=== PATIENT | male | born 1950 | race Caucasian/White ===

== ENCOUNTER 2022-10-02 17:38 | Inpatient (IN) | payer MEDICARE, BC, SELFPAY ==
[2022-10-02] VITALS (7 sets, daily range): BP systolic 108–149; BP diastolic 79–86; PULSE 87–93; RESP 16–34; TEMP 36.6–37.7; O2SAT 88–94
--- NOTE | ~2022-10-02 | XR_ITS ---
EXAMINATION: XR abdomen/kub 1V DATE: 10/13/2022 16:36 INDICATION: Orogastric tube placement. TECHNIQUE: A supine view of the abdomen was obtained. COMPARISON: Chest single view 10/13/2022 FINDINGS: The lower abdomen is excluded. The orogastric tube tip is in the distal stomach. There are airspace opacities in all right lung zones and in left mid and lower lung zones. There are small pleu ral effusions. No pneumothorax. The heart size is obscured. The endotracheal tube tip is 5.6 cm above the sergio. Median sternotomy wires are noted. A right upper extremity peripherally inserted central venous catheter (PICC) is seen with tip at the superior cavoatrial junction. IMPRESSION: 1. Orogastric tube tip in the distal stomach. 2. Worsened diffuse lung disease, consistent with pulmonary edema versus pneumonia. 3. Worsened small pleural effusions. Reviewed, dictated and finalized at location A. IMPRESSION: 1. Orogastric tube tip in the distal stomach. 2. Worsened diffuse lung disease, consistent with pulmonary edema versus pneumo pema. 3. Worsened small pleural effusions.
--- NOTE | ~2022-10-02 | XR_ITS ---
Portable chest x-ray Comparison: 10/09/2022 at 5:35 AM Clinical History: PICC line repositioning Findings: Right-sided PICC line is now in satisfactory position. ET tube and NG tube are in satisfac tory positions. Moderate bibasilar pulmonary edema pattern and probable minimal pleural effusions are present. Cardiomediastinal silhouette is stable. Bones and soft tissues are unremarkable. Impression: Support tubes are in satisfactory position, as above. Moderate pulmonary edema pattern and small pleural effusions. Reviewed, dictated and finalized at location M. Impression: Support tubes are in satisfactory position, as above. Moderate pulmonary edema pattern and small pleural effusions.
--- NOTE | ~2022-10-02 | XR_ITS ---
EXAMINATION: XR chest 1V portable INDICATION: Respiratory failure TECHNIQUE: Portable AP chest at 0547 hours COMPARISON: 10/02/2022 FINDINGS: The endotracheal tube ends approximately 4.5 cm above the sergio. The nasogastric tube is f ollowed as far as the stomach. Its tip is beyond the inferior margin of the radiograph. A right upper extremity PICC its with this tip in the midsuperior vena cava. Interstitial opacities of the mid and lower lung zones persist with slight improvement. No pleural effusion or pneumothorax. The cardiomed iastinal silhouette is stable. Median sternotomy wires and mediastinal surgical clips are seen, likel y from prior coronary artery bypass grafting. IMPRESSION: 1. Improved interstitial opacities of the mid and lower lung zones, likely improving pulmonary edema. Reviewed, dictated and finalized at location A. IMPRESSION: 1. Improved interstitial opacities of the mid and lower lung zones, likely impr oving pulmonary edema.
--- NOTE | ~2022-10-02 | XR_ITS ---
XR chest 2V 10/02/2022 18:44 Indication: Shortness of breath and cough Procedure: 2 view chest Comparison: No prior studies for comparison. Findings: Status post median sternotomy for CABG. Heart size normal. No edema. Bibasilar airspace con solidation, consistent with pneumonia. No pneumothorax. No acute osseous abnormality. Impression: 1: Bibasilar airspace disease, compatible with pneumonia. Reviewed, dictated and finalized at location A. Impression: 1: Bibasilar airspace disease, compatible with pneumonia.
--- NOTE | ~2022-10-02 | XR_ITS ---
EXAMINATION: XR chest 1V portable DATE: 10/08/2022 06:17 INDICATION: Respiratory failure. Pneumonia. TECHNIQUE: A single frontal view of the chest was obtained. COMPARISON: Chest single view 10/07/2022 FINDINGS: There are airspace opacities in the mid and lower lung zones. There is a small left pleural effusion. No pneumothorax. The heart size is normal. There are changes of heart valve replacement. T he endotracheal tube tip is 3.4 cm above the sergio. The nasogastric tube tip is beyond the inferior margin of the radiograph, but at least to the stomach. A right upper extremity peripherally inserted central venous catheter (PICC) is seen with tip in the superior vena cava. IMPRESSION: 1. Worsened airspace opacities in the mid and lower lung zones, consistent with pneumonia. 2. Small left pleural effusion. Reviewed, dictated and finalized at location A.
--- NOTE | ~2022-10-02 | XR_ITS ---
EXAMINATION: XR chest 1V portable INDICATION: Shortness of breath TECHNIQUE: Portable AP chest at 0741 hours COMPARISON: 10/04/2022 FINDINGS: Airspace opacities of the mid and lower lung zones persist but have improved. No pleural ef fusion or pneumothorax. The cardiomediastinal silhouette is normal. Median sternotomy wires are consi stent with prior cardiac surgery. IMPRESSION: 1. Improved airspace opacities of the mid and lower lung zones, consistent with atelectasis versus pn eumonia versus pulmonary edema. Reviewed, dictated and finalized at location A. IMPRESSION: 1. Improved airspace opacities of the mid and lower lung zones, consistent with atelectasis versus pneumonia versus pulmonary edema.
--- NOTE | ~2022-10-02 | US_ITS ---
EXAMINATION: US abdomen limited DATE: 10/05/2022 13:37 INDICATION: Elevated liver function tests TECHNIQUE: Multiple grayscale and Doppler ultrasound images of the abdomen were obtained. COMPARISON: None available FINDINGS: Bowel gas obscures visualization of the pancreas. The visualized portions of the pancreas a re unremarkable. The liver is normal with normal echogenicity and echotexture. No surface nodularity. Normal hepatopetal flow in the main portal vein. The gallbladder is normal with no abnormal wall thi ckening, pericholecystic fluid or stones. The normal common bile duct measures 6 mm. There was no son ographic Huang sign. IMPRESSION: 1. No sonographic correlate for the patient's symptoms. Reviewed, dictated and finalized at location A.
--- NOTE | ~2022-10-02 | XR_ITS ---
EXAMINATION: XR chest 1V portable DATE: 10/06/2022 05:37 INDICATION: Respiratory failure. Pneumonia. TECHNIQUE: A single frontal view of the chest was obtained. COMPARISON: Chest single view 10/05/2022 FINDINGS: There are airspace opacities in the mid and lower lung zones. No pleural effusion or pneumo thorax. The heart size is normal. There are changes of aortic valve replacement. The endotracheal tub e tip is 4.3 cm above the sergio. The nasogastric tube tip is beyond the inferior margin of the radio graph, but at least to the stomach. A right upper extremity peripherally inserted central venous cath eter (PICC) is seen with tip in the superior vena cava. IMPRESSION: 1. Stable airspace opacities in the mid and lower lung zones, consistent with pneumonia. Reviewed, dictated and finalized at location A. IMPRESSION: 1. Stable airspace opacities in the mid and lower lung zones, consistent with p neumonia.
--- NOTE | ~2022-10-02 | XR_ITS ---
EXAMINATION: XR chest 1V portable DATE: 10/07/2022 06:30 INDICATION: Respiratory failure. Pneumonia. TECHNIQUE: A single frontal view of the chest was obtained. COMPARISON: Chest one view 10/06/2022 FINDINGS: There are airspace opacities in the mid and lower lung zones. No pleural effusion or pneumo thorax. The heart size is normal. The endotracheal tube tip is 5.2 cm above the sergio. Median sterno belinda wires and mediastinal surgical clips are seen, likely from prior coronary artery bypass grafting . The nasogastric tube tip is beyond the inferior margin of the radiograph, but at least to the stoma ch. A right upper extremity peripherally inserted central venous catheter (PICC) is seen with tip in the superior vena cava. IMPRESSION: 1. Stable airspace opacities in the mid and lower lung zones, consistent with pneumonia. Reviewed, dictated and finalized at location A. IMPRESSION: 1. Stable airspace opacities in the mid and lower lung zones, consistent with p neumonia.
--- NOTE | ~2022-10-02 | XR_ITS ---
EXAMINATION: XR chest PICC line INDICATION: PICC insertion TECHNIQUE: Portable AP chest at 1106 hours COMPARISON: 0832 hours FINDINGS: A right upper extremity PICC has been inserted which ends with its tip in the distal superi or vena cava. The endotracheal tube ends approximately 2.6 cm above the sergio. The nasogastric tube is followed as far as the stomach. Its tip is beyond the inferior margin of the radiograph. There are stable airspace opacities of the mid and lower lung zones. No pleural effusion or pneumothorax ident ified. IMPRESSION: 1. Right upper extremity PICC ending with its tip in the distal superior vena cava, otherwise no sign ificant interval change. Reviewed, dictated and finalized at location A. IMPRESSION: 1. Right upper extremity PICC ending with its tip in the distal superior vena c denice, otherwise no significant interval change.
--- NOTE | ~2022-10-02 | XR_ITS ---
EXAMINATION: XR chest ET placement INDICATION: Respiratory failure TECHNIQUE: Portable AP chest at 0832 hours COMPARISON: 0741 hours FINDINGS: An endotracheal tube is been inserted which ends 2.4 cm above the sergio. The nasogastric t ube is followed as far as the stomach. Its tip is beyond the inferior margin of the radiograph. Airsp judith opacities of the mid and lower lung zones persist without significant change. No definite pleural effusion or pneumothorax identified. The cardiomediastinal silhouette is stable. IMPRESSION: 1. Support tubes in adequate position. 2. Airspace opacities of the mid and lower lung zones, consistent with atelectasis versus pneumonia v ersus pulmonary edema. Reviewed, dictated and finalized at location A. IMPRESSION: 1. Support tubes in adequate position. 2. Airspace opacities of the mid and lower lung zones, consistent with atelecta sis versus pneumonia versus pulmonary edema.
--- NOTE | ~2022-10-02 | XR_ITS ---
EXAMINATION: XR chest 1V portable DATE: 10/12/2022 07:32 INDICATION: Respiratory failure TECHNIQUE: frontal view of the chest was obtained. COMPARISON: Chest radiograph dated 10/11/22 FINDINGS: Endotracheal tube tip 5.6 cm above the sergio. Nasogastric tube extends to the stomach with distal ti p near the level of the gastric outlet. Right upper extremity peripherally inserted central venous ca theter (PICC) tip at the superior cavoatrial junction. Opacities in bilateral mid and lower lung zones. Indistinct left hemidiaphragm suggesting small left pleural effusion. No pneumothorax. Cardiac silhouette is obscured. Median sternotomy wires, ostial ma rkers and mediastinal surgical clips consistent with prior coronary artery bypass grafting. Aortic va lve repair. Retained epicardial pacemaker leads. IMPRESSION: 1. Opacities in bilateral mid and lower lung zones which could represent pulmonary edema, pneumonia, atelectasis or some combination thereof. 2. Likely small left pleural effusion. Reviewed, dictated and finalized at location A. IMPRESSION: 1. Opacities in bilateral mid and lower lung zones which could represent pulmon anne marie edema, pneumonia, atelectasis or some combination thereof. 2. Likely small left pleural effusion.
--- NOTE | ~2022-10-02 | XR_ITS ---
EXAMINATION: XR chest 1V portable INDICATION: Shortness of breath TECHNIQUE: Portable AP chest at 1114 hours COMPARISON: 10/02/2022 FINDINGS: There are airspace opacities of the mid and lower lung zones with worsening on the left. No pleural effusion or pneumothorax. Cardiomegaly is noted. Median sternotomy wires and mediastinal malka gical clips are seen, likely from prior coronary artery bypass grafting. IMPRESSION: 1. Airspace opacities of the mid and lower lung zones with worsening on the left, consistent with ate lectasis versus pneumonia. Reviewed, dictated and finalized at location A. IMPRESSION: 1. Airspace opacities of the mid and lower lung zones with worsening on the lef t, consistent with atelectasis versus pneumonia.
--- NOTE | ~2022-10-02 | XR_ITS ---
Portable chest x-ray Comparison: 10/13/2022 Clinical History: PICC line position Findings: Right-sided PICC line is present, tip is in the right subclavian region. Endotracheal tube and NG tube are in satisfactory positions. Bilateral groundglass and interstitial pulmonary disease is present. No definite pleural effusion or pneumothorax. Cardiomediastinal silhouette is stable. Link mariza and soft tissues are unremarkable. Impression: Right-sided PICC line tip is in the right subclavian region. Consider further advancement of the SVC. Stable pulmonary disease, as above. Correlate for pulmonary edema, infection, and/or chronic intersti tial disease. Additional support tubes, as above. Reviewed, dictated and finalized at location . Impression: Right-sided PICC line tip is in the right subclavian region. Consider further a dvancement of the SVC. Stable pulmonary disease, as above. Correlate for pulmonary edema, infection, a nd/or chronic interstitial disease. Additional support tubes, as above.
--- NOTE | ~2022-10-02 | XR_ITS ---
Portable chest x-ray Comparison: 10/09/2022 Clinical History: Respiratory failure Findings: Endotracheal tube, NG tube, and right-sided PICC line are in place. Moderate pulmonary wesley ma pattern is present. Cardiomediastinal silhouette is stable. Bones and soft tissues are unremarkab le. Impression: Moderate groundglass pulmonary edema pattern. Support tubes, as above. Reviewed, dictated and finalized at location . Impression: Moderate groundglass pulmonary edema pattern. Support tubes, as above.
--- NOTE | ~2022-10-02 | XR_ITS ---
Portable chest x-ray Comparison: 10/08/2022 Clinical History: Respiratory failure Findings: Endotracheal tube, NG tube are in satisfactory positions. Right-sided PICC line is in plac e, however the tip is now reversed back upon itself in the right subclavian region. There is mild to moderate bibasilar pulmonary edema pattern and probable small pleural effusions. Cardiomediastinal s ilhouette is stable. Bones and soft tissues are unremarkable. Impression: Right-sided PICC line tip has become malpositioned since prior exam, with the line reversed upon itse lf in the right subclavian region. Repositioning of the PICC line is advised to ensure tip placement in the SVC. Moderate bibasilar pulmonary edema with small bilateral pleural effusions. Additional support tubes, as above. Reviewed, dictated and finalized at location M. Impression: Right-sided PICC line tip has become malpositioned since prior exam, with the l ine reversed upon itself in the right subclavian region. Repositioning of the P ICC line is advised to ensure tip placement in the SVC. Moderate bibasilar pulmonary edema with small bilateral pleural effusions. Additional support tubes, as above.
--- NOTE | ~2022-10-02 | XR_ITS ---
Portable chest x-ray Comparison: 10/12/2022 Clinical History: Respiratory failure Findings: Endotracheal tube, NG tube, and right-sided PICC line are in place. There is mild bibasila r pulmonary edema pattern, improved from prior exam. Cardiomediastinal silhouette is stable. Bones a nd soft tissues are unremarkable. Impression: Mild pulmonary edema pattern, improved from prior exam. Support tubes, as above. Reviewed, dictated and finalized at location . Impression: Mild pulmonary edema pattern, improved from prior exam. Support tubes, as above.
--- NOTE | ~2022-10-02 | XR_ITS ---
EXAMINATION: XR abdomen NG/feed tube insert INDICATION: OG tube insertion TECHNIQUE: Portable AP KUB-[id number] at 0833 hours COMPARISON: None available FINDINGS: The OG tube is in the stomach. The bowel gas pattern is nonspecific. Airspace opacities are noted in the lung bases. IMPRESSION: 1. OG tube in the stomach. Reviewed, dictated and finalized at location A. IMPRESSION: 1. OG tube in the stomach.
--- NOTE | 2022-10-02 17:56 | ECG_ITS ---
Measurements Intervals [place] Rate: 92 P: 36 NH: 182 QRS: -66 QRSD: 142 T: 24 QT: 413 QTc: 513 Interpretive Statements SINUS RHYTHM RIGHT BUNDLE BRANCH BLOCK [120+ ms QRS DURATION, UPRIGHT V1, 40+ ms S IN I/aVL/V4/V5/V6] LEFT ANTERIOR FASCICULAR BLOCK [QRS AXIS <= -45, QR IN I, RS IN II] MINIMAL VOLTAGE CRITERIA FOR LVH, CONSIDER NORMAL VARIANT [MEETS CRITERIA IN ONE OF: R(aVL), S(V1), R(V5), R(V5/V6)+S(V1)] NO PREVIOUS ECG AVAILABLE FOR COMPARISON Electronically Signed On 10-02-2022 18:41:01 CDT by Tasha Ruiz M.D.
--- NOTE | 2022-10-02 18:22 | PC.NURSE ---
Pt placed on 4 liters NC, improved to 92%. No bed available at this time, returned to waiting room. Charge nurse aware. EKG and labs sent. Niece waiting with patient, instructed to alert RN with any change in status.
[2022-10-02 18:26] LABS: Basophils Percent Auto 0.1 % (0.2-1.2); Hematocrit 42.3 % (42.0-52.0); Hemoglobin 14.8 g/dL (14.0-18.0); Immature Granulocyte Absolute 0.05 K/mm3 (0.00-0.031); Immature Granulocyte Percent A 0.5 % (0-0.5); Lymphocytes Absolute Auto 0.79 K/mm3 (0.9-3.2); Lymphocytes Percent Auto 8.6 % (18.3-44.2); Mean Corpuscular Hemoglobin 32.4 pg (26-34); Mean Corpuscular Volume 92.6 fl (80-100); Mean Platelet Volume 9.7 fl (7.4-10.4); Monocytes Absolute Auto 0.7 K/mm3 (0.1-0.6); Monocytes Percent Auto 7.4 % (2.6-8.5); Neutrophils Absolute Auto 7.6 K/mm3 (1.3-6.7); Neutrophils Percent Auto 83.4 % (45.5-73.1); Platelet Count Result 199 k/mm3 (150-375); Red Blood Count 4.57 M/mm3 (4.6-6.20); Red Cell Distribution Width 12.8 % (11.5-14.5); White Blood Count 9.1 K/mm3 (4.5-10.0)
[2022-10-02 18:32] LABS: Alanine Aminotransferase 65 U/L (6-50); Albumin Level 4.5 g/dL (3.5-5.1); Alkaline Phosphatase 83 U/L (38-126); Anion Gap 12 mmol/L (8-16); Aspartate Amino Transferase 106 U/L (17-59); Bilirubin,Total 1.1 mg/dL (0.2-1.3); Blood Urea Nitrogen 29 mg/dL (9-20); Calcium 8.6 mg/dL (8.4-10.2); Carbon Dioxide 26 mmol/L (22-30); Chloride 97 mmol/L (98-107); Estimated CRCL calculation 36 ml/min; Estimated Glomerular Filt Rate 43; Glucose 213 mg/dL (65-110); Potassium 3.4 mmol/L (3.4-5.0); Sodium 135 mmol/L (137-145)
--- NOTE | 2022-10-02 20:34 | ED.SOB ---
HPI - SOB/Dyspnea General Chief Complaint: Shortness of Breath/Dyspnea Stated Complaint: Covid eval Time Seen by Provider: 10/02/22 19:59 History of Present Illness HPI Narrative: Patient is a 71-year-old male with a history of diabetes, hypertension, hyperlipidemia presenting with cough and shortness of breath. Patient states that for the last several days he has had a productive cough as well as shortness of breath. States that he has had a decreased appetite. States that he might have COVID. He denies chest pain. No headache, numbness or weakness, abdominal pain, vomiting, diarrhea, dysuria, leg swelling. Related Data Home Medications Medication Instructions Recorded Confirmed aspirin 81 mg tablet,delayed 81 mg PO DAILY 05/31/19 10/02/22 release (Adult Low Dose Aspirin) multivitamin,mi-byoh-ndxqriix 1 tablet PO DAILY 05/31/19 10/02/22 (Complete Multivitamin tablet) Allergies Allergy/AdvReac Type Severity Reaction Status Date / Time No Known Allergies Allergy Unknown Verified 10/02/22 22:04 Review of Systems Review of Systems: All systems reviewed & are unremarkable except as noted in HPI and below PMFSH Past Medical History Medical History (Updated 10/03/22 @ 23:36 by Rabia Bui MD) Aortic stenosis Status post aortic valve replacement x2 CHF (congestive heart failure), NYHA class II Managed by Dr. Romero: Echocardiogram 07/10/2021: Suboptimal image quality contrast used. Hyperdynamic left ventricle with EF of greater than 70%, impaired diastolic relaxation grade 1, aortic valve velocity 2.5 m/sec mean gradient 14 valve area 2.02 centimeters squared with normal appearing bioprosthetic inspiris 23 mm valve with normal valve gradients RVSP is normal at 31 Chronic renal insufficiency, stage III (moderate) Diabetes Gout Hypercholesterolemia Hypertension Incarcerated ventral hernia Situational depression Surgical History Surgical History (Updated 10/03/22 @ 04:14 by Willa Nguyễn DO) H/O aortic valve replacement with porcine valve H/O ventral hernia repair History of aortic valve replacement with bioprosthetic valve Patient initially had a porcine aortic valve replacement then had a bioprosthetic aortic valve replacement. 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 HEAD: Normocephalic, atraumatic. EYES: PERRLA and EOMI. ENT: Nares clear, no rhinorrhea or epistaxis. Mucous membranes moist. NECK: Supple. CHEST: Coarse breath sounds, + cough, saturating low to mid 90s on 4 L nasal cannula HEART: Regular rate and rhythm. Normal peripheral pulses. AB
[2022-10-02 20:49] LABS: Influenza A QL RT-PCR Negative (Negative); Influenza B QL RT-PCR Negative (Negative); RSV RNA, RT-PCR Negative (Negative); SARS-CoV-2 RNA PCR Positive (Negative)
[2022-10-02] MEDS: SODIUM CHLORIDE 0.9% IV 1,000 ML 999 ML IV CONT (20:57)
[2022-10-02 21:09] LABS: Lactic Acid Reflex 1.4 mmol/L (0.7-2.0)
[2022-10-02 21:20] LABS: Appearance Urine Cloudy (Clear); Bacteria Urine None Seen /hpf; Bilirubin Urine 1+ (Negative); Blood Urine 3+ (Negative); Color Urine Dark Yellow (Yellow); Glucose Urine UA Negative (Negative); Ketones Urine Trace mg/dL (Negative); Leukocyte Esterase Ur Negative LEU/UL (Negative); Mucus Urine Present /lpf; Need Manual Microscopic Reviewed; Nitrate Urine Negative (Negative); Protein Urine 4+ mg/dL (Negative); RBC Urine 0-2 /hpf (0-2); Specific Grav Ur 1.031 (1.001-1.035); Squamous Epithelial Cell Urine Few /hpf (Few); WBC Urine 0-5 /hpf; pH Urine 5.5 (5.0-9.0)
[2022-10-02 21:21] LABS: Add Urine Microscopic? YES
--- NOTE | 2022-10-02 22:00 | ADMGEN ---
This patient, Gume Ellis, was admitted to Medical Room 248-. Patient/family oriented to hospital policies and general routines including ID bracelet, bed and alarms, visiting hours, pain management, procedures, bathroom and other care routines, personal items, smoking policy, room service/diet, and visiting hours. Information on how to activate the Rapid Response Team has been discussed. Patient/Family are encouraged to report perceived risks to care and to ask questions if they do not understand what they are told or what they should do.
[2022-10-03] VITALS (16 sets, daily range): BP systolic 107–116; BP diastolic 64–70; PULSE 63–93; RESP 16–20; TEMP 36.6–36.8; O2SAT 88–94
[2022-10-03] MEDS: ZOLPIDEM TARTRATE (*CRX) 5 MG TABLET 10 MG PO ×2 (00:29→20:55)
--- NOTE | 2022-10-03 03:55 | PM.IMHP ---
H&P: HPI History of Present Illness Date/Time: 10/03/22 03:55 Chief Complaint: Sick for 10 days Narrative: 71-year-old male with a past medical history of essential hypertension, hyperlipidemia, type 2 diabetes mellitus, bioprosthetic aortic valve and gout who presented to the ER with 10 days of upper respiratory symptoms. The patient arrived to the ER via private vehicle and brought in by his niece. The patient has been more forgetful, short of breath and had a nonproductive cough. He has been taking Tylenol for his symptoms at home and was having some chills and subjective fevers. On arrival to the ER his temperature was 100?. He has had decreased appetite and has not had any solid food for a few days. He has been drinking some clear soda. His last void was at 09:00 and had no urge to urinate in the ER. He had not been tested for COVID and has never had a COVID vaccine. The patient reports that his symptoms had sudden onset and have not improved. He has not the best historian. The patient reports that he lives alone since his girlfriend 4 months ago. However found of from another source of the patient's girlfriend 2 years ago. The patient then corrects himself states that he lost his son 4 months ago. Patient is not a reliable historian. Review of Systems Review of Systems: 12 systems were reviewed with pertinent positives and negatives per HPI. Except as documented in the HPI, all other systems were reviewed and are negative. However the patient is not the best historian and review of systems a subsequently compromise. The patient tells nursing staff that he was recently diagnosed with a DVT but then when I ask him about a DVT the patient denies any history of DVT. Review of external records only shows an ultrasound from 2018 which was negative for DVT. ON LICENSE OF [facility] Past Medical History Medical History (Updated 10/03/22 @ 04:28 by Willa Nguyễn DO) Aortic stenosis Status post aortic valve replacement x2 CHF (congestive heart failure), NYHA class II Managed by Dr. Romero: Echocardiogram 07/10/2021: Suboptimal image quality contrast used. Hyperdynamic left ventricle with EF of greater than 70%, impaired diastolic relaxation grade 1, aortic valve velocity 2.5 m/sec mean gradient 14 valve area 2.02 centimeters squared with normal appearing bioprosthetic inspiris 23 mm valve with normal valve gradients RVSP is normal at 31 Chronic renal insufficiency, stage III (moderate) Diabetes Gout Hypercholesterolemia Hypertension Incarcerated ventral hernia Situational depression Surgical History Surgical History (Updated 10/03/22 @ 04:14 by Willa Nguyễn DO) H/O aortic valve replacement with porcine valve H/O ventral hernia repair History of aortic valve replacement with bioprosthetic valve Patient initially had a porcine aortic valve replacement then had a bioprosthetic aortic valve replacement. 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 Code status: Full code Surrogate decision maker: Ana Cristina Schofield (niece) Smoking status: Never smoker Second hand tobacco smoke exposure: No Alcohol intake: never Substance use: never Substance use type: does not use Lack of Transportation: No Lack of Food: Never True Current Housing: I Have Housing Concerned About Future Housing: No Difficulty Paying Gas/Electric Bills: No Difficulty Paying for Meds: No Currently Unemployed: No Education: Grade School Difficulty w/ Childcare or Family Care: No Living arrangements: alone Occupa
[2022-10-03] MEDS: SODIUM CHLORIDE 0.9% IV 1,000 ML 125 ML IV CONT (05:58)
[2022-10-03 06:39] LABS: Hematocrit 36.7 % (42.0-52.0); Hemoglobin 12.6 g/dL (14.0-18.0); Mean Corpuscular HGB Conc 34.3 g/dl (32-36); Mean Corpuscular Hemoglobin 31.5 pg (26-34); Mean Corpuscular Volume 91.8 fl (80-100); Mean Platelet Volume 9.4 fl (7.4-10.4); Platelet Count Result 188 k/mm3 (150-375); Red Cell Distribution Width 12.7 % (11.5-14.5); White Blood Count 6.4 K/mm3 (4.5-10.0)
[2022-10-03 06:53] LABS: Alanine Aminotransferase 63 U/L (6-50); Albumin Level 3.8 g/dL (3.5-5.1); Alkaline Phosphatase 61 U/L (38-126); Aspartate Amino Transferase 115 U/L (17-59); Bilirubin,Total 0.8 mg/dL (0.2-1.3)
[2022-10-03 06:54] LABS: Anion Gap 7 mmol/L (8-16); Blood Urea Nitrogen 31 mg/dL (9-20); Calcium 7.9 mg/dL (8.4-10.2); Carbon Dioxide 27 mmol/L (22-30); Chloride 103 mmol/L (98-107); Estimated CRCL calculation 44 ml/min; Estimated Glomerular Filt Rate 54; Glucose 208 mg/dL (65-110); Lactate Dehydrogenase 414 U/L (120-246); Potassium 3.5 mmol/L (3.4-5.0); Sodium 137 mmol/L (137-145)
[2022-10-03 08:03] LABS: Hepatitis B Surface Antigen Negative (Negative)
[2022-10-03 08:09] LABS: HAV RESULT Negative (Negative); Hepatitis B Core IgM Result Negative (Negative)
[2022-10-03 08:21] LABS: Hepatitis C Virus Antibody Negative (Negative)
[2022-10-03 08:27] LABS: Glucose Point of Care 217 mg/dl (65-105)
[2022-10-03] MEDS: LEVALBUTEROL HFA (*SP) 15 GM INHALER 2 PUFF INHALATION ×3 (09:00→20:00)
[2022-10-03] MEDS: amLODIPine BESYLATE 5 MG TABLET 10 MG PO (09:04)
[2022-10-03] MEDS: ATORVASTATIN 40 MG TABLET 80 MG PO (09:04)
[2022-10-03] MEDS: METOPROLOL TARTRATE 12.5 MG TABLET PO ×2 (09:04→20:55)
[2022-10-03] MEDS: ENOXAPARIN 40 MG/0.4 ML SYRINGE SUB-Q (09:04)
[2022-10-03] MEDS: POTASSIUM CHLORIDE 10 MEQ TABLET.ER PO (09:04)
[2022-10-03] MEDS: allopurinoL 100 MG TABLET PO (09:05)
[2022-10-03] MEDS: THERAPEUTIC MULTIVITAMINS/MINERALS TAB (*BKC) 1 TABLET PO (09:05)
[2022-10-03] MEDS: ASPIRIN 81 MG ENTERIC TABLET PO (09:05)
[2022-10-03] MEDS: EZETIMIBE 10 MG TABLET PO (09:05)
[2022-10-03] MEDS: INSULIN ASPART (*BKC) 100 UNITS/ML SUB-Q ×3 (09:17→17:25)
--- NOTE | 2022-10-03 11:45 | PM.IMPN ---
Progress Note: A&P Assessment and Plan (1) Pneumonia due to COVID-19 virus: Code(s): U07.1 - COVID-19; J12.82 - Pneumonia due to coronavirus disease 2018 Status: Acute Assessment and Plan: Sepsis due to COVID pneumonia with associated hypoxic respiratory failure.? Sepsis criteria met with tachypnea, fever and pneumonia.? Continue supplemental oxygen, wean to maintain saturation >90% add p.r.n. and scheduled Xopenex inhalers.? Continue Decadron for COVID pneumonia.? Rocephin and azithromycin given in the ED Unvaccinated against COVID Continue azithromycin Blood cultures have been ordered and are pending.? Received 1 L of fluid bolus in the ER Stopped maintenance IV fluids as they were given for urine production? Check inflammatory markers including ferritin 1090 and LDH 414.? Hold off on Remdesivir given the patient's transaminitis.? (2) Sepsis with acute hypoxic respiratory failure: Qualifiers: Sepsis type: sepsis due to unspecified organism Severe sepsis shock status: without septic shock Qualified Code(s): A41.9 - Sepsis, unspecified organism; R65.20 - Severe sepsis without septic shock; J96.01 - Acute respiratory failure with hypoxia Code(s): A41.9 - Sepsis, unspecified organism; R65.20 - Severe sepsis without septic shock; J96.01 - Acute respiratory failure with hypoxia Status: Acute Assessment and Plan: See above (3) Type 2 diabetes mellitus with hyperglycemia, without long-term current use of insulin: Code(s): E11.65 - Type 2 diabetes mellitus with hyperglycemia Status: Acute Assessment and Plan: Current glucose is 208 Continue to trend labs Hold metformin for ow ISS Adjust therapy as indicated (4) Transaminitis: Code(s): R74.01 - Elevation of levels of liver transaminase levels Status: Acute Assessment and Plan: Transaminitis likely secondary to COVID. AST/ALT 115/63 Acute hepatitis panel negative trend labs Most likely related to COVID infection (5) Acute kidney injury superimposed on CKD: Code(s): N17.9 - Acute kidney failure, unspecified; N18.9 - Chronic kidney disease, unspecified Status: Acute Assessment and Plan: Acute kidney injury on chronic kidney disease. Current BUN/Cr 31/1.30 BUN/Cr on admission 29/1.60 Fluids given in the ED avoid nephrotoxic medications Continue to trend labs Adjust therapy as indicated (6) Insomnia: Qualifiers: Insomnia type: primary Qualified Code(s): F51.01 - Primary insomnia Code(s): G47.00 - Insomnia, unspecified Status: Acute Assessment and Plan: Continue home medications Trend sleep wake pattern Time Spent With Patient Time: 52 minutes Time with patient: Greater than 35 minutes Subjective Date/time seen: 10/03/22 1145 Interval history: 10/03/22 1145 Went to patient's room because the nurse was stating that the patient was desatting per the monitor. Upon arrival into the room the patient did not have any respiratory distress or any issues. He stated that he felt fine and he was not in any distress or even felt short of breath. He also stated that he feels like he is back to his baseline. He denies any current chest pain, shortness a breath, nausea, vomiting, diarrhea constipation. Patient was in the bathroom having a bowel movement and felt just great. 10/03/22? 03:55 71-year-old male with a past medical history of essential hypertension, hyperlipidemia, type 2 diabetes mellitus, bioprosthetic aortic valve and gout who presented to the ER with 10 days of upper respiratory symptoms.? The patient arrived to the ER via private vehicle and brought in by his niece.? The patient has been more forgetful, short of breath and had a nonproductive cough.? He has been taking Tylen
--- NOTE | 2022-10-03 11:45 | P.PNIM_ITS ---
Progress Note: A&P Assessment and Plan (1) Pneumonia due to COVID-19 virus: Code(s): U07.1 - COVID-19; J12.82 - Pneumonia due to coronavirus disease 2018 Status: Acute Assessment and Plan: * Sepsis due to COVID pneumonia with associated hypoxic respiratory failure.? * Sepsis criteria met with tachypnea, fever and pneumonia.? * Continue supplemental oxygen, wean to maintain saturation >90% * add p.r.n. and scheduled Xopenex inhalers.? * Continue Decadron for COVID pneumonia.? * Rocephin and azithromycin given in the ED * Unvaccinated against COVID * Continue azithromycin * Blood cultures have been ordered and are pending.? * Received 1 L of fluid bolus in the ER * Stopped maintenance IV fluids as they were given for urine production? * Check inflammatory markers including ferritin 1090 and LDH 414.? * Hold off on Remdesivir given the patient's transaminitis.? (2) Sepsis with acute hypoxic respiratory failure: Qualifiers: Sepsis type: sepsis due to unspecified organism Severe sepsis shock status: without septic shock Qualified Code(s): A41.9 - Sepsis, unspecified organism; R65.20 - Severe sepsis without septic shock; J96.01 - Acute respiratory failure with hypoxia Code(s): A41.9 - Sepsis, unspecified organism; R65.20 - Severe sepsis without septic shock; J96.01 - Acute respiratory failure with hypoxia Status: Acute Assessment and Plan: * See above (3) Type 2 diabetes mellitus with hyperglycemia, without long-term current use of insulin: Code(s): E11.65 - Type 2 diabetes mellitus with hyperglycemia Status: Acute Assessment and Plan: * Current glucose is 208 * Continue to trend labs * Hold metformin for ow * ISS * Adjust therapy as indicated (4) Transaminitis: Code(s): R74.01 - Elevation of levels of liver transaminase levels Status: Acute Assessment and Plan: * Transaminitis likely secondary to COVID. * AST/ALT 115/63 * Acute hepatitis panel negative * trend labs * Most likely related to COVID infection (5) Acute kidney injury superimposed on CKD: Code(s): N17.9 - Acute kidney failure, unspecified; N18.9 - Chronic kidney disease, unspecified Status: Acute Assessment and Plan: * Acute kidney injury on chronic kidney disease. * Current BUN/Cr 15/07.30 * BUN/Cr on admission 13/07.60 * Fluids given in the ED * avoid nephrotoxic medications * Continue to trend labs * Adjust therapy as indicated (6) Insomnia: Qualifiers: Insomnia type: primary Qualified Code(s): F51.01 - Primary insomnia Code(s): G47.00 - Insomnia, unspecified Status: Acute Assessment and Plan: * Continue home medications * Trend sleep wake pattern Time Spent With Patient Time: 52 minutes Time with patient: Greater than 35 minutes Subjective Date/time seen: 10/03/221144 Interval history: 10/03/22 1145 Went to patient's room because the nurse was stating that the patient was desatting per the monitor. Upon arrival into the room the patient did not have any respiratory distress or any issues. He stated that he felt fine and he was not in any distress or even felt short of breath. He also stated that he feels like he is back to his basel
[2022-10-03 12:08] LABS: Glucose Point of Care 233 mg/dl (65-105)
[2022-10-03 16:59] LABS: Glucose Point of Care 273 mg/dl (65-105)
[2022-10-03 20:24] LABS: Glucose Point of Care 302 mg/dl (65-105)
[2022-10-04] VITALS (30 sets, daily range): BP systolic 100–124; BP diastolic 54–87; PULSE 74–108; RESP 18–26; TEMP 36.7–39.3; O2SAT 90–94
[2022-10-04] MEDS: LEVALBUTEROL HFA (*SP) 15 GM INHALER 2 PUFF INHALATION ×2 (02:00→20:15)
[2022-10-04] MEDS: IBUPROFEN 400 MG TABLET PO ×3 (04:54→21:38)
[2022-10-04 06:09] LABS: Basophils Percent Auto 0.1 % (0.2-1.2); Hematocrit 35.2 % (42.0-52.0); Hemoglobin 12.2 g/dL (14.0-18.0); Immature Granulocyte Absolute 0.14 K/mm3 (0.00-0.031); Immature Granulocyte Percent A 0.8 % (0-0.5); Lymphocytes Absolute Auto 0.79 K/mm3 (0.9-3.2); Lymphocytes Percent Auto 4.6 % (18.3-44.2); Mean Corpuscular HGB Conc 34.7 g/dl (32-36); Mean Corpuscular Hemoglobin 31.5 pg (26-34); Mean Platelet Volume 9.5 fl (7.4-10.4); Monocytes Absolute Auto 0.8 K/mm3 (0.1-0.6); Monocytes Percent Auto 4.6 % (2.6-8.5); Neutrophils Absolute Auto 15.4 K/mm3 (1.3-6.7); Neutrophils Percent Auto 89.9 % (45.5-73.1); Platelet Count Result 230 k/mm3 (150-375); Red Blood Count 3.87 M/mm3 (4.6-6.20); Red Cell Distribution Width 12.7 % (11.5-14.5); White Blood Count 17.1 K/mm3 (4.5-10.0)
[2022-10-04 06:24] LABS: Alanine Aminotransferase 83 U/L (6-50); Albumin Level 3.6 g/dL (3.5-5.1); Alkaline Phosphatase 63 U/L (38-126); Anion Gap 8 mmol/L (8-16); Aspartate Amino Transferase 138 U/L (17-59); Bilirubin,Total 0.8 mg/dL (0.2-1.3); Blood Urea Nitrogen 27 mg/dL (9-20); Calcium 8.3 mg/dL (8.4-10.2); Carbon Dioxide 25 mmol/L (22-30); Chloride 104 mmol/L (98-107); Estimated CRCL calculation 56 ml/min; Estimated Glomerular Filt Rate > 60; Glucose 151 mg/dL (65-110); Magnesium 2.3 mg/dL (1.6-2.3); Potassium 3.4 mmol/L (3.4-5.0); Sodium 137 mmol/L (137-145)
[2022-10-04 08:00] LABS: Glucose Point of Care 142 mg/dl (65-105)
[2022-10-04] MEDS: allopurinoL 100 MG TABLET PO (08:54)
[2022-10-04] MEDS: ATORVASTATIN 40 MG TABLET 80 MG PO (08:54)
[2022-10-04] MEDS: ASPIRIN 81 MG ENTERIC TABLET PO (08:54)
[2022-10-04] MEDS: EZETIMIBE 10 MG TABLET PO (08:54)
[2022-10-04] MEDS: POTASSIUM CHLORIDE 10 MEQ TABLET.ER PO (08:54)
[2022-10-04] MEDS: THERAPEUTIC MULTIVITAMINS/MINERALS TAB (*BKC) 1 TABLET PO (08:55)
[2022-10-04] MEDS: ENOXAPARIN 40 MG/0.4 ML SYRINGE SUB-Q (08:55)
[2022-10-04] MEDS: METOPROLOL TARTRATE 12.5 MG TABLET PO ×2 (09:08→20:30)
--- NOTE | 2022-10-04 09:30 | P.PNIM_ITS ---
Progress Note: A&P Assessment and Plan (1) Pneumonia due to COVID-19 virus: Code(s): U07.1 - COVID-19; J12.82 - Pneumonia due to coronavirus disease 2018 Status: Acute Assessment and Plan: * Sepsis due to COVID pneumonia with associated hypoxic respiratory failure.? * Sepsis criteria met with tachypnea, fever and pneumonia.? * Continue supplemental oxygen, wean to maintain saturation >90% * add p.r.n. and scheduled Xopenex inhalers.? * Discontinue Decadron for COVID pneumonia.? * Rocephin and azithromycin given in the ED * Unvaccinated against COVID * Continue azithromycin for now * Blood cultures NGTD * Received 1 L of fluid bolus in the ER * Stopped maintenance IV fluids as they were given for urine production? * inflammatory markers including ferritin 1090 and LDH 414.? (10/03/22) * Hold off on Remdesivir given the patient's transaminitis.? * repeat chest x-ray in the a.m. (2) Sepsis with acute hypoxic respiratory failure: Code(s): A41.9 - Sepsis, unspecified organism; R65.20 - Severe sepsis without septic shock; J96.01 - Acute respiratory failure with hypoxia Status: Acute Assessment and Plan: * See above (3) Type 2 diabetes mellitus with hyperglycemia, without long-term current use of insulin: Code(s): E11.65 - Type 2 diabetes mellitus with hyperglycemia Status: Acute Assessment and Plan: * Current glucose is 151 * Continue to trend labs * Hold metformin for now * ISS * Adjust therapy as indicated (4) Transaminitis: Code(s): R74.01 - Elevation of levels of liver transaminase levels Status: Acute Assessment and Plan: * Transaminitis likely secondary to COVID. * AST/ALT 138/83 * Acute hepatitis panel negative * trend labs * Most likely related to COVID infection (5) Acute kidney injury superimposed on CKD: Code(s): N17.9 - Acute kidney failure, unspecified; N18.9 - Chronic kidney disease, unspecified Status: Acute Assessment and Plan: * Acute kidney injury on chronic kidney disease. * Current BUN/Cr 27/1.00 * BUN/Cr on admission 29/1.60 * Fluids given in the ED * avoid nephrotoxic medications * Continue to trend labs * Adjust therapy as indicated (6) Insomnia: Qualifiers: Insomnia type: primary Qualified Code(s): F51.01 - Primary insomnia Code(s): G47.00 - Insomnia, unspecified Status: Acute Assessment and Plan: * Continue home medications * Trend sleep wake pattern Plan Notable fever and leukocytosis blood cultures NGTD WBC elevation most likely from steroids Continue to trend Tylenol on board Time Spent With Patient Time: 51 minutes 25 of those minutes was titrating oxygen and assessing patient Time with patient: Greater than 35 minutes Subjective Date/time seen: 10/04/22929 Interval history: 10/04/22929 Patient currently denies any chest pain, shortness a breath, nausea, vomiting, diarrhea constipation. Patient did state that he is feeling a little better but today is feeling pretty tired and weak. Oxygen has been titrated to room air. Saturation were running anywhere from 93-97%. Changed his pulse ox probe to an ear probe for further accuracy. Current
--- NOTE | 2022-10-04 09:30 | PM.IMPN ---
Progress Note: A&P Assessment and Plan (1) Pneumonia due to COVID-19 virus: Code(s): U07.1 - COVID-19; J12.82 - Pneumonia due to coronavirus disease 2018 Status: Acute Assessment and Plan: Sepsis due to COVID pneumonia with associated hypoxic respiratory failure.? Sepsis criteria met with tachypnea, fever and pneumonia.? Continue supplemental oxygen, wean to maintain saturation >90% add p.r.n. and scheduled Xopenex inhalers.? Discontinue Decadron for COVID pneumonia.? Rocephin and azithromycin given in the ED Unvaccinated against COVID Continue azithromycin for now Blood cultures NGTD Received 1 L of fluid bolus in the ER Stopped maintenance IV fluids as they were given for urine production? inflammatory markers including ferritin 1090 and LDH 414.? (10/03/22) Hold off on Remdesivir given the patient's transaminitis.? repeat chest x-ray in the a.m. (2) Sepsis with acute hypoxic respiratory failure: Code(s): A41.9 - Sepsis, unspecified organism; R65.20 - Severe sepsis without septic shock; J96.01 - Acute respiratory failure with hypoxia Status: Acute Assessment and Plan: See above (3) Type 2 diabetes mellitus with hyperglycemia, without long-term current use of insulin: Code(s): E11.65 - Type 2 diabetes mellitus with hyperglycemia Status: Acute Assessment and Plan: Current glucose is 151 Continue to trend labs Hold metformin for now ISS Adjust therapy as indicated (4) Transaminitis: Code(s): R74.01 - Elevation of levels of liver transaminase levels Status: Acute Assessment and Plan: Transaminitis likely secondary to COVID. AST/ALT 138/83 Acute hepatitis panel negative trend labs Most likely related to COVID infection (5) Acute kidney injury superimposed on CKD: Code(s): N17.9 - Acute kidney failure, unspecified; N18.9 - Chronic kidney disease, unspecified Status: Acute Assessment and Plan: Acute kidney injury on chronic kidney disease. Current BUN/Cr 27/1.00 BUN/Cr on admission 29/1.60 Fluids given in the ED avoid nephrotoxic medications Continue to trend labs Adjust therapy as indicated (6) Insomnia: Qualifiers: Insomnia type: primary Qualified Code(s): F51.01 - Primary insomnia Code(s): G47.00 - Insomnia, unspecified Status: Acute Assessment and Plan: Continue home medications Trend sleep wake pattern Plan Notable fever and leukocytosis blood cultures NGTD WBC elevation most likely from steroids Continue to trend Tylenol on board Time Spent With Patient Time: 51 minutes 25 of those minutes was titrating oxygen and assessing patient Time with patient: Greater than 35 minutes Subjective Date/time seen: 10/04/22929 Interval history: 10/04/22929 Patient currently denies any chest pain, shortness a breath, nausea, vomiting, diarrhea constipation. Patient did state that he is feeling a little better but today is feeling pretty tired and weak. Oxygen has been titrated to room air. Saturation were running anywhere from 93-97%. Changed his pulse ox probe to an ear probe for further accuracy. Currently he is sitting in a chair. White count is up to 17.1 today most likely related to steroids. Renal function is stable and back to his baseline with creatinine of 1.0. 10/03/22 1145 Went to patient's room because the nurse was stating that the patient was desatting per the monitor. Upon arrival into the room the patient did not have any respiratory distress or any issues. He stated that he felt fine and he was not in any distress or even felt short of breath. He also stated that he feels like he is back to his baseline. He denies any current chest pain, shortness a breath, nausea, vomiting, diarrhea constipation. Charles
--- NOTE | 2022-10-04 09:30 | PC.NURSE ---
Spoke with Del Cool about concerns for patient's oxygen. O2 dips down to 85-89% often, I have to encourage patient to deep breathe to bring O2 back up. Del is getting an ear probe for continuous O2 instead of finger probe, is not concerned at this time. Patient not short of breath, vitals otherwise normal.
[2022-10-04 11:59] LABS: Glucose Point of Care 189 mg/dl (65-105)
[2022-10-04 16:50] LABS: Glucose Point of Care 228 mg/dl (65-105)
[2022-10-04] MEDS: INSULIN ASPART (*BKC) 100 UNITS/ML SUB-Q (16:53)
[2022-10-04 19:20] LABS: Glucose Point of Care 241 mg/dl (65-105)
[2022-10-04] MEDS: ZOLPIDEM TARTRATE (*CRX) 5 MG TABLET 10 MG PO (20:29)
[2022-10-04 23:19] LABS: Base Excess ABG -1.6 mEq/l (+/-2.0); Fractional Inspired Oxygen 45 %; HCO3 ABG 19.7 mEq/l (22.0-26.0); Oxygen Saturation ABG 88.8 % (95.0-100.0); PO2 FiO2 Ratio Arterial Blood 1.08 %; Total Hemoglobin 13.3 g/dL (12.0-18.0)
[2022-10-04 23:20] LABS: Oxyhemoglobin 85.7 % THb (90.0-100.0); PO2 ABG 48.4 mmHg (80.0-100.0); Site Drawn RIGHT BRACHIAL; pH ABG 7.515 (7.350-7.450)
[2022-10-04 23:21] LABS: Device NASAL CANNULA
--- NOTE | 2022-10-04 23:27 | PC.NURSE ---
RESPITORY SPOKE TO DR CADENA ABOUT CRITICAL ABGS
[2022-10-04] MEDS: IPRATROPIUM BR 0.02% INH SOLN 0.5 MG/2.5 ML VIAL INHALATION (23:30)
--- NOTE | 2022-10-04 23:53 | P.PNCROSS_ITS ---
Event Note Event Note Event Note: Nursing staff called me as the patient had become acutely more altered this santino thompson. Subsequently the patient's Ambien has been discontinued. Although I think the patient's being acutely altered is due to his high fever. The patient has had persistent fevers for 3 days. He has been on antibiotics for with azithromycin and is known to have COVID. But given that the patient is still having persistent fevers and now has a significant jump in his white count I am going to broaden the patient's antibiotic coverage in had Rocephin. Will also check a MRSA screen. I will also give the patient a dose of vancomycin. Will check a MRSA screen. If the patient's MRSA screen is negative then no we can probably discontinue vancomycin. The patient is still persistently febrile. I did not want to give the patient Tylenol due to the patient's modestly elevated liver enzymes. However the patient per continues to be febrile despite ibuprofen. At this time will give a lower dose of Tylenol 500 mg q.6 hours. Assessment: Metabolic encephalopathy--possible underlying dementia. Treat acute infection. Would benefit from neuro cognitive evaluation after discharge Sepsis--with persistent fever and worsening symptoms. Chest x-ray performed and personally reviewed demonstrated worsening infiltrates. Will broaden antibiotic coverage with Rocephin and vancomycin. Continue azithromycin. Acute hypoxic respiratory failure--worsening hypoxia. Will changes Xopenex inhalers to Xopenex nebs. I think the patient is having difficulty cooperating and participating in using inhalers due to his encephalopathy. Patient will likely need to be titrated up to high-flow oxygen. Will continue Decadron. COVID pneumonia---as discussed above 35 minute spent in critical care activities. Due to a high probability of clinically significant, life threatening deterioration, the patient required my highest level of preparedness to intervene emergently and I personally spent this critical care time directly and personally managing the patient. This critical care time included obtaining a history; examining the patient; pulse oximetry; ordering and review of studies; arranging urgent treatment with development of a management plan; evaluation of patient's response to treatment; frequent reassessment; and discussions with other providers. It was exclusive of separately billable procedures and treating other patients and teaching time. Please see Assessment and Plan section and the rest of the note for further information on patient assessment and treatment.
[2022-10-05] VITALS (61 sets, daily range): BP systolic 79–165; BP diastolic 65–99; PULSE 64–128; RESP 20–59; TEMP 35.5–40.6; O2SAT 86–98
[2022-10-05] MEDS: ACETAMINOPHEN 500 MG TABLET PO ×2 (00:30→12:44)
[2022-10-05] MEDS: LEVALBUTEROL NEB 1.25 MG/3 ML INHALATION ×4 (02:30→20:43)
[2022-10-05 05:32] LABS: Basophils Percent Auto 0.2 % (0.2-1.2); Hematocrit 41.4 % (42.0-52.0); Immature Granulocyte Absolute 0.41 K/mm3 (0.00-0.031); Immature Granulocyte Percent A 2.6 % (0-0.5); Lymphocytes Absolute Auto 0.83 K/mm3 (0.9-3.2); Lymphocytes Percent Auto 5.3 % (18.3-44.2); Mean Corpuscular HGB Conc 33.8 g/dl (32-36); Mean Corpuscular Hemoglobin 31.9 pg (26-34); Mean Corpuscular Volume 94.3 fl (80-100); Mean Platelet Volume 9.5 fl (7.4-10.4); Monocytes Absolute Auto 0.8 K/mm3 (0.1-0.6); Monocytes Percent Auto 4.8 % (2.6-8.5); Neutrophils Absolute Auto 13.7 K/mm3 (1.3-6.7); Neutrophils Percent Auto 87.1 % (45.5-73.1); Platelet Count Result 287 k/mm3 (150-375); Red Blood Count 4.39 M/mm3 (4.6-6.20); White Blood Count 15.7 K/mm3 (4.5-10.0)
[2022-10-05 05:41] LABS: Alanine Aminotransferase 129 U/L (6-50); Albumin Level 3.9 g/dL (3.5-5.1); Alkaline Phosphatase 75 U/L (38-126); Anion Gap 10 mmol/L (8-16); Aspartate Amino Transferase 199 U/L (17-59); Bilirubin,Total 0.9 mg/dL (0.2-1.3); Blood Urea Nitrogen 25 mg/dL (9-20); Calcium 8.4 mg/dL (8.4-10.2); Carbon Dioxide 25 mmol/L (22-30); Chloride 100 mmol/L (98-107); Estimated CRCL calculation 56 ml/min; Estimated Glomerular Filt Rate > 60; Glucose 196 mg/dL (65-110); Magnesium 2.5 mg/dL (1.6-2.3); Potassium 3.5 mmol/L (3.4-5.0); Sodium 135 mmol/L (137-145)
--- NOTE | 2022-10-05 05:53 | PC.NURSE ---
PT MOVED TO ROOM 202 PER BED
--- NOTE | 2022-10-05 06:01 | PC.NURSE ---
0515 DR CADENA NOTIFIED O2 SATS 84-88 ON 15L HI FLOW, PT CONFUSED. NONREBREATHER PLACED ON PT, RESPIRATORY IN ROOM
--- NOTE | 2022-10-05 06:11 | PC.NURSE ---
FAMILY NOTIFIED OF TRANSFER TO ROOM 202
[2022-10-05 06:52] LABS: CRP 3.2 mg/dL (<1.0); Lactate Dehydrogenase 692 U/L (120-246)
--- NOTE | 2022-10-05 07:07 | PC.NURSE ---
Received this patient into IMU 202 at 0550 from [facility]. Report from Rae TAMEZ. When I entered the room, the patient was extremely anxious, trying to get out of bed, extremely short of breath. Applied the tele monitor and pulse ox with the patient on 100% non-rebreather and 15L high flow. B/P 165/91, HR 120 RR 36, O2 sat 82%, I immediately called RT for an AIRVO as per plan. Rd Shelton immediately came to the room and placed the patient on AIRVO 40L with 77%. I notified Willa Chaudhry RN, ICU charge, and Dr Nguyễn of status. Switched the patient from AIRVO to BIPAP and transferred him to ICU 9 at 0630. Report given to Madai Rosales RN, Dr. Nguyễn at the bedside. Family was notified by Rae TAMEZ.
[2022-10-05 07:26] LABS: INR 1.1; Prothrombin Time 13.8 Seconds (11.1-14.7)
[2022-10-05 07:42] LABS: Erythrocyte Sedimentation Rate 38 mm/hr (0-20)
--- NOTE | 2022-10-05 07:43 | PC.NURSE ---
At 0720, patient noted to be saturating 63% on the monitor. Patient noted to be removing bipap device in the room. PPE applied per RN and Bipap placed back on patient. Oxygen saturations now 90% on 75% FiO2. Patient confused and restless. MD updated and made aware.
--- NOTE | 2022-10-05 07:52 | PC.NURSE ---
Patients core temperature noted to be 104.1 degrees Fahrenheit at 0730. Ice packs applied to groin and axillae area.
--- NOTE | 2022-10-05 07:54 | PC.NURSE ---
Cooling blanket applied at 0755. Patients core temperature 104.6 degrees Fahrenheit.
--- NOTE | 2022-10-05 08:00 | PC.NURSE ---
Patient restless and continuing to attempt to remove Bipap, IV access and monitoring devices. RN at bedside. Patient re-educated on safety and importance of all medical equipment.
--- NOTE | 2022-10-05 08:24 | PCPTNOTE ---
Pt not medically appropriate for skilled therapy at this time. Please re-order therapy when pt is appropriate.
[2022-10-05 08:31] LABS: NT Pro B Type Natriuretic Pept 836 pg/mL (19.9-100)
[2022-10-05] MEDS: ETOMIDATE 20 MG/10 ML AMPUL 24 MG IV PUSH (08:40)
[2022-10-05] MEDS: MIDAZOLAM 100MG/NS 100ML(*CRX) 100 MG/100 ML BAG IV CONT (08:41)
[2022-10-05] MEDS: ROCURONIUM BROMIDE 50 MG/5 ML VIAL IV PUSH ×2 (08:41→09:34)
[2022-10-05] MEDS: FENTANYL 2,500MCG/NS250ML(*CRX 2,500 MCG/250 ML BAG IV CONT (08:42)
[2022-10-05] MEDS: FUROSEMIDE INJ 40 MG/4 ML VIAL IV PUSH (08:44)
[2022-10-05] MEDS: MINERAL OIL/WHITE PETROLATUM OINTMENT 1 APPLIC EACH EYE ×2 (09:00→20:05)
[2022-10-05 09:05] LABS: Appearance Urine Clear (Clear); Bilirubin Urine Negative (Negative); Blood Urine 2+ (Negative); Color Urine Light Yellow (Yellow); Glucose Urine UA Negative (Negative); Ketones Urine Negative (Negative); Leukocyte Esterase Ur Negative LEU/UL (Negative); Nitrate Urine Negative (Negative); Protein Urine 3+ mg/dL (Negative); Specific Grav Ur 1.015 (1.001-1.035); Urobilinogen Urine 0.2 mg/dL (<2.0); pH Urine 5.5 (5.0-9.0)
[2022-10-05 09:08] LABS: Bacteria Urine None Seen /hpf; RBC Urine 0-2 /hpf (0-2); Squamous Epithelial Cell Urine None seen /hpf (Few); WBC Urine 0-5 /hpf
[2022-10-05 09:14] LABS: Add Urine Microscopic? YES
[2022-10-05] MEDS: CEFEPIME 2 GM/NS 50 ML 2 GM/50 ML BAG IVPB ×2 (09:15→16:58)
[2022-10-05] MEDS: MIDAZOLAM HCL (*CRX) 2 MG/2 ML VIAL IV PUSH (09:34)
[2022-10-05] MEDS: REMDESIVIR 200 MG/NS 250 ML 200 MG/250 ML BAG 250 MG IVPB (09:39)
[2022-10-05] MEDS: ENOXAPARIN 40 MG/0.4 ML SYRINGE SUB-Q (09:45)
--- NOTE | 2022-10-05 09:45 | WPDPROCEDUR ---
Procedures Intubation Intubation Date: 10/05/22 Intubation Time: 08:30 A pre-procedural Time-Out was completed immediately before starting the procedure and confirmed: Patient Identification, Site, Procedure, Patient Position and the Availability of Requisite Equipment: Yes Sedative: etomidate Paralytic: rocuronium Laryngoscope: fiber optic video scope Assist device used: fiber optic device ET tube size: 8 Tube secured depth (cm): 25 Tube secured location: lips Tube placement confirmation: visualized tube passing through cords, equal breath sounds bilaterally, no breath sounds over epigastrium and confirmation by capnometry Patient tolerated procedure: well Intubation complications: none
[2022-10-05 09:46] LABS: Alveolar/Arterial O2 Gradient 589.3 mmHg; Base Excess ABG 1.2 mEq/l (+/-2.0); Fractional Inspired Oxygen 100 %; HCO3 ABG 25.1 mEq/l (22.0-26.0); Oxygen Content ABG 20.7 %vol (16.0-22.0); Oxygen Saturation ABG 96.9 % (95.0-100.0); Oxyhemoglobin 95.4 % THb (90.0-100.0); PCO2 ABG 37.4 mmHg (35.0-45.0); PO2 ABG 86.3 mmHg (80.0-100.0); PO2 FiO2 Ratio Arterial Blood 0.86 %; Total Hemoglobin 15.4 g/dL (12.0-18.0); pH ABG 7.444 (7.350-7.450)
--- NOTE | 2022-10-05 09:46 | WPDCNINT ---
Assessment and Plan Assessment and plan (1) Acute respiratory failure: Code(s): J96.00 - Acute respiratory failure, unspecified whether with hypoxia or hypercapnia Status: Acute Assessment and Plan: Patient presented on 10/02/2022 with shortness of breath, productive cough, fevers, chills, chest x-ray showed bilateral pneumonia -during the course of his hospital stay a he developed worsening shortness of breath, increasing oxygen requirements, was placed on BiPAP on 10/04/2022. -10/05/2022 a.m. patient was transfer the ICU for hypoxic respiratory failure, tachypnea, increased work of breathing. For which she required intubation. Post intubation patient was hypoxic and dyssynchronous with the ventilator, peep was increased to 12, patient 90% FiO2, sedated with fentanyl and Versed infusion, neuromuscular blockade with Nimbex -patient is positive for SARS-CoV-2 PCR -post intubation ABGs much improved -continue bronchodilators -had pulmicort -maintain RASS of 0 to -1 (2) Pneumonia: Code(s): J18.9 - Pneumonia, unspecified organism Status: Acute Assessment and Plan: Bilateral middle and lower lung opacities -antibiotics were switched to vancomycin, cefepime and azithromycin (10/05) -will obtain sputum cultures (3) COVID-19: Code(s): U07.1 - COVID-19 Status: Acute Assessment and Plan: Patient was tested positive for SARS-CoV-2 PCR on 10/02/2022. According the records he has not received any COVID vaccine -patient has been started a dexamethasone and remdesivir -added baricitinib -continue antibiotics as above -continue airborne and contact isolation and precautions -. LDH and CRP are elevated, will continue to trend (4) Severe sepsis: Code(s): A41.9 - Sepsis, unspecified organism; R65.20 - Severe sepsis without septic shock Status: Acute Assessment and Plan: Patient with fevers, leukocytosis, pneumonia, hypoxia -check lactic acid -continue antibiotics as above -10/02/2022 blood cultures, preliminary results are negative x2 -10/05/2022: Urine cultures are pending -10/05/2022 blood cultures have been obtained -10/05/2022 MRSA screen is pending -10/05/2022 sputum cultures are pending -check lactic acid -Blood pressures have been have been stable, will maintain MAP > 65 mmHg is at all times for adequate end organ perfusion -10/05: PICC line is in place (5) Acute kidney injury superimposed on CKD: Code(s): N17.9 - Acute kidney failure, unspecified; N18.9 - Chronic kidney disease, unspecified Status: Acute Assessment and Plan: Patient presented with acute kidney injury, has a history of chronic kidney disease stage 3 -creatinine on admission was 1.6 -patient was given adequate amount of fluids, creatinine is down to 09 on 10/05 -patient is off all IV fluids -continue monitor urine output, renal function electrolytes (6) Transaminitis: Code(s): R74.01 - Elevation of levels of liver transaminase levels Status: Acute Assessment and Plan: Patient with elevated LFTs could be related to hypoxia -continue to monitor -10/03: hepatitis panel is negative -will obtain RUQ ultrasound (7) Type 2 diabetes mellitus with hyperglycemia: Qualifiers: 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 Code Status: Do not resuscitate Critical Care Time Spent: 59 minutes Discussed with patient's niece was the power of corporate associate attorney, BISHOP and her in the conference room. Updated them with patient's condition and plan of care. I explained to them the sequence
[2022-10-05 09:48] LABS: Device VENTILATOR; Modified Allen's Test Pass; Site Drawn RIGHT RADIAL
[2022-10-05 09:49] LABS: Arterial Blood Gas PEEP 12 cmH2O; Arterial Blood Gas Vent Mode CMV; Arterial Blood Gas Ventilator rate 26 /MIN
[2022-10-05 09:50] LABS: Arterial Blood Gas Tidal Volume 450 ml
[2022-10-05] MEDS: CISATRACURIUM BESYLATE 200 MG in DEXTROSE 5% 80 ML 7.72 ML IV CONT (10:04)
[2022-10-05 10:48] LABS: Basophils Percent Auto 0.1 % (0.2-1.2); Hematocrit 42.7 % (42.0-52.0); Hemoglobin 14.3 g/dL (14.0-18.0); Immature Granulocyte Absolute 0.29 K/mm3 (0.00-0.031); Immature Granulocyte Percent A 1.9 % (0-0.5); Lymphocytes Absolute Auto 0.34 K/mm3 (0.9-3.2); Lymphocytes Percent Auto 2.3 % (18.3-44.2); Mean Corpuscular HGB Conc 33.5 g/dl (32-36); Mean Corpuscular Volume 95.5 fl (80-100); Mean Platelet Volume 9.7 fl (7.4-10.4); Monocytes Absolute Auto 0.6 K/mm3 (0.1-0.6); Monocytes Percent Auto 3.7 % (2.6-8.5); Neutrophils Absolute Auto 13.8 K/mm3 (1.3-6.7); Platelet Count Result 266 k/mm3 (150-375); Red Blood Count 4.47 M/mm3 (4.6-6.20); Red Cell Distribution Width 13.2 % (11.5-14.5)
[2022-10-05 11:01] LABS: Alanine Aminotransferase 136 U/L (6-50); Aspartate Amino Transferase 204 U/L (17-59); Estimated CRCL calculation 62 ml/min; Estimated Glomerular Filt Rate > 60
[2022-10-05] MEDS: PANTOPRAZOLE SODIUM IV 40 MG VIAL IV PUSH (11:20)
[2022-10-05] MEDS: BARICITINIB 2 MG TABLET 4 MG PO (11:20)
[2022-10-05] MEDS: EZETIMIBE 10 MG TABLET PO (11:21)
[2022-10-05] MEDS: ATORVASTATIN 40 MG TABLET 80 MG PO (11:21)
[2022-10-05] MEDS: ASPIRIN 81 MG ENTERIC TABLET PO (11:22)
--- NOTE | 2022-10-05 11:43 | PM.IMPN ---
Progress Note: A&P Assessment and Plan (1) Acute respiratory failure: Code(s): J96.00 - Acute respiratory failure, unspecified whether with hypoxia or hypercapnia Status: Acute Assessment and Plan: Patient is now intubated. Likely related from COVID. Possible bacterial pneumonia. (2) Pneumonia: Code(s): J18.9 - Pneumonia, unspecified organism Status: Acute Assessment and Plan: Continue antibiotics. Continue treatment for COVID (3) Acute kidney injury superimposed on CKD: Code(s): N17.9 - Acute kidney failure, unspecified; N18.9 - Chronic kidney disease, unspecified Status: Acute Assessment and Plan: Creatinine 0.9 (4) Sepsis: Code(s): A41.9 - Sepsis, unspecified organism Status: Acute Assessment and Plan: Continue supportive care in the ICU. 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 Pupils are equal and reactive, sclera is clear, ETT in place Neck:? Supple Respiratory:? Coarse breath sounds bilaterally, decreased at bases, no wheezing, Cardiac:? sinus tachycardia, Abdomen:? soft, non tender, non distended, hypoactive bowel sounds Extremities:? no edema, palpable pedal pulses Neuro:? intubated, sedated, on Nimbex. does not open eyes or follow commands. prior to intubation he was awake, followed commands and nodded to questions on BIAP Skin:? no lesions noted Psych:? unable to assess at this time Objective Data Vital Signs Vital Signs: Vital Signs - 24 hr 10/04/22 12:00 10/04/22 12:30 10/04/22 12:45 Temperature Pulse Rate 86 Respiratory Rate Blood Pressure Pulse Oximetry 93 93 Oxygen Delivery Room Air Oxygen Flow Rate Fraction of Inspired Oxygen 10/04/22 13:13 10/04/22 14:09 10/04/22 14:15 Temperature 99.1 F Pulse Rate 87 Respiratory Rate 20 Blood Pressure 114/70 Pulse Oximetry 91 92 93 Oxygen Delivery Nasal Cannula Nasal Cannula Oxygen Flow Rate 2 4 Fraction of Inspired Oxygen 10/04/22 14:24 10/04/22 14:28 10/04/22 16:00 Temperature Pulse Rate 83 83 81 Respiratory Rate 18 18 Blood Pressure Pulse Oximetry 94 Oxygen Delivery Nasal Cannula Oxygen Flow Rate 4 Fraction of Inspired Oxygen 36 10/04/22 17:01 10/04/22 18:30 10/04/22 20:30 Temperature Pulse Rate 98 Respiratory Rate Blood Pressure Pulse Oximetry 93 93 Oxygen Delivery Oxygen Flow Rate Fraction of Inspired Oxygen 10/04/22 20:15 10/04/22 20:00 10/04/22 21:14 Temperature 98.4 F Pulse Rate 108 H Respiratory Rate 25 H Blood Pressure 124/87 Pulse Oximetry 93 93 92 Oxygen Delivery Nasal Cannula Nasal Cannula Oxygen Flow Rate 4 4 Fraction of Inspired Oxygen 10/04/22 21:38 10/04/22 22:56 10/04/22 22:30 Temperature 102.7 F H 100.5 F H 100.9 F H Pulse Rate Respiratory Rate Blood Pressure Pulse Oximetry Oxygen Delivery Oxygen Flow Rate Fraction of Inspired Oxygen 10/04/22 23:30 10/05/22 00:11 10/04/22 20:00 Temperature 100.8 F H 100.6 F H Pulse Rate 101 H Respiratory Rate Blood Pressure Pulse Oximetry Oxygen Delivery Oxygen Flow Rate Fraction of Inspired Oxygen 10/05/22 00:00 10/05/22 00:30 09/14
[2022-10-05] MEDS: INSULIN ASPART (*BKC) 100 UNITS/ML SUB-Q ×2 (11:49→17:18)
[2022-10-05 12:21] LABS: Glucose Point of Care 254 mg/dl (65-105)
[2022-10-05 13:02] LABS: Lactic Acid Reflex 1.3 mmol/L (0.7-2.0)
[2022-10-05] MEDS: CENTRAL LINE FLUSH 10 ML IV PUSH ×2 (13:02→20:07)
[2022-10-05] MEDS: BUDESONIDE RESPULE NEB 0.5 MG/2 ML AMP INHALATION ×2 (13:35→20:42)
[2022-10-05] MEDS: NOREPINEPHRINE 8 MG/D5W 250 ML 8 MG/250 ML BAG 9.38 MG IV CONT (14:01)
[2022-10-05 17:28] LABS: Glucose Point of Care 345 mg/dl (65-105)
--- NOTE | 2022-10-05 18:52 | PC.NURSE ---
Cooling blanket removed at 1615. Patient normothermic with a core temperature of 98.9 degrees Fahrenheit.
[2022-10-05] MEDS: CISATRACURIUM BESYLATE 200 MG in DEXTROSE 5% 80 ML 5.15 ML IV CONT (22:06)
[2022-10-06] VITALS (41 sets, daily range): BP systolic 91–137; BP diastolic 70–91; PULSE 63–110; RESP 24–56; TEMP 35.8–40.6; O2SAT 92–97; BMI 29.6
--- NOTE | 2022-10-06 | ECHO_ITS ---
Patient Info Name: Gume Ellis Age: 71 years : 1950 Gender: Male Ht: 67 in Wt: 189 lbs BSA: 2.04 m2 HR: 93 bpm BP: 137 / 82 mmHg Heart Rhythm: Sinus Rhythm Technical Quality: Poor Exam Date: 10/06/2022 1:54 PM Exam Location: [facility] Patient Status: Inpatient Admit Date: 10/02/2022 Staff Ordering Physician: Willa Nguyễn DO Hub Borer: Louisa Euceda RDCS Attending Provider: Willa Nguyễn DO Referring Physician: Gopi THOMPSON; Exam Type: CA echo dop color flow w con Study Info Indications - respiratory distress R01.1 - Cardiac murmur, unspecified Complete two-dimensional, color flow and Doppler transthoracic echocardiogram is performed with contrast to opacify the left ventricle and to improve the deliniation of the left ventricle endocardial borders. Contrast/Agitated Saline Contrast/Ag. Saline: Definity Amount: 3.00 ml Administered By: Louisa Euceda RDCS Existing IV Access: Yes IV Access Condition: patent with no signs of infiltration Summary 1. Very technically difficult study with limited views. 2. Left ventricular chamber dimension is normal. 3. Cannot accurately estimate left ventricular ejection fraction due to poor quality study, even with Definity administration. 4. Right ventricular chamber dimension is normal. 5. Right ventricular systolic function is reduced. 6. There is trace mitral valve regurgitation. 7. There is trace tricuspid valve regurgitation. Left Ventricle Cannot accurately estimate left ventricular ejection fraction due to poor quality study, even with Definity administration. Left ventricular chamber dimension is normal. The left ventricular diastolic function is grade I diastolic dysfunction. Right Ventricle Right ventricular chamber dimension is normal. Right ventricular systolic function is reduced. Left Atria Left atrial chamber dimension is normal. Right Atria Right atrial chamber dimension is normal. Atrial Septum Intact interatrial septum visualized by color flow imaging. Aortic Valve Bioprosthetic aortic valve is not well seen. Pulmonic Valve The pulmonic valve is not well visualized. Mitral Valve There is trace mitral valve regurgitation. Tricuspid Valve There is trace tricuspid valve regurgitation. Pericardium/Pleural There is no pericardial effusion. Inferior Vena Cava Normal inferior vena cava with no collapse upon inspiration consistent with elevated right atrial pressure, 8 mmHg. Aorta The aortic root size at the sinus of Valsalva is not well visualized. Left Ventricular Outflow Tract Name Value Normal LVOT Doppler LVOT Peak Gradient 3 mmHg LVOT Mean Gradient 2 mmHg LVOT VTI 16.93 cm LVOT VTI/AV VTI Ratio 0.96 Pulmonic Valve Name Value Normal RVOT Doppler RVOT Peak Gradient
[2022-10-06] MEDS: CEFEPIME 2 GM/NS 50 ML 2 GM/50 ML BAG IVPB ×3 (00:02→16:48)
[2022-10-06] MEDS: NOREPINEPHRINE 8 MG/D5W 250 ML 8 MG/250 ML BAG 24.38 MG IV CONT (00:11)
[2022-10-06] MEDS: INSULIN HUMAN REGULAR (*BKC) 100 UNITS/ML 10 UNITS SUB-Q (00:19)
[2022-10-06 00:31] LABS: Glucose Point of Care 469 mg/dl (65-105)
[2022-10-06 00:31] LABS: Glucose Point of Care 474 mg/dl (65-105)
[2022-10-06] MEDS: MIDAZOLAM 100MG/NS 100ML(*CRX) 100 MG/100 ML BAG IV CONT (01:31)
[2022-10-06] MEDS: FENTANYL 2,500MCG/NS250ML(*CRX 2,500 MCG/250 ML BAG 15 MCG IV CONT ×2 (01:33→18:39)
[2022-10-06 01:38] LABS: Glucose Point of Care 438 mg/dl (65-105)
[2022-10-06] MEDS: LEVALBUTEROL NEB 1.25 MG/3 ML INHALATION ×4 (02:55→19:51)
[2022-10-06 05:12] LABS: Glucose Point of Care 367 mg/dl (65-105)
[2022-10-06 05:16] LABS: Basophils Percent Auto 0.2 % (0.2-1.2); Eosinophils Absolute Auto 0.1 K/mm3 (0-0.3); Eosinophils Percent Auto 0.3 % (0-4.4); Hematocrit 38.5 % (42.0-52.0); Hemoglobin 13.3 g/dL (14.0-18.0); Immature Granulocyte Absolute 0.25 K/mm3 (0.00-0.031); Immature Granulocyte Percent A 1.4 % (0-0.5); Lymphocytes Absolute Auto 0.91 K/mm3 (0.9-3.2); Mean Corpuscular HGB Conc 34.5 g/dl (32-36); Mean Corpuscular Hemoglobin 32.1 pg (26-34); Mean Platelet Volume 9.4 fl (7.4-10.4); Monocytes Absolute Auto 0.9 K/mm3 (0.1-0.6); Monocytes Percent Auto 4.7 % (2.6-8.5); Neutrophils Absolute Auto 16.1 K/mm3 (1.3-6.7); Neutrophils Percent Auto 88.4 % (45.5-73.1); Platelet Count Result 275 k/mm3 (150-375); Red Blood Count 4.14 M/mm3 (4.6-6.20); Red Cell Distribution Width 13.2 % (11.5-14.5); White Blood Count 18.2 K/mm3 (4.5-10.0)
[2022-10-06 05:24] LABS: Lactic Acid Reflex 1.2 mmol/L (0.7-2.0)
[2022-10-06 05:28] LABS: Alanine Aminotransferase 98 U/L (6-50); Albumin Level 3.5 g/dL (3.5-5.1); Alkaline Phosphatase 72 U/L (38-126); Anion Gap 8 mmol/L (8-16); Aspartate Amino Transferase 87 U/L (17-59); Bilirubin,Total 0.9 mg/dL (0.2-1.3); Blood Urea Nitrogen 31 mg/dL (9-20); CRP 8.1 mg/dL (<1.0); Calcium 7.5 mg/dL (8.4-10.2); Carbon Dioxide 27 mmol/L (22-30); Chloride 94 mmol/L (98-107); Estimated CRCL calculation 51 ml/min; Estimated Glomerular Filt Rate > 60; Glucose 455 mg/dL (65-110); INR 1.2; Magnesium 2.5 mg/dL (1.6-2.3); Phosphorus 3.5 mg/dL (2.5-4.5); Potassium 3.1 mmol/L (3.4-5.0); Prothrombin Time 14.5 Seconds (11.1-14.7); Sodium 129 mmol/L (137-145)
[2022-10-06] MEDS: INSULIN ASPART (*BKC) 100 UNITS/ML SUB-Q ×4 (05:55→20:30)
[2022-10-06] MEDS: CENTRAL LINE FLUSH 10 ML IV PUSH ×3 (05:56→22:29)
[2022-10-06 06:23] LABS: Alveolar/Arterial O2 Gradient 430.5 mmHg; Base Excess ABG -0.5 mEq/l (+/-2.0); Carboxyhemoglobin 0.3 % THb (0-2.0); Fractional Inspired Oxygen 80 %; HCO3 ABG 25.1 mEq/l (22.0-26.0); Methemoglobin ABG 0.3 %THb (0-1.5); Oxygen Content ABG 19.6 %vol (16.0-22.0); Oxygen Saturation ABG 96.9 % (95.0-100.0); Oxyhemoglobin 95.7 % THb (90.0-100.0); PCO2 ABG 44.6 mmHg (35.0-45.0); PO2 ABG 93.1 mmHg (80.0-100.0); PO2 FiO2 Ratio Arterial Blood 1.16 %; Reduced Hemoglobin 3.7 %THb (0-5.0); Total Hemoglobin 14.5 g/dL (12.0-18.0); pH ABG 7.368 (7.350-7.450)
[2022-10-06 06:24] LABS: Arterial Blood Gas PEEP 12 cmH2O; Arterial Blood Gas Vent Mode CMV; Arterial Blood Gas Ventilator rate 26 /MIN; Device VENTILATOR; Modified Allen's Test Pass; Site Drawn RIGHT RADIAL
[2022-10-06 06:25] LABS: Arterial Blood Gas Tidal Volume 450 ml
[2022-10-06] MEDS: BUDESONIDE RESPULE NEB 0.5 MG/2 ML AMP INHALATION ×2 (08:27→19:51)
[2022-10-06] MEDS: KCL 40 MEQ/WATER 100 ML 100 ML 25 ML IVPB (08:37)
[2022-10-06] MEDS: CALCIUM GLUC 2,000 MG/NS 100ML 2,000 MG/100 ML BAG 100 MG IVPB (08:37)
[2022-10-06] MEDS: MINERAL OIL/WHITE PETROLATUM OINTMENT 1 APPLIC EACH EYE ×2 (08:38→20:31)
[2022-10-06] MEDS: ASPIRIN 81 MG ENTERIC TABLET PO (08:38)
[2022-10-06] MEDS: ATORVASTATIN 40 MG TABLET 80 MG PO (08:38)
[2022-10-06] MEDS: PANTOPRAZOLE SODIUM IV 40 MG VIAL IV PUSH ×2 (08:38→20:31)
[2022-10-06] MEDS: EZETIMIBE 10 MG TABLET PO (08:39)
[2022-10-06] MEDS: INSULIN GLARGINE (*BKC) 100 UNITS/ML 30 UNITS SUB-Q (10:00)
[2022-10-06] MEDS: REMDESIVIR 100 MG/NS 250 ML 100 MG/250 ML BAG 250 MG IVPB (10:12)
--- NOTE | 2022-10-06 11:37 | PM.IMPN ---
Progress Note: A&P Assessment and Plan (1) Acute respiratory failure: Code(s): J96.00 - Acute respiratory failure, unspecified whether with hypoxia or hypercapnia Status: Acute Assessment and Plan: Patient is now intubated. Manage per ICU Likely related from COVID. Possible bacterial pneumonia. Continue treatment for COVID and antibiotics. (2) Pneumonia: Code(s): J18.9 - Pneumonia, unspecified organism Status: Acute Assessment and Plan: Continue antibiotics. Continue treatment for COVID (3) Acute kidney injury superimposed on CKD: Code(s): N17.9 - Acute kidney failure, unspecified; N18.9 - Chronic kidney disease, unspecified Status: Acute Assessment and Plan: Creatinine 0.9 (4) Sepsis: Code(s): A41.9 - Sepsis, unspecified organism Status: Acute Assessment and Plan: Continue supportive care in the ICU. 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 Pupils are equal and reactive, sclera is clear, ETT in place Neck:? Supple Respiratory:? Coarse breath sounds bilaterally, decreased at bases, no wheezing, Cardiac:? sinus tachycardia, Abdomen:? soft, non tender, non distended, hypoactive bowel sounds Extremities:? no edema, palpable pedal pulses Neuro:? intubated, sedated, on Nimbex. does not open eyes or follow commands. prior to intubation he was awake, followed commands and nodded to questions on BIAP Skin:? no lesions noted Psych:? unable to assess at this time Objective Data Vital Signs Vital Signs: Vital Signs - 24 hr 10/05/22 12:00 10/05/22 12:00 10/05/22 12:00 Temperature 104.9 F H Pulse Rate 98 98 Respiratory Rate 26 H 26 H Blood Pressure 97/78 L 97/78 L Pulse Oximetry 92 Oxygen Delivery Fraction of Inspired Oxygen 100 10/05/22 12:00 10/05/22 12:00 10/05/22 11:45 Temperature 105.1 F H Pulse Rate 100 97 Respiratory Rate 26 H 26 H Blood Pressure Pulse Oximetry Oxygen Delivery Fraction of Inspired Oxygen 10/05/22 12:44 10/05/22 13:00 10/05/22 12:00 Temperature 104.5 F H Pulse Rate 95 Respiratory Rate 26 H Blood Pressure 100/75 Pulse Oximetry 92 Oxygen Delivery Mechanical Ventilation Fraction of Inspired Oxygen 90 10/05/22 14:00 10/05/22 14:01 10/05/22 13:40 Temperature 103.3 F H Pulse Rate 86 93 Respiratory Rate Blood Pressure 79/65 L Pulse Oximetry 94 Oxygen Delivery Mechanical Ventilation Fraction of Inspired Oxygen 90 10/05/22 13:40 10/05/22 13:50 10/05/22 13:44 Temperature 103.3 F H Pulse Rate 93 87 Respiratory Rate 26 H 26 H Blood Pressure Pulse Oximetry Oxygen Delivery Fraction of Inspired Oxygen 10/05/22 14:00 10/05/22 14:00 10/05/22 14:00 Temperature Pulse Rate 85 85 85 Respiratory Rate 26 H 26 H 26 H Blood Pressure 79/65 L Pulse Oximetry Oxygen Delivery Fraction of Inspired Oxygen 10/05/22 14:30 10/05/22 14:38 10/05/22 14:46 Temperature 101.7 F H Pulse Rate 85 85 Respiratory Rate Blood Pressure 83/68 L 96/71 L Pulse Oximetry 95 Oxygen Delivery Fraction of Inspired Oxygen 10/05/22 12:00 10/05/22 14:00 10/05/22 16:08 Temperature Pulse Rate 98 87 74 Respiratory Rate Blood Pressure Pulse Oximetry 95 Oxygen Delivery Mechanical Ventilation Fraction of Inspired Oxygen 90 10/05/22 15:
[2022-10-06] MEDS: BARICITINIB 2 MG TABLET 4 MG PO (11:52)
[2022-10-06 12:06] LABS: Glucose Point of Care 283 mg/dl (65-105)
--- NOTE | 2022-10-06 14:14 | WPDINTPN ---
Progress Note: A&P Assessment and Plan (1) Acute respiratory failure: Code(s): J96.00 - Acute respiratory failure, unspecified whether with hypoxia or hypercapnia Status: Acute Assessment and Plan: Patient presented on 10/02/2022 with shortness of breath, productive cough, fevers, chills, chest x-ray showed bilateral pneumonia -during the course of his hospital stay a he developed worsening shortness of breath, increasing oxygen requirements, was placed on BiPAP on 10/04/2022. -10/05/2022 a.m. patient was transfer the ICU for hypoxic respiratory failure, tachypnea, increased work of breathing. For which she required intubation. Post intubation patient was hypoxic and dyssynchronous with the ventilator, peep was increased to 12, patient 90% FiO2, sedated with fentanyl and Versed infusion, neuromuscular blockade with Nimbex -patient is positive for SARS-CoV-2 PCR -chest x-ray and ABGs reviewed -continue bronchodilators -continue Pulmicort -continue fentanyl and Versed infusion maintain RASS of 0 to -1, neuromuscular blockade with Nimbex (2) Pneumonia: Code(s): J18.9 - Pneumonia, unspecified organism Status: Acute Assessment and Plan: Bilateral middle and lower lung opacities -continue vancomycin, cefepime and azithromycin (10/05) -sputum cultures have been ordered (3) Septic shock: Code(s): A41.9 - Sepsis, unspecified organism; R65.21 - Severe sepsis with septic shock Status: Acute Assessment and Plan: Patient with fevers, leukocytosis, pneumonia, hypoxia -check lactic acid -continue antibiotics as above -10/02/2022 blood cultures, preliminary results are negative x2 -10/05/2022: Urine cultures are pending -10/05/2022 blood cultures: Preliminary report is negative x2 -10/05/2022 MRSA screen : No MRSA isolated -10/05/2022 sputum cultures are pending -lactic acid of normal -10/05: PICC line is in place -patient was started on Levophed for hypotension post intubation, could be related to positive pressure ventilation, infection, pneumonia, COVID. Will maintain MAP > 65 mm Hg for adequate end organ perfusion (4) COVID-19: Code(s): U07.1 - COVID-19 Status: Acute Assessment and Plan: Patient was tested positive for SARS-CoV-2 PCR on 10/02/2022. According the records he has not received any COVID vaccine -patient has been started a dexamethasone and remdesivir -continue baricitinib -continue antibiotics as above -continue airborne and contact isolation and precautions - LDH and CRP are elevated, will continue to trend (5) Acute kidney injury superimposed on CKD: Code(s): N17.9 - Acute kidney failure, unspecified; N18.9 - Chronic kidney disease, unspecified Status: Acute Assessment and Plan: Patient presented with acute kidney injury, has a history of chronic kidney disease stage 3 -creatinine on admission was 1.6 -patient was given adequate amount of fluids, creatinine is down to normal -patient is off all IV fluids -continue monitor urine output, renal function electrolytes (6) Transaminitis: Code(s): R74.01 - Elevation of levels of liver transaminase levels Status: Acute Assessment and Plan: Patient with elevated LFTs could be related to hypoxia -continue to monitor -10/03: hepatitis panel is negative 10/05 RUQ ultrasound: No sonographic evidence of patient's symptoms -LFTs trending down (7) Type 2 diabetes mellitus with hyperglycemia: Qualifiers: Diabetes mellitus senior living 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
[2022-10-06] MEDS: PERFLUTREN LIPID MICROSPHERES 1.5 ML VIAL DILUTED TO 10 ML TOTAL VOLUME IV PUSH (14:24)
--- NOTE | 2022-10-06 14:25 | IVDEFINITY ---
Prior to administration of IV Definity the patient was educated on the risks and benefits of the imaging enhancing agent including potential adverse side effects. The patient verbalized understanding. Allergies were verified. No exclusion criteria were identified and at least one of the following inclusion criteria were met: 1) physician request, 2) patient technically difficult to image (per the [place] [employer] guidelines of two or more segments not discernable within the apical view), or 3) questionable left ventricular function. ?
[2022-10-06 14:26] LABS: Vancomycin Trough 12.2 ug/mL (10.0-20.0)
--- NOTE | 2022-10-06 14:41 | WPDGICN ---
Assessment and Plan Assessment and plan (1) Coffee ground emesis: Code(s): K92.0 - Hematemesis Status: Acute Assessment and Plan: probably from esophagitis/gastritis stable h/h recommend for now medical treatment with iv protonix bid unless drop in h/h or more bleeding continue enteral tube feeding (2) Severe sepsis: Code(s): A41.9 - Sepsis, unspecified organism; R65.20 - Severe sepsis without septic shock Status: Acute Assessment and Plan: icu management (3) COVID-19: Code(s): U07.1 - COVID-19 Status: Acute Assessment and Plan: he was intubated (4) Pneumonia: Code(s): J18.9 - Pneumonia, unspecified organism Status: Acute (5) Acute respiratory failure: Code(s): J96.00 - Acute respiratory failure, unspecified whether with hypoxia or hypercapnia Status: Acute Assessment and Plan: intubated (6) Type 2 diabetes mellitus with hyperglycemia, without long-term current use of insulin: Code(s): E11.65 - Type 2 diabetes mellitus with hyperglycemia Status: Acute GI Consult Note Consult date/time: 10/06/22 14:41 Reason for consult: coffee ground emesis HPI: Gume Ellis is a 71 year old male with history of HTN, Aortic stenosis s/p bioprosthetic AVR x2 , CHF, CKD III, DM, gout presented to the ER on 10/03/2022? with worsening SOB, fever and productive cough for several days. He is currently intubated and history obtained from records. He was found to have COVID and currently intubated. RN noted small amount of coffee ground material in OGT but hb stable 13.3 (started on tube feeding). Review of Systems Review of Systems: ROS unobtainable: Yes unobtainable due to endotracheal tube and unobtainable due to mental status PMFSH Past Medical History Medical History (Updated 10/06/22 @ 14:46 by Aditya Christian MD) Aortic stenosis Status post aortic valve replacement x2 CHF (congestive heart failure), NYHA class II Managed by Dr. Romero: Echocardiogram 07/10/2021: Suboptimal image quality contrast used. Hyperdynamic left ventricle with EF of greater than 70%, impaired diastolic relaxation grade 1, aortic valve velocity 2.5 m/sec mean gradient 14 valve area 2.02 centimeters squared with normal appearing bioprosthetic inspiris 23 mm valve with normal valve gradients RVSP is normal at 31 Chronic renal insufficiency, stage III (moderate) Coffee ground emesis Diabetes Gout Hypercholesterolemia Hypertension Incarcerated ventral hernia Situational depression Surgical History Surgical History (Updated 10/03/22 @ 04:14 by Willa Nguyễn DO) H/O aortic valve replacement with porcine valve H/O ventral hernia repair History of aortic valve replacement with bioprosthetic valve Patient initially had a porcine aortic valve replacement then had a bioprosthetic aortic valve replacement. 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 Code status: Full code Surrogate decision maker: Ana Cristina Schofield (niece) Smoking status: Never smoker Second hand tobacco smoke exposure: No Alcohol intake: never Substance use: never Substance use type: does not use Lack of Transportation: No Lack of Food: Never True Current Housing: I Have Housing Concerned About Future Housing: No Difficulty Paying Gas/Electric Bills: No Difficulty Paying for Meds: No Currently Unemployed: No Education: Grade School Difficulty w/ Childcare or Family Care: No Living arrangements: alone Occupation/Education
[2022-10-06] MEDS: CISATRACURIUM BESYLATE 200 MG in DEXTROSE 5% 80 ML 7.72 ML IV CONT (15:28)
[2022-10-06 17:49] LABS: Glucose Point of Care 317 mg/dl (65-105)
[2022-10-06 20:48] LABS: Glucose Point of Care 394 mg/dl (65-105)
[2022-10-07] VITALS (45 sets, daily range): BP systolic 104–116; BP diastolic 65–84; PULSE 63–86; RESP 23–28; TEMP 36.1–37.2; O2SAT 87–98
[2022-10-07] MEDS: INSULIN ASPART (*BKC) 100 UNITS/ML SUB-Q ×6 (00:02→21:29)
[2022-10-07] MEDS: MIDAZOLAM 100MG/NS 100ML(*CRX) 100 MG/100 ML BAG IV CONT (00:04)
[2022-10-07 00:10] LABS: Glucose Point of Care 364 mg/dl (65-105)
[2022-10-07] MEDS: LEVALBUTEROL NEB 1.25 MG/3 ML INHALATION ×4 (02:31→21:09)
[2022-10-07 04:31] LABS: Basophils Percent Auto 0.1 % (0.2-1.2); Hematocrit 35.1 % (42.0-52.0); Hemoglobin 12.1 g/dL (14.0-18.0); Immature Granulocyte Percent A 0.8 % (0-0.5); Lymphocytes Absolute Auto 0.59 K/mm3 (0.9-3.2); Lymphocytes Percent Auto 4.5 % (18.3-44.2); Mean Corpuscular HGB Conc 34.5 g/dl (32-36); Mean Corpuscular Hemoglobin 32.3 pg (26-34); Mean Corpuscular Volume 93.6 fl (80-100); Mean Platelet Volume 9.7 fl (7.4-10.4); Monocytes Absolute Auto 0.6 K/mm3 (0.1-0.6); Monocytes Percent Auto 4.6 % (2.6-8.5); Neutrophils Absolute Auto 11.7 K/mm3 (1.3-6.7); Platelet Count Result 272 k/mm3 (150-375); Red Blood Count 3.75 M/mm3 (4.6-6.20); Red Cell Distribution Width 13.2 % (11.5-14.5)
[2022-10-07] MEDS: CISATRACURIUM BESYLATE 200 MG in DEXTROSE 5% 80 ML 6.44 ML IV CONT (04:34)
[2022-10-07] MEDS: NOREPINEPHRINE 8 MG/D5W 250 ML 8 MG/250 ML BAG 5.63 MG IV CONT (04:36)
[2022-10-07 04:40] LABS: Glucose Point of Care 396 mg/dl (65-105)
[2022-10-07 04:40] LABS: Glucose Point of Care > 500 mg/dl (65-105)
[2022-10-07 04:43] LABS: INR 1.3; Prothrombin Time 15.6 Seconds (11.1-14.7)
[2022-10-07 04:44] LABS: Lactic Acid Reflex 1.9 mmol/L (0.7-2.0)
[2022-10-07 04:53] LABS: Alanine Aminotransferase 78 U/L (6-50); Alkaline Phosphatase 63 U/L (38-126); Anion Gap 6 mmol/L (8-16); Aspartate Amino Transferase 62 U/L (17-59); Bilirubin,Total 0.6 mg/dL (0.2-1.3); Blood Urea Nitrogen 36 mg/dL (9-20); CRP 8.7 mg/dL (<1.0); Carbon Dioxide 26 mmol/L (22-30); Chloride 97 mmol/L (98-107); Estimated CRCL calculation 51 ml/min; Estimated Glomerular Filt Rate > 60; Glucose 383 mg/dL (65-110); Magnesium 2.8 mg/dL (1.6-2.3); Phosphorus 3.2 mg/dL (2.5-4.5); Potassium 3.5 mmol/L (3.4-5.0); Sodium 129 mmol/L (137-145)
[2022-10-07 05:06] LABS: Alveolar/Arterial O2 Gradient 381.1 mmHg; Base Excess ABG -3.7 mEq/l (+/-2.0); Carboxyhemoglobin 0.2 % THb (0-2.0); Fractional Inspired Oxygen 70 %; HCO3 ABG 20.9 mEq/l (22.0-26.0); Methemoglobin ABG 0.2 %THb (0-1.5); Oxygen Content ABG 17.3 %vol (16.0-22.0); Oxygen Saturation ABG 95.4 % (95.0-100.0); Oxyhemoglobin 93.8 % THb (90.0-100.0); PCO2 ABG 36.8 mmHg (35.0-45.0); PO2 ABG 78.4 mmHg (80.0-100.0); PO2 FiO2 Ratio Arterial Blood 1.12 %; Reduced Hemoglobin 5.8 %THb (0-5.0); Total Hemoglobin 13.1 g/dL (12.0-18.0); pH ABG 7.373 (7.350-7.450)
[2022-10-07 05:07] LABS: Arterial Blood Gas Vent Mode CMV; Arterial Blood Gas Ventilator rate 26 /MIN; Device VENTILATOR; Modified Allen's Test Pass; Site Drawn RIGHT RADIAL
[2022-10-07 05:08] LABS: Arterial Blood Gas PEEP 12 cmH2O; Arterial Blood Gas Tidal Volume 450 ml
[2022-10-07] MEDS: CENTRAL LINE FLUSH 10 ML IV PUSH ×3 (05:30→21:32)
[2022-10-07] MEDS: CEFEPIME 2 GM/NS 50 ML 2 GM/50 ML BAG IVPB ×3 (08:56→16:08)
[2022-10-07] MEDS: MINERAL OIL/WHITE PETROLATUM OINTMENT 1 APPLIC EACH EYE ×2 (08:57→21:31)
[2022-10-07] MEDS: EZETIMIBE 10 MG TABLET PO (08:57)
[2022-10-07] MEDS: ATORVASTATIN 40 MG TABLET 80 MG PO (08:57)
[2022-10-07] MEDS: PANTOPRAZOLE SODIUM IV 40 MG VIAL IV PUSH ×2 (08:58→21:32)
[2022-10-07] MEDS: POTASSIUM CHLORIDE 20 MEQ PACKET (FOR LIQUID) 40 MEQ FEED TUBE (08:58)
[2022-10-07] MEDS: BUDESONIDE RESPULE NEB 0.5 MG/2 ML AMP INHALATION ×2 (08:59→21:09)
[2022-10-07] MEDS: ASPIRIN 81 MG ENTERIC TABLET PO (08:59)
[2022-10-07] MEDS: INSULIN GLARGINE (*BKC) 100 UNITS/ML 60 UNITS SUB-Q (09:04)
[2022-10-07 09:41] LABS: Glucose Point of Care 280 mg/dl (65-105)
[2022-10-07] MEDS: REMDESIVIR 100 MG/NS 250 ML 100 MG/250 ML BAG 250 MG IVPB (11:00)
--- NOTE | 2022-10-07 11:00 | PM.IMPN ---
Progress Note: A&P Assessment and Plan (1) Acute respiratory failure: Code(s): J96.00 - Acute respiratory failure, unspecified whether with hypoxia or hypercapnia Status: Acute Assessment and Plan: Patient is now intubated. Manage per ICU Likely related from COVID. Possible bacterial pneumonia. Continue treatment for COVID and antibiotics. (2) Pneumonia: Code(s): J18.9 - Pneumonia, unspecified organism Status: Acute Assessment and Plan: Continue antibiotics. Continue treatment for COVID (3) Acute kidney injury superimposed on CKD: Code(s): N17.9 - Acute kidney failure, unspecified; N18.9 - Chronic kidney disease, unspecified Status: Acute Assessment and Plan: Creatinine 0.9 (4) Sepsis: Code(s): A41.9 - Sepsis, unspecified organism Status: Acute Assessment and Plan: Continue supportive care in the ICU. 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 Pupils are equal and reactive, sclera is clear, ETT in place Neck:? Supple Respiratory:? Coarse breath sounds bilaterally, decreased at bases, no wheezing, Cardiac:? sinus tachycardia, Abdomen:? soft, non tender, non distended, hypoactive bowel sounds Extremities:? no edema, palpable pedal pulses Neuro:? intubated, sedated, on Nimbex. does not open eyes or follow commands. prior to intubation he was awake, followed commands and nodded to questions on BIAP Skin:? no lesions noted Psych:? unable to assess at this time Objective Data Vital Signs Vital Signs: Vital Signs - 24 hr 10/06/22 11:18 10/06/22 12:00 10/06/22 12:00 Temperature 100.7 F H Pulse Rate 96 96 Respiratory Rate 26 H Blood Pressure 117/83 Pulse Oximetry 95 94 Oxygen Delivery Mechanical Ventilation Fraction of Inspired Oxygen 75 75 10/06/22 12:00 10/06/22 12:00 10/06/22 12:00 Temperature Pulse Rate 96 96 96 Respiratory Rate 26 H 26 H Blood Pressure 117/83 117/83 Pulse Oximetry Oxygen Delivery Fraction of Inspired Oxygen 10/06/22 12:00 10/06/22 13:00 10/06/22 14:00 Temperature Pulse Rate 96 87 84 Respiratory Rate 26 H 26 H 26 H Blood Pressure 96/76 L 131/82 Pulse Oximetry Oxygen Delivery Fraction of Inspired Oxygen 10/06/22 15:00 10/06/22 15:28 10/06/22 15:28 Temperature Pulse Rate 81 80 80 Respiratory Rate 26 H 26 H 26 H Blood Pressure 95/73 L 92/73 L 92/73 L Pulse Oximetry Oxygen Delivery Fraction of Inspired Oxygen 10/06/22 14:00 10/06/22 15:30 10/06/22 14:00 Temperature Pulse Rate 84 80 84 Respiratory Rate 26 H Blood Pressure 131/82 91/70 L Pulse Oximetry Oxygen Delivery Fraction of Inspired Oxygen 10/06/22 14:00 10/06/22 15:37 10/06/22 15:37 Temperature Pulse Rate 84 77 76 Respiratory Rate 26 H 26 H Blood Pressure Pulse Oximetry 96 Oxygen Delivery Mechanical Ventilation Fraction of Inspired Oxygen 70 10/06/22 14:00 10/06/22 16:00 10/06/22 16:00 Temperature 100.3 F H 99.7 F H Pulse Rate 84 80 Respiratory Rate 26 H 26 H Blood Pressure 131/82 109/74 Pulse Oximetry 95 94 Oxygen Delivery Fraction of Inspired Oxygen 75 10/06/22 16:00 10/06/22 16:50 10/06/22 16:00 Temperature Pulse Rate 80 77 80 Respiratory Rate 26 H 26 H Blood Pressure 109/74 106/77 Pulse Oximetry Oxygen Delivery Fraction of Inspired Oxyge
[2022-10-07] MEDS: BARICITINIB 2 MG TABLET 4 MG PO (11:13)
[2022-10-07 11:35] LABS: Glucose Point of Care 343 mg/dl (65-105)
--- NOTE | 2022-10-07 12:07 | PCNFU ---
Nutrition Follow-Up Complete: Altered GI function related to sepsis as evidenced by pressors, mechanical ventilation, need for trophic tube feeding Goal: Meet estimated nutrition needs Patient is progressing towards goal. We will continue current goal. Pt current nutrition is Vital AF 1.2 at 10 ml/hr. Last recorded weight is 85.8 kg. Bowel Motility:+BM reported 10/04 Labs Reviewed: Mg 2.8,BUN 36, Na 129, Alb 3.0, Glu 383 Meds Noted:Fentanyl, Versed, Levophed, Decadron, Lantus, NovoLog, Protonix, Remdesivir. Skin: WNL Additional Notes:Patient remains on mechanical vent, COVID positive. Tube feeding of Vital AF 1.2 at 10 ml/hr is being tolerating. Plans to advance tube feedings today. Recommend goal rate at 70 ml/hr which will provide 1848 kcals/115 gm protein/1249 ml water. Flush 30 ml q 4 hours. Tube feeding meeting 86% caloric needs at 25 kcal/kg. Agree with diet orders. Monitoring daily in ICU rounds and reassessing every Thursday and Thursday.
--- NOTE | 2022-10-07 12:24 | WPDINTPN ---
Progress Note: A&P Assessment and Plan (1) Acute respiratory failure: Code(s): J96.00 - Acute respiratory failure, unspecified whether with hypoxia or hypercapnia Status: Acute Assessment and Plan: Patient presented on 10/02/2022 with shortness of breath, productive cough, fevers, chills, chest x-ray showed bilateral pneumonia -during the course of his hospital stay a he developed worsening shortness of breath, increasing oxygen requirements, was placed on BiPAP on 10/04/2022. -10/05/2022 a.m. patient was transfer the ICU for hypoxic respiratory failure, tachypnea, increased work of breathing. For which he required intubation. Post intubation patient was hypoxic and dyssynchronous with the ventilator. - On CMV mode, low Vt strategy, PEEP 12,FiO2 70%. Will decrease PEEP to 10. FiO2 to maintain O2 sats > 92% -patient is positive for SARS-CoV-2 PCR -chest x-ray this morning: Stable airspace opacities in the mid and lower lung zones, consistent with pneumonia. -continue bronchodilators -continue Pulmicort -continue fentanyl and Versed infusion maintain RASS of 0 to -1, neuromuscular blockade with Nimbex. 10/07: Have asked the bedside RN to wean Nimbex to off (2) Pneumonia: Code(s): J18.9 - Pneumonia, unspecified organism Status: Acute Assessment and Plan: Bilateral middle and lower lung opacities -continue vancomycin, cefepime and azithromycin (10/05) -sputum cultures have been ordered (3) Septic shock: Code(s): A41.9 - Sepsis, unspecified organism; R65.21 - Severe sepsis with septic shock Status: Acute Assessment and Plan: Patient with fevers, leukocytosis, pneumonia, hypoxia -check lactic acid -continue antibiotics as above -10/02/2022 blood cultures, preliminary results are negative x2 -10/05/2022: Urine cultures - -10/05/2022 blood cultures: Preliminary report is negative x2 -10/05/2022 MRSA screen : No MRSA isolated -10/05/2022 sputum cultures are pending -lactic acid of normal -leukocytosis improving -10/05: PICC line is in place -patient was started on Levophed for hypotension post intubation, could be related to positive pressure ventilation, infection, pneumonia, COVID. Will maintain MAP > 65 mm Hg for adequate end organ perfusion (4) COVID-19: Code(s): U07.1 - COVID-19 Status: Acute Assessment and Plan: Patient was tested positive for SARS-CoV-2 PCR on 10/02/2022. According the records he has not received any COVID vaccine -patient has been started a dexamethasone and remdesivir -continue baricitinib -continue antibiotics as above -continue airborne and contact isolation and precautions - LDH and CRP are elevated, will continue to trend (5) Acute kidney injury superimposed on CKD: Code(s): N17.9 - Acute kidney failure, unspecified; N18.9 - Chronic kidney disease, unspecified Status: Acute Assessment and Plan: Patient presented with acute kidney injury, has a history of chronic kidney disease stage 3 -creatinine on admission was 1.6 -patient was given adequate amount of fluids, creatinine is down to normal -patient is off all IV fluids -continue monitor urine output, renal function electrolytes (6) Transaminitis: Code(s): R74.01 - Elevation of levels of liver transaminase levels Status: Acute Assessment and Plan: Patient with elevated LFTs could be related to hypoxia and/or hypotension -continue to monitor -10/03: hepatitis panel is negative 10/05 RUQ ultrasound: No sonographic evidence of patient's symptoms -LFTs trending down (7) Type 2 diabetes mellitus with hyperglycemia: Qualifiers: Diabetes mellitus half-way insulin use: without half-way use Qualified Code(s): E11.65 - Type 2 diabetes mellitus with hyperglycemia Code(s): E11.65 - Type 2 diabetes mellitus with hyperglycemia Status: Acute Assessment and Plan: Hyperglycemia, will continue Accu-Cheks and high does slidi
[2022-10-07] MEDS: FENTANYL 2,500MCG/NS250ML(*CRX 2,500 MCG/250 ML BAG 15 MCG IV CONT (12:35)
--- NOTE | 2022-10-07 14:15 | WPDGIPROGNO ---
Progress Note: A&P Assessment and Plan (1) Coffee ground emesis: Code(s): K92.0 - Hematemesis Status: Acute Assessment and Plan: h/h stable probably esophagitis/gastritis iv protonix continue conservative treatment, if more obvious bleeding then egd (2) COVID-19: Code(s): U07.1 - COVID-19 Status: Acute Assessment and Plan: by icu team (3) Severe sepsis: Code(s): A41.9 - Sepsis, unspecified organism; R65.20 - Severe sepsis without septic shock Status: Acute (4) Acute respiratory failure: Code(s): J96.00 - Acute respiratory failure, unspecified whether with hypoxia or hypercapnia Status: Acute Assessment and Plan: intubated Subjective Date/time seen: 10/07/22 14:15 Interval history: 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 Pupils are equal and reactive, sclera is clear, ETT in place. OGT with only minimal ground material, he is getting tube feeding. Neck:? Supple Respiratory:? Coarse breath sounds bilaterally, decreased at bases, no wheezing, Cardiac:? sinus tachycardia, Abdomen:? soft, non tender, non distended, hypoactive bowel sounds Extremities:? no edema, palpable pedal pulses Neuro:? intubated, sedated. Skin:? no lesions noted Psych:? unable to assess at this time Objective Data Vital Signs Vital Signs: Vital Signs - 24 hr 10/06/22 15:00 10/06/22 15:28 10/06/22 15:28 Temperature Pulse Rate 81 80 80 Respiratory Rate 26 H 26 H 26 H Blood Pressure 95/73 L 92/73 L 92/73 L Pulse Oximetry Oxygen Delivery Fraction of Inspired Oxygen 10/06/22 15:30 10/06/22 15:37 10/06/22 15:37 Temperature Pulse Rate 80 77 76 Respiratory Rate 26 H Blood Pressure 91/70 L Pulse Oximetry 96 Oxygen Delivery Mechanical Ventilation Fraction of Inspired Oxygen 70 10/06/22 16:00 10/06/22 16:00 10/06/22 16:00 Temperature 99.7 F H Pulse Rate 80 80 Respiratory Rate 26 H 26 H Blood Pressure 109/74 109/74 Pulse Oximetry 94 Oxygen Delivery Fraction of Inspired Oxygen 75 10/06/22 16:50 10/06/22 16:00 10/06/22 16:00 Temperature Pulse Rate 77 80 80 Respiratory Rate 26 H 26 H Blood Pressure 106/77 Pulse Oximetry Oxygen Delivery Fraction of Inspired Oxygen 10/06/22 16:00 10/06/22 17:00 10/06/22 17:34 Temperature Pulse Rate 78 76 Respiratory Rate 26 H Blood Pressure 115/77 Pulse Oximetry 94 93 Oxygen Delivery Mechanical Ventilation Mechanical Ventilation Fraction of Inspired Oxygen 70 70 10/06/22 18:00 10/06/22 18:30 10/06/22 18:00 Temperature 98.6 F Pulse Rate 73 73 70 Respiratory Rate 26 H 26 H Blood Pressure 109/74 109/74 Pulse Oximetry 95 Oxygen Delivery Fraction of Inspired Oxygen 10/06/22 18:39 10/06/22 18:39 10/06/22 18:00 Temperature Pulse Rate 73 73 70 Respiratory Rate 26 H 26 H 26 H Blood Pressure 106/76 Pulse Oximetry Oxygen Delivery Fraction of Inspired Oxygen 10/06/22 16:00 10/06/22 18:00 10/06/22 19:00 Temperature Pulse Rate 80 74 76 Respiratory Rate 26 H Blood Pressure 106/75 Pulse Oximetry Oxygen Delivery Fraction of Inspired Oxygen 10/06/22 19:51 10/06/22 19:52 10/06/22 20:00 Temperature Pulse Rate 75 74 Respiratory Rate 26 H Blood Pressure Pulse Oximetry 93 Oxygen Delivery Mechanical Ventilation Fraction of Inspired Oxygen 70 70 10/06/22 20:00 10/06/22 20:00 10/06/22 20:53 Temperature 98 F Pulse Rate 76 80 76 Respiratory Rate 26 H 26 H Blood Pressure 101/71 Pulse Oximetry 92 Oxygen Delivery Fraction of Inspired Oxygen 10/06/22 22:00 10/06/22 22:00 10/06/22 22:44 Temperature Pulse Rate 68 68 69 Respiratory Rate 26 H Bl
[2022-10-07 16:17] LABS: Glucose Point of Care 357 mg/dl (65-105)
[2022-10-07] MEDS: INSULIN GLARGINE (*BKC) 100 UNITS/ML 20 UNITS SUB-Q (21:30)
[2022-10-07] MEDS: INSULIN HUMAN REGULAR (*BKC) 100 UNITS/ML 10 UNITS IV PUSH (21:30)
[2022-10-07] MEDS: MIDAZOLAM 100MG/NS 100ML(*CRX) 100 MG/100 ML BAG 6 MG IV CONT (21:35)
[2022-10-08] VITALS (37 sets, daily range): BP systolic 90–116; BP diastolic 58–79; PULSE 60–90; RESP 14–30; TEMP 36.4–37.3; O2SAT 90–99
[2022-10-08] MEDS: CEFEPIME 2 GM/NS 50 ML 2 GM/50 ML BAG IVPB ×4 (00:14→23:53)
[2022-10-08] MEDS: INSULIN ASPART (*BKC) 100 UNITS/ML SUB-Q ×7 (00:15→23:55)
[2022-10-08 00:32] LABS: Glucose Point of Care 312 mg/dl (65-105)
[2022-10-08 00:32] LABS: Glucose Point of Care 301 mg/dl (65-105)
[2022-10-08 02:28] LABS: Vancomycin Trough 23.2 ug/mL (10.0-20.0)
[2022-10-08] MEDS: LEVALBUTEROL NEB 1.25 MG/3 ML INHALATION ×4 (03:10→20:49)
[2022-10-08] MEDS: FENTANYL 2,500MCG/NS250ML(*CRX 2,500 MCG/250 ML BAG 17.5 MCG IV CONT ×2 (03:10→19:08)
[2022-10-08 04:58] LABS: INR 1.2; Prothrombin Time 14.7 Seconds (11.1-14.7)
[2022-10-08 04:59] LABS: Alanine Aminotransferase 66 U/L (6-50); Alkaline Phosphatase 58 U/L (38-126); Anion Gap 6 mmol/L (8-16); Aspartate Amino Transferase 46 U/L (17-59); Bilirubin,Total 0.5 mg/dL (0.2-1.3); Blood Urea Nitrogen 40 mg/dL (9-20); CRP 5.9 mg/dL (<1.0); Calcium 8.3 mg/dL (8.4-10.2); Carbon Dioxide 27 mmol/L (22-30); Chloride 100 mmol/L (98-107); Estimated CRCL calculation 47 ml/min; Estimated Glomerular Filt Rate 60; Glucose 299 mg/dL (65-110); Magnesium 2.7 mg/dL (1.6-2.3); Phosphorus 3.7 mg/dL (2.5-4.5); Potassium 4.7 mmol/L (3.4-5.0); Sodium 133 mmol/L (137-145)
[2022-10-08 05:00] LABS: Lactic Acid Reflex 1.4 mmol/L (0.7-2.0)
[2022-10-08 05:38] LABS: Basophils Percent Auto 0.1 % (0.2-1.2); Hematocrit 33.9 % (42.0-52.0); Hemoglobin 11.2 g/dL (14.0-18.0); Immature Granulocyte Absolute 0.13 K/mm3 (0.00-0.031); Immature Granulocyte Percent A 0.8 % (0-0.5); Lymphocytes Absolute Auto 0.57 K/mm3 (0.9-3.2); Lymphocytes Percent Auto 3.7 % (18.3-44.2); Mean Corpuscular Hemoglobin 31.6 pg (26-34); Mean Corpuscular Volume 95.8 fl (80-100); Monocytes Absolute Auto 0.9 K/mm3 (0.1-0.6); Neutrophils Absolute Auto 13.8 K/mm3 (1.3-6.7); Neutrophils Percent Auto 89.4 % (45.5-73.1); Platelet Count Result 322 k/mm3 (150-375); Red Blood Count 3.54 M/mm3 (4.6-6.20); Red Cell Distribution Width 13.2 % (11.5-14.5); White Blood Count 15.5 K/mm3 (4.5-10.0)
[2022-10-08] MEDS: CENTRAL LINE FLUSH 10 ML IV PUSH ×3 (06:20→22:21)
[2022-10-08 06:34] LABS: pH ABG 7.341 (7.350-7.450)
[2022-10-08 06:35] LABS: Base Excess ABG -0.9 mEq/l (+/-2.0); PO2 ABG 56.1 mmHg (80.0-100.0)
[2022-10-08 06:36] LABS: Oxygen Saturation ABG 87.3 % (95.0-100.0)
[2022-10-08 06:38] LABS: Alveolar/Arterial O2 Gradient 318.9 mmHg; Fractional Inspired Oxygen 60 %; PO2 FiO2 Ratio Arterial Blood 0.94 %; Site Drawn RIGHT RADIAL
[2022-10-08 06:39] LABS: Device VENTILATOR; HCO3 ABG 25.4 mEq/l (22.0-26.0); Modified Allen's Test Pass
[2022-10-08 06:41] LABS: Arterial Blood Gas PEEP 10 cmH2O; Arterial Blood Gas Tidal Volume 450 ml; Arterial Blood Gas Vent Mode CMV; Arterial Blood Gas Ventilator rate 26 /MIN
[2022-10-08 07:19] LABS: Glucose Point of Care 244 mg/dl (65-105)
[2022-10-08] MEDS: BUDESONIDE RESPULE NEB 0.5 MG/2 ML AMP INHALATION ×2 (08:43→20:49)
[2022-10-08] MEDS: ATORVASTATIN 40 MG TABLET 80 MG PO (08:57)
[2022-10-08] MEDS: ASPIRIN 81 MG ENTERIC TABLET PO (08:57)
[2022-10-08] MEDS: INSULIN GLARGINE (*BKC) 100 UNITS/ML 60 UNITS SUB-Q ×2 (08:58→20:25)
[2022-10-08] MEDS: MINERAL OIL/WHITE PETROLATUM OINTMENT 1 APPLIC EACH EYE ×2 (08:58→20:24)
[2022-10-08] MEDS: PANTOPRAZOLE SODIUM IV 40 MG VIAL IV PUSH ×2 (08:58→20:25)
[2022-10-08] MEDS: EZETIMIBE 10 MG TABLET PO (08:59)
--- NOTE | 2022-10-08 11:17 | PCFNICU ---
ICU Rounding Note: Pt current nutrition is Vital AF 1.2 at 50 ml/hr Last recorded weight is 85.8 kg. Bowel Motility:+Bm reported 10/04 Labs Reviewed:Mg 2.7,Glu 299, BUN 40, Na 133, Alb 3.0 Meds Noted:Lantus, NovoLog, Reglan, Fentanyl, Versed Skin: WNL Additional Notes: Patient remains on tube feedings of Vital AF 1.2 at 50 ml/hr with plans to advance to goal rate today of 70 ml/hr. Tube feedings goal rate providing 1848 kcals/115 gm protein/1249 ml water. Flush 30 ml q 4 hours. Agree with diet orders. Following daily in ICU rounds and reassessing every Thursday and Thursday.
[2022-10-08] MEDS: REMDESIVIR 100 MG/NS 250 ML 100 MG/250 ML BAG 250 MG IVPB (11:55)
[2022-10-08 12:33] LABS: Glucose Point of Care 340 mg/dl (65-105)
[2022-10-08 12:59] LABS: Glucose Point of Care 282 mg/dl (65-105)
--- NOTE | 2022-10-08 13:10 | WPDGIPROGNO ---
Progress Note: A&P Assessment and Plan (1) Coffee ground emesis: Code(s): K92.0 - Hematemesis Status: Acute Assessment and Plan: probably esophagitis/gastritis iv protonix continue conservative treatment, if more obvious bleeding then egd h/h relatively stable will follow from [place], call if questions (2) COVID-19: Code(s): U07.1 - COVID-19 Status: Acute Assessment and Plan: by icu team (3) Severe sepsis: Code(s): A41.9 - Sepsis, unspecified organism; R65.20 - Severe sepsis without septic shock Status: Acute Assessment and Plan: treated (4) Acute respiratory failure: Code(s): J96.00 - Acute respiratory failure, unspecified whether with hypoxia or hypercapnia Status: Acute Assessment and Plan: intubated Subjective Date/time seen: 10/08/22 13:10 Interval history: no report of coffee ground material, intubated, tolerating tube feeding. Review of Systems Review of Systems: All systems reviewed & are unremarkable except as noted in HPI and below Exam Narrative: General: intubated and sedated, in no distress HEENT:? Pupils are equal and reactive, sclera is clear, ETT in place. OGT with tube feeding. Neck:? Supple Respiratory:? Coarse breath sounds bilaterally, decreased at bases, no wheezing, Cardiac:? normal rate, Abdomen:? soft, non tender, non distended, hypoactive bowel sounds Extremities:? no edema, palpable pedal pulses Neuro:? intubated, sedated. Skin:? no lesions noted Psych:? unable to assess at this time Objective Data Vital Signs Vital Signs: Vital Signs - 24 hr 10/07/22 14:00 10/07/22 14:12 10/07/22 14:00 Temperature 98.2 F Pulse Rate 73 Respiratory Rate 28 H 28 H 23 H Blood Pressure 104/74 Pulse Oximetry 88 L 92 90 Oxygen Delivery Mechanical Ventilation Mechanical Ventilation Fraction of Inspired Oxygen 65 80 10/07/22 14:00 10/07/22 14:00 10/07/22 14:00 Temperature Pulse Rate 73 73 73 Respiratory Rate 26 H 26 H Blood Pressure 104/74 Pulse Oximetry Oxygen Delivery Fraction of Inspired Oxygen 10/07/22 14:05 10/07/22 14:12 10/07/22 14:22 Temperature Pulse Rate Respiratory Rate 28 H 28 H Blood Pressure Pulse Oximetry 87 L 88 L 98 Oxygen Delivery Mechanical Ventilation Mechanical Ventilation Mechanical Ventilation Fraction of Inspired Oxygen 70 80 75 10/07/22 14:29 10/07/22 14:30 10/07/22 15:16 Temperature Pulse Rate 75 77 76 Respiratory Rate 28 H 28 H Blood Pressure Pulse Oximetry 94 Oxygen Delivery Mechanical Ventilation Fraction of Inspired Oxygen 70 10/07/22 15:16 10/07/22 16:01 10/07/22 16:00 Temperature 97.6 F Pulse Rate 74 74 73 Respiratory Rate 26 H 26 H 26 H Blood Pressure 111/73 Pulse Oximetry 94 Oxygen Delivery Fraction of Inspired Oxygen 10/07/22 15:45 10/07/22 17:20 10/07/22 16:00 Temperature Pulse Rate 72 Respiratory Rate Blood Pressure 107/65 Pulse Oximetry 95 95 Oxygen Delivery Mechanical Ventilation Mechanical Ventilation Fraction of Inspired Oxygen 65 70 10/07/22 16:00 10/07/22 16:00 10/07/22 16:00 Temperature Pulse Rate 75 75 Respiratory Rate 26 H 26 H Blood Pressure Pulse Oximetry Oxygen Delivery Fraction of Inspired Oxygen 70 10/07/22 17:55 10/07/22 17:45 10/07/22 14:00 Temperature Pulse Rate 70 70 74 Respiratory Rate 26 H Blood Pressure 109/68 109/68 Pulse Oximetry Oxygen Delivery Fraction of Inspired Oxygen 10/07/22 18:00 10/07/22 16:00 10/07/22 18:00 Temperature 97.6 F Pulse Rate 72 76 69 Respiratory Rate 26 H Blood Pressure 111/69 Pulse Oximetry 94 Oxygen Delivery Fraction of Inspired Oxygen 10/07/22 21:10 10/07/22 21:11 10/07/22 21:25 Temperature Pulse Rate 65 63 66 Respiratory Rate 26 H 26 H Blood Pressure Pulse Oximetry 93 Oxygen Delivery Mechanical Ventilation Fraction
--- NOTE | 2022-10-08 13:15 | WPDINTPN ---
Progress Note: A&P Assessment and Plan (1) Acute respiratory failure: Code(s): J96.00 - Acute respiratory failure, unspecified whether with hypoxia or hypercapnia Status: Acute Assessment and Plan: Patient presented on 10/02/2022 with shortness of breath, productive cough, fevers, chills, chest x-ray showed bilateral pneumonia -during the course of his hospital stay a he developed worsening shortness of breath, increasing oxygen requirements, was placed on BiPAP on 10/04/2022. -10/05/2022 a.m. patient was transfer the ICU for hypoxic respiratory failure, tachypnea, increased work of breathing. For which he required intubation. Post intubation patient was hypoxic and dyssynchronous with the ventilator. -currently on CMV mode of ventilation, low tidal volume strategy, PEEP 10,FiO2 70%. Will decrease PEEP to 10. - Wean FiO2 to maintain O2 sats > 92% -patient is positive for SARS-CoV-2 PCR -chest x-ray this morning:Worsened airspace opacities in the mid and lower lung zones, consistent with pneumonia. Small left pleural effusion.. -continue bronchodilators -continue Pulmicort -continue fentanyl and Versed infusion maintain RASS of 0 to -1, 10/07: Discontinued Nimbex (2) Pneumonia: Code(s): J18.9 - Pneumonia, unspecified organism Status: Acute Assessment and Plan: Bilateral middle and lower lung opacities -continue vancomycin, cefepime and azithromycin (10/05) -sputum cultures have been ordered (3) Septic shock: Code(s): A41.9 - Sepsis, unspecified organism; R65.21 - Severe sepsis with septic shock Status: Acute Assessment and Plan: Patient with fevers, leukocytosis, pneumonia, hypoxia -check lactic acid -continue antibiotics as above -10/02/2022 blood cultures, preliminary results are negative x2 -10/05/2022: Urine cultures - no growth -10/05/2022 blood cultures: Preliminary report is negative x2 -10/05/2022 MRSA screen : No MRSA isolated -10/05/2022 sputum cultures are pending -lactic acid of normal -10/05: PICC line is in place -patient off Levophed, continue to maintain MAP > 65 mm Hg for adequate end organ perfusion (4) COVID-19: Code(s): U07.1 - COVID-19 Status: Acute Assessment and Plan: Patient was tested positive for SARS-CoV-2 PCR on 10/02/2022. According the records he has not received any COVID vaccine -continue dexamethasone and remdesivir -continue baricitinib -continue antibiotics as above -continue airborne and contact isolation and precautions -CRP trending down (5) Acute kidney injury superimposed on CKD: Code(s): N17.9 - Acute kidney failure, unspecified; N18.9 - Chronic kidney disease, unspecified Status: Acute Assessment and Plan: Patient presented with acute kidney injury, has a history of chronic kidney disease stage 3 -creatinine on admission was 1.6 -patient was given adequate amount of fluids, creatinine is down to normal -patient is off all IV fluids -continue monitor urine output, renal function electrolytes (6) Transaminitis: Code(s): R74.01 - Elevation of levels of liver transaminase levels Status: Acute Assessment and Plan: Patient with elevated LFTs could be related to hypoxia and/or hypotension -continue to monitor -10/03: hepatitis panel is negative 10/05 RUQ ultrasound: No sonographic evidence of patient's symptoms -LFTs trending down (7) Type 2 diabetes mellitus with hyperglycemia: 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
[2022-10-08] MEDS: BARICITINIB 2 MG TABLET 4 MG PO (13:50)
[2022-10-08] MEDS: METOCLOPRAMIDE HCL INJ 10 MG/2 ML VIAL IV PUSH (13:50)
[2022-10-08 16:32] LABS: Glucose Point of Care 335 mg/dl (65-105)
[2022-10-08] MEDS: MIDAZOLAM 100MG/NS 100ML(*CRX) 100 MG/100 ML BAG 6 MG IV CONT (17:09)
[2022-10-08 21:56] LABS: Glucose Point of Care 334 mg/dl (65-105)
[2022-10-09] VITALS (32 sets, daily range): BP systolic 94–129; BP diastolic 57–79; PULSE 54–75; RESP 15–31; TEMP 36.7–37.4; O2SAT 89–96
[2022-10-09 00:06] LABS: Glucose Point of Care 255 mg/dl (65-105)
[2022-10-09] MEDS: LEVALBUTEROL NEB 1.25 MG/3 ML INHALATION ×4 (03:37→20:35)
[2022-10-09] MEDS: INSULIN ASPART (*BKC) 100 UNITS/ML SUB-Q ×5 (04:45→20:55)
[2022-10-09 05:09] LABS: Glucose Point of Care 287 mg/dl (65-105)
[2022-10-09 05:20] LABS: Alveolar/Arterial O2 Gradient 427.9 mmHg; Base Excess ABG -0.3 mEq/l (+/-2.0); Carboxyhemoglobin 0.3 % THb (0-2.0); Fractional Inspired Oxygen 75 %; HCO3 ABG 25.1 mEq/l (22.0-26.0); Methemoglobin ABG 0.3 %THb (0-1.5); Oxygen Saturation ABG 90.5 % (95.0-100.0); Oxyhemoglobin 89.5 % THb (90.0-100.0); PCO2 ABG 43.8 mmHg (35.0-45.0); PO2 ABG 60.3 mmHg (80.0-100.0); Reduced Hemoglobin 9.9 %THb (0-5.0); Total Hemoglobin 15.1 g/dL (12.0-18.0); pH ABG 7.376 (7.350-7.450)
[2022-10-09 05:20] LABS: Hematocrit 31.3 % (42.0-52.0); Hemoglobin 10.2 g/dL (14.0-18.0); Mean Corpuscular HGB Conc 32.6 g/dl (32-36); Mean Corpuscular Hemoglobin 31.3 pg (26-34); Mean Platelet Volume 9.9 fl (7.4-10.4); Platelet Count Result 283 k/mm3 (150-375); Red Blood Count 3.26 M/mm3 (4.6-6.20); Red Cell Distribution Width 13.3 % (11.5-14.5); White Blood Count 12.6 K/mm3 (4.5-10.0)
[2022-10-09 05:21] LABS: Modified Allen's Test Pass; Site Drawn RIGHT RADIAL
[2022-10-09 05:22] LABS: Arterial Blood Gas PEEP 10 cmH2O; Arterial Blood Gas Tidal Volume 450 ml; Arterial Blood Gas Vent Mode CMV; Arterial Blood Gas Ventilator rate 26 /MIN; Device VENTILATOR
[2022-10-09] MEDS: CENTRAL LINE FLUSH 10 ML IV PUSH ×3 (05:23→20:56)
[2022-10-09 05:32] LABS: INR 1.3; Prothrombin Time 15.3 Seconds (11.1-14.7)
[2022-10-09 05:42] LABS: Alanine Aminotransferase 65 U/L (6-50); Albumin Level 2.6 g/dL (3.5-5.1); Alkaline Phosphatase 60 U/L (38-126); Anion Gap 1 mmol/L (8-16); Aspartate Amino Transferase 58 U/L (17-59); Bilirubin,Total 0.5 mg/dL (0.2-1.3); Blood Urea Nitrogen 45 mg/dL (9-20); CRP 4.3 mg/dL (<1.0); Calcium 7.7 mg/dL (8.4-10.2); Carbon Dioxide 29 mmol/L (22-30); Chloride 102 mmol/L (98-107); Estimated CRCL calculation 56 ml/min; Estimated Glomerular Filt Rate > 60; Glucose 265 mg/dL (65-110); Magnesium 2.7 mg/dL (1.6-2.3); Phosphorus 2.9 mg/dL (2.5-4.5); Potassium 4.9 mmol/L (3.4-5.0); Sodium 132 mmol/L (137-145)
[2022-10-09] MEDS: BUDESONIDE RESPULE NEB 0.5 MG/2 ML AMP INHALATION ×2 (07:15→20:40)
[2022-10-09 07:21] LABS: Glucose Point of Care 262 mg/dl (65-105)
[2022-10-09 07:46] LABS: Band Neutrophils Percent 15 % (0-6); Burr Cells 2+ (NORMAL); Lymphocytes Absolute Manual 0.25 K/mm3 (1.1-4.5); Metamyelocytes Percent 1 %; Monocytes Absolute Manual 0.12 K/mm3 (0.1-0.90); Monocytes Percent Manual 1 % (3-9); Neutrophils Absolute Manual 12.09 K/mm3 (1.3-6.7); Neutrophils Percent Manual 81 % (46-73); Total Cells Counted 100
[2022-10-09 07:47] LABS: Giant Platelets Present; Platelet Estimate Adequate (Adequate); Schistocytes None Seen (NORMAL)
[2022-10-09] MEDS: ALTEPLASE 2 MG VIAL (CATHFLO) IV PUSH (08:40)
[2022-10-09] MEDS: MINERAL OIL/WHITE PETROLATUM OINTMENT 1 APPLIC EACH EYE ×2 (08:43→20:56)
[2022-10-09] MEDS: PANTOPRAZOLE SODIUM IV 40 MG VIAL IV PUSH ×2 (08:45→20:56)
[2022-10-09] MEDS: INSULIN GLARGINE (*BKC) 100 UNITS/ML 60 UNITS SUB-Q (08:47)
[2022-10-09] MEDS: CEFEPIME 2 GM/NS 50 ML 2 GM/50 ML BAG IVPB ×3 (08:53→23:51)
[2022-10-09] MEDS: ATORVASTATIN 40 MG TABLET 80 MG PO (09:01)
[2022-10-09] MEDS: ASPIRIN 81 MG ENTERIC TABLET PO (09:01)
[2022-10-09] MEDS: EZETIMIBE 10 MG TABLET PO (09:03)
[2022-10-09] MEDS: MIDAZOLAM 100MG/NS 100ML(*CRX) 100 MG/100 ML BAG 7 MG IV CONT ×2 (10:00→23:50)
[2022-10-09] MEDS: FENTANYL 2,500MCG/NS250ML(*CRX 2,500 MCG/250 ML BAG 20 MCG IV CONT (10:00)
[2022-10-09] MEDS: REMDESIVIR 100 MG/NS 250 ML 100 MG/250 ML BAG 250 MG IVPB (10:42)
--- NOTE | 2022-10-09 10:58 | WPDINTPN ---
Progress Note: A&P Assessment and Plan (1) Acute respiratory failure: Code(s): J96.00 - Acute respiratory failure, unspecified whether with hypoxia or hypercapnia Status: Acute Assessment and Plan: Patient presented on 10/02/2022 with shortness of breath, productive cough, fevers, chills, chest x-ray showed bilateral pneumonia -during the course of his hospital stay a he developed worsening shortness of breath, increasing oxygen requirements, was placed on BiPAP on 10/04/2022. -10/05/2022 a.m. patient was transfer the ICU for hypoxic respiratory failure, tachypnea, increased work of breathing. For which he required intubation. Post intubation patient was hypoxic and dyssynchronous with the ventilator. -currently on CMV mode of ventilation, low tidal volume strategy, PEEP 10,FiO2 75%. -ABG reviewed -chest x-ray reviewed -patient is positive for SARS-CoV-2 PCR -continue bronchodilators -continue Pulmicort -continue fentanyl and Versed infusion maintain RASS of 0 to -1, 10/07: Discontinued Nimbex -will give Lasix IV (2) Pneumonia: Code(s): J18.9 - Pneumonia, unspecified organism Status: Acute Assessment and Plan: Bilateral middle and lower lung opacities -patient was started on vancomycin, cefepime and azithromycin (10/05) - will complete azithromycin today -10/09 MRSA screen is negative and culture negative hence will discontinue vancomycin -sputum cultures have been ordered and is pending (3) Septic shock: Code(s): A41.9 - Sepsis, unspecified organism; R65.21 - Severe sepsis with septic shock Status: Acute Assessment and Plan: Off vasopressors now -continue antibiotics as above -10/02/2022 blood cultures, preliminary results are negative x2 -10/05/2022: Urine cultures - no growth -10/05/2022 blood cultures: Preliminary report is negative x2 -10/05/2022 MRSA screen : No MRSA isolated -10/05/2022 sputum cultures are pending -10/05: PICC line is in place -patient off Levophed, continue to maintain MAP > 65 mm Hg for adequate end organ perfusion (4) COVID-19: Code(s): U07.1 - COVID-19 Status: Acute Assessment and Plan: Patient was tested positive for SARS-CoV-2 PCR on 10/02/2022. According the records he has not received any COVID vaccine -continue dexamethasone and remdesivir -continue baricitinib -continue antibiotics as above -continue airborne and contact isolation and precautions -CRP trending down (5) Acute kidney injury superimposed on CKD: Code(s): N17.9 - Acute kidney failure, unspecified; N18.9 - Chronic kidney disease, unspecified Status: Acute Assessment and Plan: Patient presented with acute kidney injury, has a history of chronic kidney disease stage 3 -creatinine on admission was 1.6 -patient was given adequate amount of fluids, creatinine is down to normal -patient is off all IV fluids -continue monitor urine output, renal function electrolytes (6) Transaminitis: Code(s): R74.01 - Elevation of levels of liver transaminase levels Status: Acute Assessment and Plan: Patient with elevated LFTs could be related to hypoxia and/or hypotension -continue to monitor -10/03: hepatitis panel is negative 10/05 RUQ ultrasound: No sonographic evidence of patient's symptoms -LFTs trending down (7) Type 2 diabetes mellitus with hyperglycemia: 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
--- NOTE | 2022-10-09 11:18 | PCFNICU ---
ICU Rounding Note: Pt current nutrition is Vital AF 1.2 at 70 ml/hr Last recorded weight is 85.8 kg. 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 Labs Reviewed:Glu 265, BUN 45, Na 132, Hct 31.3,Hgb 10.2 Meds Noted:Lantus,NovoLog, Fentanyl, Versed. Skin:WNL Additional Notes: Patient remains on mechanical vent. Tolerating tube feedings of Vital AF 1.2 at 70 ml/hr. Flush 30 ml q 4 hours. Agree with diet orders. Following daily in ICU rounds. Monitoring daily in ICU rounds and reassess every Thursday and Thursday.
[2022-10-09] MEDS: FUROSEMIDE INJ 40 MG/4 ML VIAL 20 MG IV PUSH (11:51)
[2022-10-09] MEDS: BARICITINIB 2 MG TABLET 4 MG PO (11:51)
[2022-10-09 12:06] LABS: Glucose Point of Care 259 mg/dl (65-105)
[2022-10-09 15:30] LABS: Pneumococcal Antigen Urine Not Detected (Not Detected)
[2022-10-09 17:13] LABS: Glucose Point of Care 268 mg/dl (65-105)
--- NOTE | 2022-10-09 19:25 | PC.NURSE ---
No change in plan of care. Family updated via telephone on patient condition. No change in patient sedation level.
[2022-10-09] MEDS: INSULIN GLARGINE (*BKC) 100 UNITS/ML 70 UNITS SUB-Q (20:55)
[2022-10-09 22:21] LABS: Glucose Point of Care 330 mg/dl (65-105)
[2022-10-09] MEDS: FENTANYL 2,500MCG/NS250ML(*CRX 2,500 MCG/250 ML BAG 17.5 MCG IV CONT (22:45)
[2022-10-10] VITALS (33 sets, daily range): BP systolic 92–119; BP diastolic 54–72; PULSE 56–84; RESP 14–31; TEMP 36.6–37.1; O2SAT 89–100
[2022-10-10] MEDS: INSULIN ASPART (*BKC) 100 UNITS/ML SUB-Q ×2 (00:05→05:51)
[2022-10-10 00:13] LABS: Glucose Point of Care 282 mg/dl (65-105)
[2022-10-10] MEDS: LEVALBUTEROL NEB 1.25 MG/3 ML INHALATION ×4 (02:43→20:00)
[2022-10-10 04:37] LABS: Alveolar/Arterial O2 Gradient 498.3 mmHg; Base Excess ABG -0.3 mEq/l (+/-2.0); Carboxyhemoglobin 0.2 % THb (0-2.0); Fractional Inspired Oxygen 85 %; HCO3 ABG 24.7 mEq/l (22.0-26.0); Methemoglobin ABG 0.3 %THb (0-1.5); Oxygen Content ABG 15.7 %vol (16.0-22.0); Oxygen Saturation ABG 92.4 % (95.0-100.0); Oxyhemoglobin 90.4 % THb (90.0-100.0); PCO2 ABG 41.7 mmHg (35.0-45.0); PO2 ABG 64.5 mmHg (80.0-100.0); PO2 FiO2 Ratio Arterial Blood 0.76 %; Reduced Hemoglobin 9.1 %THb (0-5.0); Total Hemoglobin 12.3 g/dL (12.0-18.0)
[2022-10-10 04:39] LABS: Arterial Blood Gas PEEP 10 cmH2O; Arterial Blood Gas Vent Mode CMV; Arterial Blood Gas Ventilator rate 26 /MIN; Device VENTILATOR; Modified Allen's Test Pass; Site Drawn RIGHT RADIAL
[2022-10-10 04:40] LABS: Arterial Blood Gas Tidal Volume 450 ml
[2022-10-10 05:43] LABS: Glucose Point of Care 256 mg/dl (65-105)
[2022-10-10] MEDS: CENTRAL LINE FLUSH 10 ML IV PUSH ×3 (05:51→21:32)
[2022-10-10 06:15] LABS: Basophils Absolute Auto 0.1 K/mm3 (0.0-0.1); Basophils Percent Auto 0.3 % (0.2-1.2); Hematocrit 33.8 % (42.0-52.0); Immature Granulocyte Absolute 0.46 K/mm3 (0.00-0.031); Immature Granulocyte Percent A 3.2 % (0-0.5); Lymphocytes Absolute Auto 0.36 K/mm3 (0.9-3.2); Lymphocytes Percent Auto 2.5 % (18.3-44.2); Mean Corpuscular HGB Conc 32.5 g/dl (32-36); Mean Corpuscular Hemoglobin 31.7 pg (26-34); Mean Corpuscular Volume 97.4 fl (80-100); Mean Platelet Volume 9.7 fl (7.4-10.4); Monocytes Absolute Auto 0.6 K/mm3 (0.1-0.6); Monocytes Percent Auto 4.4 % (2.6-8.5); Neutrophils Absolute Auto 13.1 K/mm3 (1.3-6.7); Neutrophils Percent Auto 89.6 % (45.5-73.1); Platelet Count Result 304 k/mm3 (150-375); Red Blood Count 3.47 M/mm3 (4.6-6.20); Red Cell Distribution Width 13.3 % (11.5-14.5); White Blood Count 14.6 K/mm3 (4.5-10.0)
[2022-10-10 06:33] LABS: Alanine Aminotransferase 100 U/L (6-50); Albumin Level 2.9 g/dL (3.5-5.1); Alkaline Phosphatase 62 U/L (38-126); Anion Gap 3 mmol/L (8-16); Aspartate Amino Transferase 82 U/L (17-59); Bilirubin,Total 0.6 mg/dL (0.2-1.3); Blood Urea Nitrogen 59 mg/dL (9-20); CRP 4.9 mg/dL (<1.0); Calcium 8.1 mg/dL (8.4-10.2); Carbon Dioxide 30 mmol/L (22-30); Chloride 104 mmol/L (98-107); Estimated CRCL calculation 50 ml/min; Estimated Glomerular Filt Rate 54; Glucose 206 mg/dL (65-110); Magnesium 2.9 mg/dL (1.6-2.3); Phosphorus 3.9 mg/dL (2.5-4.5); Potassium 4.6 mmol/L (3.4-5.0); Sodium 137 mmol/L (137-145)
[2022-10-10 07:01] LABS: Burr Cells 2+ (NORMAL); Platelet Clumps Present; Platelet Estimate Adequate (Adequate); Schistocytes None Seen (NORMAL)
--- NOTE | 2022-10-10 08:30 | PC.NURSE ---
Patient successfully proned with immediate improvement in sats noted.
[2022-10-10] MEDS: ROCURONIUM BROMIDE 50 MG/5 ML VIAL IV PUSH (08:32)
[2022-10-10] MEDS: ALBUMIN HUMAN 25% 25 GM/100 ML 100 ML IVPB (08:33)
[2022-10-10] MEDS: FUROSEMIDE INJ 40 MG/4 ML VIAL 20 MG IV PUSH (08:34)
[2022-10-10] MEDS: CEFEPIME 2 GM/NS 50 ML 2 GM/50 ML BAG IVPB ×2 (08:34→21:30)
[2022-10-10 08:35] LABS: Glucose Point of Care 195 mg/dl (65-105)
[2022-10-10] MEDS: ASPIRIN 81 MG ENTERIC TABLET PO (08:35)
[2022-10-10] MEDS: ATORVASTATIN 40 MG TABLET 80 MG PO (08:35)
[2022-10-10] MEDS: ENOXAPARIN 40 MG/0.4 ML SYRINGE SUB-Q (08:35)
[2022-10-10] MEDS: EZETIMIBE 10 MG TABLET PO (08:36)
[2022-10-10] MEDS: PANTOPRAZOLE SODIUM IV 40 MG VIAL IV PUSH ×2 (08:36→21:32)
[2022-10-10] MEDS: BUDESONIDE RESPULE NEB 0.5 MG/2 ML AMP INHALATION ×2 (08:41→20:00)
[2022-10-10] MEDS: IPRATROPIUM BR 0.02% INH SOLN 0.5 MG/2.5 ML VIAL INHALATION ×2 (08:42→20:00)
[2022-10-10] MEDS: INSULIN GLARGINE (*BKC) 100 UNITS/ML 70 UNITS SUB-Q ×2 (08:46→21:30)
[2022-10-10] MEDS: MINERAL OIL/WHITE PETROLATUM OINTMENT 1 APPLIC EACH EYE ×2 (08:47→21:32)
--- NOTE | 2022-10-10 10:49 | WPDINTPN ---
Progress Note: A&P Assessment and Plan (1) Acute respiratory failure: Code(s): J96.00 - Acute respiratory failure, unspecified whether with hypoxia or hypercapnia Status: Acute Assessment and Plan: Secondary to COVID-19 pneumonia patient presented on 10/02/2022 with shortness of breath, productive cough, fevers, chills, chest x-ray showed bilateral pneumonia -during the course of his hospital stay a he developed worsening shortness of breath, increasing oxygen requirements, was placed on BiPAP on 10/04/2022. -10/05/2022 a.m. patient was transfer the ICU for hypoxic respiratory failure, tachypnea, increased work of breathing. For which he required intubation. Post intubation patient was hypoxic and dyssynchronous with the ventilator. -currently on CMV mode of ventilation, low tidal volume strategy, PEEP 10,FiO2 85%. -ABG reviewed -chest x-ray reviewed -continue bronchodilators, Pulmicort -continue fentanyl and Versed infusion maintain RASS of 0 to -1, 10/07: Discontinued Nimbex -increase PEEP to 12, will placed patient in prone position today for prone ventilation, wean FiO2 -rocuronium 50 mg IV x1 (2) Pneumonia: Code(s): J18.9 - Pneumonia, unspecified organism Status: Acute Assessment and Plan: Bilateral middle and lower lung opacities -patient was started on vancomycin, cefepime and azithromycin (10/05) - completed course of azithromycin -10/09 MRSA screen is negative and culture negative vancomycin was discontinue -sputum cultures negative till now (3) Septic shock: Code(s): A41.9 - Sepsis, unspecified organism; R65.21 - Severe sepsis with septic shock Status: Acute Assessment and Plan: Off vasopressors now -continue antibiotics as above -10/02/2022 blood cultures, preliminary results are negative x2 -10/05/2022: Urine cultures - no growth -10/05/2022 blood cultures: Preliminary report is negative x2 -10/05/2022 MRSA screen : No MRSA isolated -10/05/2022 sputum cultures are pending -10/05: PICC line is in place -patient off Levophed, continue to maintain MAP > 65 mm Hg for adequate end organ perfusion (4) COVID-19: Code(s): U07.1 - COVID-19 Status: Acute Assessment and Plan: Patient was tested positive for SARS-CoV-2 PCR on 10/02/2022. According the records he has not received any COVID vaccine -continue dexamethasone -completed course of remdesivir -continue baricitinib -continue antibiotics as above -continue airborne and contact isolation and precautions (5) Acute kidney injury superimposed on CKD: Code(s): N17.9 - Acute kidney failure, unspecified; N18.9 - Chronic kidney disease, unspecified Status: Acute Assessment and Plan: Patient presented with acute kidney injury, has a history of chronic kidney disease stage 3 -creatinine on admission was 1.6 -patient was given adequate amount of fluids, creatinine is down to normal -patient is off all IV fluids -continue monitor urine output, renal function electrolytes (6) Transaminitis: Code(s): R74.01 - Elevation of levels of liver transaminase levels Status: Acute Assessment and Plan: Patient with elevated LFTs could be related to hypoxia and/or hypotension -continue to monitor -10/03: hepatitis panel is negative 10/05 RUQ ultrasound: No sonographic evidence of patient's symptoms -LFTs trending down (7) Type 2 diabetes mellitus with hyperglycemia: Qualifiers: 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
[2022-10-10] MEDS: BISACODYL 10 MG SUPPOSITORY RECTAL (11:19)
[2022-10-10] MEDS: METOCLOPRAMIDE HCL 10 MG/10 ML SOLN UDC FEED TUBE ×2 (11:19→17:25)
[2022-10-10] MEDS: BARICITINIB 2 MG TABLET 4 MG PO (11:19)
--- NOTE | 2022-10-10 11:49 | PCNFU ---
Nutrition Follow-Up Complete: Altered GI function related to sepsis as evidenced by pressors, mechanical ventilation, need for trophic tube feeding Goal: Meet estimated nutrition needs Patient is progressing towards goal. We will continue current goal. Pt current nutrition is Glucerna 1.2 at 70 ml/hr. Last recorded weight is 90.9 kg. Bowel Motility:No Bm reported-suppository given per nursing. Labs Reviewed:Glu 206, BUN 59,Mg 2.9, GFR 54 Meds Noted:Lantus, Novolog, Reglan, Dulcolax Suppository,Fentanyl, Miralax. Skin: WNL Additional Notes: Patient remains on mechanical vent and proned at this time. Tube feeding change to Glucerna 1.2 due to elevated blood sugar levels. Goal rate at 70 ml/hr is providing 1848 kcals/92 gms/1240 ml water. Protein Modular of Prosource once daily providing an additional 80 kcals and 20 gms protein. 89% kcal needs met at 25 kcal/kg. Flush 30 ml q 4 hours. Agree with diet orders. Monitoring daily in ICU rounds and reassess Thursday and Thursday
[2022-10-10] MEDS: FENTANYL 2,500MCG/NS250ML(*CRX 2,500 MCG/250 ML BAG 20 MCG IV CONT (11:57)
[2022-10-10 12:04] LABS: Glucose Point of Care 166 mg/dl (65-105)
[2022-10-10] MEDS: MIDAZOLAM 100MG/NS 100ML(*CRX) 100 MG/100 ML BAG 7 MG IV CONT (14:17)
[2022-10-10 14:46] LABS: Legionella pneumophila Ag Ur Not Detected
[2022-10-10 17:57] LABS: Glucose Point of Care 122 mg/dl (65-105)
[2022-10-10 21:42] LABS: Glucose Point of Care 135 mg/dl (65-105)
[2022-10-11] VITALS (30 sets, daily range): BP systolic 93–111; BP diastolic 62–76; PULSE 62–80; RESP 14–27; TEMP 36.6–36.9; O2SAT 87–100
[2022-10-11] MEDS: METOCLOPRAMIDE HCL 10 MG/10 ML SOLN UDC FEED TUBE ×4 (00:58→17:34)
[2022-10-11 01:02] LABS: Glucose Point of Care 106 mg/dl (65-105)
[2022-10-11] MEDS: FENTANYL 2,500MCG/NS250ML(*CRX 2,500 MCG/250 ML BAG 20 MCG IV CONT (01:59)
[2022-10-11] MEDS: LEVALBUTEROL NEB 1.25 MG/3 ML INHALATION ×3 (02:00→19:43)
[2022-10-11] MEDS: IPRATROPIUM BR 0.02% INH SOLN 0.5 MG/2.5 ML VIAL INHALATION ×2 (02:00→19:43)
[2022-10-11] MEDS: MIDAZOLAM 100MG/NS 100ML(*CRX) 100 MG/100 ML BAG 7 MG IV CONT (03:07)
[2022-10-11 05:20] LABS: Glucose Point of Care 89 mg/dl (65-105)
[2022-10-11 05:25] LABS: Basophils Percent Auto 0.3 % (0.2-1.2); Hematocrit 30.9 % (42.0-52.0); Hemoglobin 10.1 g/dL (14.0-18.0); Immature Granulocyte Absolute 0.47 K/mm3 (0.00-0.031); Immature Granulocyte Percent A 3.6 % (0-0.5); Lymphocytes Absolute Auto 0.34 K/mm3 (0.9-3.2); Lymphocytes Percent Auto 2.6 % (18.3-44.2); Mean Corpuscular HGB Conc 32.7 g/dl (32-36); Mean Corpuscular Hemoglobin 31.7 pg (26-34); Mean Corpuscular Volume 96.9 fl (80-100); Mean Platelet Volume 9.4 fl (7.4-10.4); Monocytes Absolute Auto 0.5 K/mm3 (0.1-0.6); Monocytes Percent Auto 3.5 % (2.6-8.5); Neutrophils Absolute Auto 11.7 K/mm3 (1.3-6.7); Platelet Count Result 291 k/mm3 (150-375); Red Blood Count 3.19 M/mm3 (4.6-6.20); Red Cell Distribution Width 13.3 % (11.5-14.5)
[2022-10-11 05:35] LABS: Alanine Aminotransferase 132 U/L (6-50); Albumin Level 2.9 g/dL (3.5-5.1); Alkaline Phosphatase 56 U/L (38-126); Anion Gap 3 mmol/L (8-16); Aspartate Amino Transferase 130 U/L (17-59); Bilirubin,Total 0.7 mg/dL (0.2-1.3); Blood Urea Nitrogen 64 mg/dL (9-20); Carbon Dioxide 31 mmol/L (22-30); Chloride 105 mmol/L (98-107); Estimated CRCL calculation 54 ml/min; Estimated Glomerular Filt Rate 60; Glucose 89 mg/dL (65-110); Magnesium 2.9 mg/dL (1.6-2.3); Potassium 4.1 mmol/L (3.4-5.0); Sodium 139 mmol/L (137-145)
[2022-10-11 06:39] LABS: Crenated RBC 1+ (NORMAL); Platelet Estimate Adequate (Adequate); Schistocytes None Seen (NORMAL)
[2022-10-11 06:40] LABS: Alveolar/Arterial O2 Gradient 218.5 mmHg; Base Excess ABG 1.8 mEq/l (+/-2.0); Carboxyhemoglobin 0.2 % THb (0-2.0); Fractional Inspired Oxygen 45 %; Methemoglobin ABG 0.4 %THb (0-1.5); Oxygen Content ABG 16.5 %vol (16.0-22.0); PCO2 ABG 44.4 mmHg (35.0-45.0); PO2 ABG 51.8 mmHg (80.0-100.0); PO2 FiO2 Ratio Arterial Blood 1.15 %; Total Hemoglobin 13.8 g/dL (12.0-18.0); pH ABG 7.402 (7.350-7.450)
[2022-10-11 06:41] LABS: Device VENTILATOR; Modified Allen's Test Unable to perform; Oxygen Saturation ABG 86.6 % (95.0-100.0); Oxyhemoglobin 85.4 % THb (90.0-100.0); Site Drawn RIGHT RADIAL
[2022-10-11] MEDS: CENTRAL LINE FLUSH 10 ML IV PUSH ×3 (06:41→21:01)
[2022-10-11 06:42] LABS: Arterial Blood Gas PEEP 10 cmH2O; Arterial Blood Gas Tidal Volume 450 ml; Arterial Blood Gas Vent Mode CMV; Arterial Blood Gas Ventilator rate 26 /MIN
[2022-10-11] MEDS: BUDESONIDE RESPULE NEB 0.5 MG/2 ML AMP INHALATION ×2 (08:24→20:45)
[2022-10-11] MEDS: BARICITINIB 2 MG TABLET 4 MG PO (09:17)
[2022-10-11] MEDS: ATORVASTATIN 40 MG TABLET 80 MG PO (09:17)
[2022-10-11] MEDS: EZETIMIBE 10 MG TABLET PO (09:17)
[2022-10-11] MEDS: ASPIRIN 81 MG ENTERIC TABLET PO (09:17)
[2022-10-11] MEDS: ENOXAPARIN 40 MG/0.4 ML SYRINGE SUB-Q (09:18)
[2022-10-11] MEDS: PANTOPRAZOLE SODIUM IV 40 MG VIAL IV PUSH ×2 (09:18→20:59)
[2022-10-11] MEDS: MINERAL OIL/WHITE PETROLATUM OINTMENT 1 APPLIC EACH EYE ×2 (09:19→20:59)
[2022-10-11] MEDS: CEFEPIME 2 GM/NS 50 ML 2 GM/50 ML BAG IVPB ×2 (09:20→20:58)
[2022-10-11] MEDS: polyethylene glycoL 3350 17 GM POWD.PACK PO (09:20)
[2022-10-11 09:45] LABS: Glucose Point of Care 80 mg/dl (65-105)
--- NOTE | 2022-10-11 09:49 | WPDINTPN ---
Progress Note: A&P Assessment and Plan (1) Acute respiratory failure: Code(s): J96.00 - Acute respiratory failure, unspecified whether with hypoxia or hypercapnia Status: Acute Assessment and Plan: Secondary to COVID-19 pneumonia patient presented on 10/02/2022 with shortness of breath, productive cough, fevers, chills, chest x-ray showed bilateral pneumonia -during the course of his hospital stay a he developed worsening shortness of breath, increasing oxygen requirements, was placed on BiPAP on 10/04/2022. -10/05/2022 a.m. patient was transfer the ICU for hypoxic respiratory failure, tachypnea, increased work of breathing. For which he required intubation. Post intubation patient was hypoxic and dyssynchronous with the ventilator. -10/10 patient was placed in prone position. FiO2 improved up to 40%. Peep was decreased to 10 - 10/11 patient was placed back in supine position and FiO2 had to be increased to 60%. Will plan for prone ventilation again today -ABG reviewed -chest x-ray reviewed -continue bronchodilators, Pulmicort -continue fentanyl and Versed infusion 10/07: Discontinued Nimbex (2) Pneumonia: Code(s): J18.9 - Pneumonia, unspecified organism Status: Acute Assessment and Plan: Bilateral middle and lower lung opacities -patient was started on vancomycin, cefepime and azithromycin (10/05) - completed course of azithromycin -10/09 MRSA screen is negative and culture negative vancomycin was discontinue -sputum cultures negative till now (3) Septic shock: Code(s): A41.9 - Sepsis, unspecified organism; R65.21 - Severe sepsis with septic shock Status: Acute Assessment and Plan: Off vasopressors now -continue antibiotics as above -10/02/2022 blood cultures, preliminary results are negative x2 -10/05/2022: Urine cultures - no growth -10/05/2022 blood cultures: Preliminary report is negative x2 -10/05/2022 MRSA screen : No MRSA isolated -10/05/2022 sputum cultures are pending -10/05: PICC line is in place -patient off Levophed, continue to maintain MAP > 65 mm Hg for adequate end organ perfusion (4) COVID-19: Code(s): U07.1 - COVID-19 Status: Acute Assessment and Plan: Patient was tested positive for SARS-CoV-2 PCR on 10/02/2022. According the records he has not received any COVID vaccine -continue dexamethasone -completed course of remdesivir -continue baricitinib -continue antibiotics as above -continue airborne and contact isolation and precautions (5) Acute kidney injury superimposed on CKD: Code(s): N17.9 - Acute kidney failure, unspecified; N18.9 - Chronic kidney disease, unspecified Status: Acute Assessment and Plan: Patient presented with acute kidney injury, has a history of chronic kidney disease stage 3 -creatinine on admission was 1.6 -patient was given adequate amount of fluids, creatinine is down to normal -patient is off all IV fluids -continue monitor urine output, renal function electrolytes (6) Transaminitis: Code(s): R74.01 - Elevation of levels of liver transaminase levels Status: Acute Assessment and Plan: Patient with elevated LFTs could be related to hypoxia and/or hypotension -continue to monitor -10/03: hepatitis panel is negative 10/05 RUQ ultrasound: No sonographic evidence of patient's symptoms -LFTs trending down (7) Type 2 diabetes mellitus with hyperglycemia: Qualifiers: Diabetes mellitus detention insulin use: without detention use Qualified Code(s): E11.65 - Type 2 diabetes mellitus with hyperglycemia Code(s): E11.65 - Type 2 diabetes mellitus with hyperglycemia Status: Acute Assessment and Plan: Hyperglycemia, will continue Accu-Cheks and high does sliding scale -likely secondary to steroids, stress -10/10 change tube feeds to Glucerna -decrease Lantus to 50 units q.12 hours (8) GI bleed: Code(s): K92.2 - Gastrointestina
[2022-10-11] MEDS: FENTANYL 2,500MCG/NS250ML(*CRX 2,500 MCG/250 ML BAG 17.5 MCG IV CONT (12:09)
--- NOTE | 2022-10-11 14:00 | PC.NURSE ---
Patient successfully proned with immediate improvement in sats noted.
[2022-10-11 14:07] LABS: Glucose Point of Care 135 mg/dl (65-105)
[2022-10-11 17:41] LABS: Glucose Point of Care 142 mg/dl (65-105)
[2022-10-11] MEDS: MIDAZOLAM 100MG/NS 100ML(*CRX) 100 MG/100 ML BAG IV CONT (17:54)
[2022-10-11] MEDS: INSULIN GLARGINE (*BKC) 100 UNITS/ML 50 UNITS SUB-Q (20:59)
[2022-10-11 21:10] LABS: Glucose Point of Care 195 mg/dl (65-105)
[2022-10-12] VITALS (31 sets, daily range): BP systolic 101–127; BP diastolic 66–76; PULSE 57–94; RESP 18–32; TEMP 36.6–37.1; O2SAT 89–99
[2022-10-12] MEDS: INSULIN ASPART (*BKC) 100 UNITS/ML SUB-Q ×5 (00:16→21:26)
[2022-10-12] MEDS: METOCLOPRAMIDE HCL 10 MG/10 ML SOLN UDC FEED TUBE ×4 (00:21→17:05)
[2022-10-12 00:33] LABS: Glucose Point of Care 277 mg/dl (65-105)
[2022-10-12] MEDS: LEVALBUTEROL NEB 1.25 MG/3 ML INHALATION ×4 (02:06→20:23)
[2022-10-12 05:16] LABS: Alveolar/Arterial O2 Gradient 141.9 mmHg; Base Excess ABG 1.9 mEq/l (+/-2.0); Carboxyhemoglobin 0.2 % THb (0-2.0); Fractional Inspired Oxygen 40 %; HCO3 ABG 25.9 mEq/l (22.0-26.0); Methemoglobin ABG 0.3 %THb (0-1.5); Oxygen Content ABG 15.8 %vol (16.0-22.0); Oxygen Saturation ABG 97.8 % (95.0-100.0); Oxyhemoglobin 95.9 % THb (90.0-100.0); PCO2 ABG 38.4 mmHg (35.0-45.0); PO2 ABG 99.1 mmHg (80.0-100.0); PO2 FiO2 Ratio Arterial Blood 2.48 %; Reduced Hemoglobin 3.6 %THb (0-5.0); Total Hemoglobin 11.6 g/dL (12.0-18.0); pH ABG 7.447 (7.350-7.450)
[2022-10-12 05:17] LABS: Arterial Blood Gas Vent Mode CMV; Arterial Blood Gas Ventilator rate 26 /MIN; Device VENTILATOR; Modified Allen's Test Pass; Site Drawn RIGHT RADIAL
[2022-10-12 05:18] LABS: Arterial Blood Gas PEEP 10 cmH2O; Arterial Blood Gas Tidal Volume 450 ml
[2022-10-12] MEDS: CENTRAL LINE FLUSH 10 ML IV PUSH ×3 (05:50→21:27)
[2022-10-12 06:09] LABS: Basophils Percent Auto 0.2 % (0.2-1.2); Hematocrit 31.2 % (42.0-52.0); Hemoglobin 10.3 g/dL (14.0-18.0); Immature Granulocyte Absolute 0.77 K/mm3 (0.00-0.031); Immature Granulocyte Percent A 5.8 % (0-0.5); Lymphocytes Absolute Auto 0.34 K/mm3 (0.9-3.2); Lymphocytes Percent Auto 2.6 % (18.3-44.2); Mean Corpuscular Hemoglobin 32.3 pg (26-34); Mean Corpuscular Volume 97.8 fl (80-100); Mean Platelet Volume 9.4 fl (7.4-10.4); Monocytes Absolute Auto 0.7 K/mm3 (0.1-0.6); Monocytes Percent Auto 5.3 % (2.6-8.5); Neutrophils Absolute Auto 11.4 K/mm3 (1.3-6.7); Neutrophils Percent Auto 86.1 % (45.5-73.1); Nucleated Red Blood Cells Perc 0.2 % (0.0-0.2); Platelet Count Result 318 k/mm3 (150-375); Red Blood Count 3.19 M/mm3 (4.6-6.20); Red Cell Distribution Width 13.2 % (11.5-14.5); White Blood Count 13.3 K/mm3 (4.5-10.0)
[2022-10-12 06:22] LABS: Alanine Aminotransferase 174 U/L (6-50); Alkaline Phosphatase 62 U/L (38-126); Anion Gap 3 mmol/L (8-16); Aspartate Amino Transferase 147 U/L (17-59); Bilirubin,Total 0.7 mg/dL (0.2-1.3); Blood Urea Nitrogen 80 mg/dL (9-20); Calcium 8.5 mg/dL (8.4-10.2); Carbon Dioxide 31 mmol/L (22-30); Chloride 105 mmol/L (98-107); Estimated CRCL calculation 51 ml/min; Estimated Glomerular Filt Rate 54; Glucose 258 mg/dL (65-110); Magnesium 3.1 mg/dL (1.6-2.3); Potassium 4.7 mmol/L (3.4-5.0); Sodium 139 mmol/L (137-145)
[2022-10-12 07:30] LABS: Crenated RBC 1+ (NORMAL); Platelet Estimate Adequate (Adequate); Schistocytes None Seen (NORMAL)
[2022-10-12] MEDS: BUDESONIDE RESPULE NEB 0.5 MG/2 ML AMP INHALATION ×2 (07:38→20:20)
[2022-10-12] MEDS: FENTANYL 2,500MCG/NS250ML(*CRX 2,500 MCG/250 ML BAG 17.5 MCG IV CONT ×2 (07:40→21:34)
--- NOTE | 2022-10-12 08:23 | PC.NURSE ---
Patient turned supine at 0747 per MD orders. Tolerated well. Patient remains on 40% FiO2. RN to monitor.
[2022-10-12] MEDS: CEFEPIME 2 GM/NS 50 ML 2 GM/50 ML BAG IVPB ×2 (08:42→21:25)
[2022-10-12] MEDS: FUROSEMIDE INJ 40 MG/4 ML VIAL IV PUSH (08:42)
[2022-10-12] MEDS: polyethylene glycoL 3350 17 GM POWD.PACK PO (08:42)
[2022-10-12] MEDS: PANTOPRAZOLE SODIUM IV 40 MG VIAL IV PUSH ×2 (08:43→21:27)
[2022-10-12] MEDS: MINERAL OIL/WHITE PETROLATUM OINTMENT 1 APPLIC EACH EYE ×2 (08:43→21:27)
[2022-10-12] MEDS: INSULIN GLARGINE (*BKC) 100 UNITS/ML 60 UNITS SUB-Q ×2 (08:43→21:27)
[2022-10-12] MEDS: ENOXAPARIN 40 MG/0.4 ML SYRINGE SUB-Q (08:44)
[2022-10-12] MEDS: ASPIRIN 81 MG ENTERIC TABLET PO (08:44)
[2022-10-12] MEDS: ATORVASTATIN 40 MG TABLET 80 MG PO (08:44)
[2022-10-12] MEDS: EZETIMIBE 10 MG TABLET PO (08:44)
[2022-10-12 09:30] LABS: Glucose Point of Care 251 mg/dl (65-105)
--- NOTE | 2022-10-12 09:36 | WPDINTPN ---
Progress Note: A&P Assessment and Plan (1) Acute respiratory failure: Code(s): J96.00 - Acute respiratory failure, unspecified whether with hypoxia or hypercapnia Status: Acute Assessment and Plan: Secondary to COVID-19 pneumonia patient presented on 10/02/2022 with shortness of breath, productive cough, fevers, chills, chest x-ray showed bilateral pneumonia -during the course of his hospital stay a he developed worsening shortness of breath, increasing oxygen requirements, was placed on BiPAP on 10/04/2022. -10/05/2022 a.m. patient was transfer the ICU for hypoxic respiratory failure, tachypnea, increased work of breathing. For which he required intubation. Post intubation patient was hypoxic and dyssynchronous with the ventilator. -10/10 patient was placed in prone position. FiO2 improved up to 40%. Peep was decreased to 10 - 10/11 patient was placed back in supine position and FiO2 had to be increased to 60%. Will plan for prone ventilation again today -10/12 patient was placed in prone position again last night and did well and currently down to 40% FiO2 and 10 of PEEP. Now in supine position. Continue Lasix -ABG reviewed -chest x-ray reviewed. ET tube was readjusted when patient was reposition -continue bronchodilators, Pulmicort -continue fentanyl and Versed infusion 10/07: Discontinued Nimbex (2) Pneumonia: Code(s): J18.9 - Pneumonia, unspecified organism Status: Acute Assessment and Plan: Bilateral middle and lower lung opacities -patient was started on vancomycin, cefepime and azithromycin (10/05) - completed course of azithromycin -10/09 MRSA screen is negative and culture negative vancomycin was discontinue -10/12 will complete course of cefepime today -sputum cultures negative till now (3) Septic shock: Code(s): A41.9 - Sepsis, unspecified organism; R65.21 - Severe sepsis with septic shock Status: Acute Assessment and Plan: Off vasopressors now -continue antibiotics as above -10/02/2022 blood cultures, preliminary results are negative x2 -10/05/2022: Urine cultures - no growth -10/05/2022 blood cultures: Preliminary report is negative x2 -10/05/2022 MRSA screen : No MRSA isolated -10/05/2022 sputum cultures are pending -10/05: PICC line is in place -patient off Levophed, continue to maintain MAP > 65 mm Hg for adequate end organ perfusion (4) COVID-19: Code(s): U07.1 - COVID-19 Status: Acute Assessment and Plan: Patient was tested positive for SARS-CoV-2 PCR on 10/02/2022. According the records he has not received any COVID vaccine -continue dexamethasone -completed course of remdesivir -continue baricitinib -continue antibiotics as above -continue airborne and contact isolation and precautions (5) Acute kidney injury superimposed on CKD: Code(s): N17.9 - Acute kidney failure, unspecified; N18.9 - Chronic kidney disease, unspecified Status: Acute Assessment and Plan: Patient presented with acute kidney injury, has a history of chronic kidney disease stage 3 -creatinine on admission was 1.6 -patient was given adequate amount of fluids, creatinine is down to normal -patient is off all IV fluids -continue monitor urine output, renal function electrolytes (6) Transaminitis: Code(s): R74.01 - Elevation of levels of liver transaminase levels Status: Acute Assessment and Plan: Patient with elevated LFTs could be related to hypoxia and/or hypotension -continue to monitor -10/03: hepatitis panel is negative 10/05 RUQ ultrasound: No sonographic evidence of patient's symptoms -LFTs trending down (7) Type 2 diabetes mellitus with hyperglycemia: Qualifiers: Diabetes mellitus jail insulin use: without jail use Qualified Code(s): E11.65 - Type 2 diabetes mellitus with hyperglycemia Code(s): E11.65 - Type 2 diabetes mellitus with hyperglycemia Status: Acute Assessm
[2022-10-12] MEDS: BARICITINIB 2 MG TABLET 4 MG PO (12:00)
[2022-10-12 12:36] LABS: Glucose Point of Care 250 mg/dl (65-105)
[2022-10-12] MEDS: MIDAZOLAM 100MG/NS 100ML(*CRX) 100 MG/100 ML BAG IV CONT (15:47)
[2022-10-12 18:00] LABS: Glucose Point of Care 279 mg/dl (65-105)
[2022-10-12 20:19] LABS: Glucose Point of Care 260 mg/dl (65-105)
[2022-10-13] VITALS (77 sets, daily range): BP systolic 77–154; BP diastolic 61–86; PULSE 69–111; RESP 13–32; TEMP 36.9–38.8; O2SAT 88–100
[2022-10-13 00:27] LABS: Glucose Point of Care 227 mg/dl (65-105)
[2022-10-13] MEDS: METOCLOPRAMIDE HCL 10 MG/10 ML SOLN UDC FEED TUBE ×5 (00:47→23:48)
[2022-10-13] MEDS: INSULIN ASPART (*BKC) 100 UNITS/ML SUB-Q (00:47)
[2022-10-13] MEDS: MIDAZOLAM HCL (*CRX) 2 MG/2 ML VIAL 5 MG IV PUSH (02:35)
[2022-10-13] MEDS: LEVALBUTEROL NEB 1.25 MG/3 ML INHALATION ×4 (02:44→21:28)
--- NOTE | 2022-10-13 03:05 | PC.NURSE ---
0220 Dr Kumar informed of increased work of breathing, decreasing o2sats, tachypnea, tachycardia, and increasing temp to 100.2. Orders received.
[2022-10-13] MEDS: ACETAMINOPHEN 500 MG TABLET PO (04:19)
[2022-10-13 04:52] LABS: Basophils Percent Auto 0.2 % (0.2-1.2); Hematocrit 34.9 % (42.0-52.0); Hemoglobin 11.4 g/dL (14.0-18.0); Immature Granulocyte Absolute 0.37 K/mm3 (0.00-0.031); Immature Granulocyte Percent A 2.3 % (0-0.5); Lymphocytes Absolute Auto 0.28 K/mm3 (0.9-3.2); Lymphocytes Percent Auto 1.8 % (18.3-44.2); Mean Corpuscular HGB Conc 32.7 g/dl (32-36); Mean Corpuscular Hemoglobin 31.7 pg (26-34); Mean Corpuscular Volume 96.9 fl (80-100); Mean Platelet Volume 9.6 fl (7.4-10.4); Monocytes Absolute Auto 0.5 K/mm3 (0.1-0.6); Monocytes Percent Auto 3.2 % (2.6-8.5); Neutrophils Absolute Auto 14.6 K/mm3 (1.3-6.7); Neutrophils Percent Auto 92.5 % (45.5-73.1); Nucleated Red Blood Cells Perc 0.1 % (0.0-0.2); Platelet Count Result 358 k/mm3 (150-375); Red Cell Distribution Width 13.2 % (11.5-14.5); White Blood Count 15.8 K/mm3 (4.5-10.0)
[2022-10-13 04:59] LABS: Alveolar/Arterial O2 Gradient 464.5 mmHg; Base Excess ABG 5.6 mEq/l (+/-2.0); Carboxyhemoglobin 0.3 % THb (0-2.0); Fractional Inspired Oxygen 80 %; HCO3 ABG 30.2 mEq/l (22.0-26.0); Methemoglobin ABG 0.4 %THb (0-1.5); Oxygen Content ABG 20.2 %vol (16.0-22.0); Oxygen Saturation ABG 92.4 % (95.0-100.0); Oxyhemoglobin 89.6 % THb (90.0-100.0); PCO2 ABG 43.2 mmHg (35.0-45.0); PO2 ABG 60.5 mmHg (80.0-100.0); PO2 FiO2 Ratio Arterial Blood 0.76 %; Reduced Hemoglobin 9.7 %THb (0-5.0); Total Hemoglobin 16.1 g/dL (12.0-18.0); pH ABG 7.462 (7.350-7.450)
[2022-10-13 05:00] LABS: Arterial Blood Gas PEEP 10 cmH2O; Arterial Blood Gas Tidal Volume 450 ml; Arterial Blood Gas Vent Mode CMV; Arterial Blood Gas Ventilator rate 26 /MIN; Device VENTILATOR; Modified Allen's Test Pass; Site Drawn RIGHT RADIAL
[2022-10-13 05:00] LABS: Alanine Aminotransferase 336 U/L (6-50); Albumin Level 3.2 g/dL (3.5-5.1); Alkaline Phosphatase 74 U/L (38-126); Anion Gap 3 mmol/L (8-16); Aspartate Amino Transferase 272 U/L (17-59); Bilirubin,Total 0.8 mg/dL (0.2-1.3); Blood Urea Nitrogen 90 mg/dL (9-20); Calcium 8.5 mg/dL (8.4-10.2); Carbon Dioxide 35 mmol/L (22-30); Chloride 107 mmol/L (98-107); Estimated CRCL calculation 51 ml/min; Estimated Glomerular Filt Rate 54; Glucose 87 mg/dL (65-110); Potassium 4.5 mmol/L (3.4-5.0); Sodium 145 mmol/L (137-145)
--- NOTE | 2022-10-13 05:25 | PC.NURSE ---
0515 Dr Kumar updated on condition. Orders received
[2022-10-13] MEDS: CENTRAL LINE FLUSH 10 ML IV PUSH ×3 (05:28→23:50)
[2022-10-13] MEDS: ROCURONIUM BROMIDE 50 MG/5 ML VIAL IV PUSH ×2 (06:02→10:42)
[2022-10-13] MEDS: MIDAZOLAM 100MG/NS 100ML(*CRX) 100 MG/100 ML BAG 9 MG IV CONT ×2 (06:05→17:23)
[2022-10-13] MEDS: BUDESONIDE RESPULE NEB 0.5 MG/2 ML AMP INHALATION ×2 (07:47→21:28)
[2022-10-13 08:15] LABS: Glucose Point of Care 40 mg/dl (65-105)
[2022-10-13 08:15] LABS: Glucose Point of Care 37 mg/dl (65-105)
[2022-10-13] MEDS: DEXTROSE 50% 25 GM/50 ML SYRINGE IV PUSH ×3 (08:18→20:52)
[2022-10-13] MEDS: ENOXAPARIN 40 MG/0.4 ML SYRINGE SUB-Q (08:19)
[2022-10-13] MEDS: PANTOPRAZOLE SODIUM IV 40 MG VIAL IV PUSH ×2 (08:19→20:53)
[2022-10-13] MEDS: EZETIMIBE 10 MG TABLET PO (08:19)
[2022-10-13] MEDS: MINERAL OIL/WHITE PETROLATUM OINTMENT 1 APPLIC EACH EYE ×2 (08:19→20:53)
[2022-10-13] MEDS: ASPIRIN 81 MG ENTERIC TABLET PO (08:19)
[2022-10-13] MEDS: ATORVASTATIN 40 MG TABLET 80 MG PO (08:25)
[2022-10-13] MEDS: polyethylene glycoL 3350 17 GM POWD.PACK PO (08:26)
[2022-10-13 08:59] LABS: Glucose Point of Care 92 mg/dl (65-105)
[2022-10-13 08:59] LABS: Glucose Point of Care 120 mg/dl (65-105)
[2022-10-13] MEDS: BARICITINIB 2 MG TABLET 4 MG PO (10:00)
[2022-10-13] MEDS: PIPERACILLIN/TAZOBACTAM SOD 4.5 GM in SODIUM CHLORIDE 0.9% IV 100 ML 200 ML IVPB ×3 (10:00→23:51)
[2022-10-13] MEDS: FENTANYL 2,500MCG/NS250ML(*CRX 2,500 MCG/250 ML BAG 20 MCG IV CONT ×2 (10:08→23:46)
--- NOTE | 2022-10-13 10:44 | WPDINTPN ---
Progress Note: A&P Assessment and Plan (1) Acute respiratory failure: Code(s): J96.00 - Acute respiratory failure, unspecified whether with hypoxia or hypercapnia Status: Acute Assessment and Plan: Secondary to COVID-19 pneumonia patient presented on 10/02/2022 with shortness of breath, productive cough, fevers, chills, chest x-ray showed bilateral pneumonia -during the course of his hospital stay a he developed worsening shortness of breath, increasing oxygen requirements, was placed on BiPAP on 10/04/2022. -10/05/2022 a.m. patient was transfer the ICU for hypoxic respiratory failure, tachypnea, increased work of breathing. For which he required intubation. Post intubation patient was hypoxic and dyssynchronous with the ventilator. -10/10 patient was placed in prone position. FiO2 improved up to 40%. Peep was decreased to 10 - 10/11 patient was placed back in supine position and FiO2 had to be increased to 60%. Will plan for prone ventilation again today -10/12 patient was placed in prone position again last night and did well and currently down to 40% FiO2 and 10 of PEEP. Now in supine position. Continue Lasix - 10/13 FiO2 increased overnight again to 80%. Will place patient in prone position again. Rocuronium 50 mg IV x1. Peep is at 10. Hold Lasix due to worsening renal function -ABG reviewed -chest x-ray reviewed. -continue bronchodilators, Pulmicort -continue fentanyl and Versed infusion (2) Pneumonia: Code(s): J18.9 - Pneumonia, unspecified organism Status: Acute Assessment and Plan: Bilateral middle and lower lung opacities -patient was started on vancomycin, cefepime and azithromycin (10/05) - completed course of azithromycin -10/09 MRSA screen is negative and culture negative vancomycin was discontinue -10/12 completed course of cefepime today -sputum cultures negative till now (3) Septic shock: Code(s): A41.9 - Sepsis, unspecified organism; R65.21 - Severe sepsis with septic shock Status: Acute Assessment and Plan: Off vasopressors now -10/02/2022 blood cultures, preliminary results are negative x2 -10/05/2022: Urine cultures - no growth -10/05/2022 blood cultures: Preliminary report is negative x2 -10/05/2022 MRSA screen : No MRSA isolated -10/05/2022 sputum cultures are pending -10/05: PICC line is in place 10/13-febrile overnight. Increased oxygen requirement Change Bonilla, check UA with micro, repeat sputum and blood cultures Empiric vanc and Zosyn (4) COVID-19: Code(s): U07.1 - COVID-19 Status: Acute Assessment and Plan: Patient was tested positive for SARS-CoV-2 PCR on 10/02/2022. According the records he has not received any COVID vaccine -completed course of remdesivir dexamethasone -continue baricitinib -continue antibiotics as above -continue airborne and contact isolation and precautions (5) Acute kidney injury superimposed on CKD: Code(s): N17.9 - Acute kidney failure, unspecified; N18.9 - Chronic kidney disease, unspecified Status: Acute Assessment and Plan: Patient presented with acute kidney injury, has a history of chronic kidney disease stage 3 -creatinine on admission was 1.6 -patient was given adequate amount of fluids, creatinine is down to normal -elevated BUN likely secondary to steroids -patient is off all IV fluids and has been receiving Lasix off and on -continue monitor urine output, renal function electrolytes (6) Transaminitis: Code(s): R74.01 - Elevation of levels of liver transaminase levels Status: Acute Assessment and Plan: Patient with elevated LFTs could be related to hypoxia and/or hypotension -continue to monitor -10/03: hepatitis panel is negative 10/05 RUQ ultrasound: No sonographic evidence of patient's symptoms -LFTs trending down (7) Type 2 diabetes mellitus with hyperglycemia: Qualifiers: Diabetes mellitus termination clerk insulin use: without
--- NOTE | 2022-10-13 10:52 | PCFNICU ---
ICU Rounding Note: Pt current nutrition Glucerna 1.2 @ 70 ml/h with flushes 30 ml q 4 hours. +Prsource protein modular orders 1x day. Total 1928 kcals, 112 g protein, 1240 ml free water. Nutrition recommendation: No changes to current tube feeding regimen and supplements. Agree with orders. Last recorded weight is 93.6 kg. Bowel Motility: Last BM +1 10/11/22 Labs Reviewed: Hgb 11.4, Hct 234.9, Alb 3.2, GFR 54, BUN 90, Mag 3.0 Meds Noted: Protonix, Lantus, novolog, Reglan Skin: WNL Additional Notes: Tolerating tube feedings. Meeting protein energy needs ~ 96% EER. No changes to tube feeding. Following daily in ICU rounds. Monitoring daily in ICU rounds Reassess Thursday and Thursday.
[2022-10-13 11:53] LABS: Glucose Point of Care 99 mg/dl (65-105)
[2022-10-13 16:05] LABS: Glucose Point of Care 49 mg/dl (65-105)
[2022-10-13 16:33] LABS: Glucose Point of Care 116 mg/dl (65-105)
[2022-10-13] MEDS: DEXTROSE 10% 1,000 ML 20 ML IV CONT (17:15)
[2022-10-13 18:23] LABS: Glucose Point of Care 86 mg/dl (65-105)
[2022-10-13 18:44] LABS: Glucose Point of Care 75 mg/dl (65-105)
[2022-10-13 21:13] LABS: Glucose Point of Care 67 mg/dl (65-105)
[2022-10-14] VITALS (112 sets, daily range): BP systolic 80–140; BP diastolic 64–83; PULSE 69–130; RESP 13–32; TEMP 37.3–38.3; O2SAT 71–100
[2022-10-14 00:02] LABS: Glucose Point of Care 86 mg/dl (65-105)
[2022-10-14 00:02] LABS: Glucose Point of Care 110 mg/dl (65-105)
[2022-10-14] MEDS: LEVALBUTEROL NEB 1.25 MG/3 ML INHALATION ×5 (03:10→20:34)
[2022-10-14] MEDS: ROCURONIUM BROMIDE 50 MG/5 ML VIAL IV PUSH ×2 (03:39→16:23)
[2022-10-14] MEDS: ACETAMINOPHEN ELIXIR 325 MG/10.15 ML UDC 650 MG PO (03:40)
[2022-10-14 04:04] LABS: Basophils Percent Auto 0.2 % (0.2-1.2); Hematocrit 26.9 % (42.0-52.0); Hemoglobin 8.7 g/dL (14.0-18.0); Immature Granulocyte Absolute 0.16 K/mm3 (0.00-0.031); Immature Granulocyte Percent A 1.2 % (0-0.5); Lymphocytes Absolute Auto 0.29 K/mm3 (0.9-3.2); Lymphocytes Percent Auto 2.1 % (18.3-44.2); Mean Corpuscular HGB Conc 32.3 g/dl (32-36); Mean Corpuscular Volume 98.9 fl (80-100); Mean Platelet Volume 9.2 fl (7.4-10.4); Monocytes Absolute Auto 0.4 K/mm3 (0.1-0.6); Monocytes Percent Auto 3.2 % (2.6-8.5); Neutrophils Absolute Auto 12.7 K/mm3 (1.3-6.7); Neutrophils Percent Auto 93.3 % (45.5-73.1); Platelet Count Result 235 k/mm3 (150-375); Red Blood Count 2.72 M/mm3 (4.6-6.20); Red Cell Distribution Width 13.5 % (11.5-14.5); White Blood Count 13.6 K/mm3 (4.5-10.0)
[2022-10-14 04:19] LABS: Alanine Aminotransferase 313 U/L (6-50); Albumin Level 2.4 g/dL (3.5-5.1); Alkaline Phosphatase 54 U/L (38-126); Anion Gap 4 mmol/L (8-16); Aspartate Amino Transferase 234 U/L (17-59); Bilirubin,Total 0.9 mg/dL (0.2-1.3); Blood Urea Nitrogen 72 mg/dL (9-20); Carbon Dioxide 30 mmol/L (22-30); Chloride 110 mmol/L (98-107); Estimated CRCL calculation 51 ml/min; Estimated Glomerular Filt Rate 54; Glucose 172 mg/dL (65-110); Magnesium 2.8 mg/dL (1.6-2.3); Potassium 4.1 mmol/L (3.4-5.0); Sodium 144 mmol/L (137-145)
[2022-10-14] MEDS: METOCLOPRAMIDE HCL 10 MG/10 ML SOLN UDC FEED TUBE ×4 (05:27→23:01)
[2022-10-14] MEDS: PIPERACILLIN/TAZOBACTAM SOD 4.5 GM in SODIUM CHLORIDE 0.9% IV 100 ML 200 ML IVPB ×3 (05:27→18:19)
[2022-10-14] MEDS: CENTRAL LINE FLUSH 10 ML IV PUSH ×3 (05:28→20:09)
[2022-10-14 05:32] LABS: Alveolar/Arterial O2 Gradient 578.1 mmHg; Base Excess ABG 4.6 mEq/l (+/-2.0); Carboxyhemoglobin 0.3 % THb (0-2.0); Fractional Inspired Oxygen 100 %; HCO3 ABG 28.9 mEq/l (22.0-26.0); Methemoglobin ABG 0.3 %THb (0-1.5); Oxygen Content ABG 18.8 %vol (16.0-22.0); Oxygen Saturation ABG 97.4 % (95.0-100.0); Oxyhemoglobin 95.7 % THb (90.0-100.0); PCO2 ABG 41.8 mmHg (35.0-45.0); PO2 ABG 93.1 mmHg (80.0-100.0); PO2 FiO2 Ratio Arterial Blood 0.93 %; Reduced Hemoglobin 3.7 %THb (0-5.0); Total Hemoglobin 13.9 g/dL (12.0-18.0); pH ABG 7.458 (7.350-7.450)
[2022-10-14 05:33] LABS: Modified Allen's Test Pass; Site Drawn RIGHT RADIAL
[2022-10-14 05:34] LABS: Arterial Blood Gas PEEP 10 cmH2O; Arterial Blood Gas Vent Mode CMV; Arterial Blood Gas Ventilator rate 26 /MIN; Device VENTILATOR
[2022-10-14 05:35] LABS: Arterial Blood Gas Tidal Volume 450 ml
[2022-10-14 06:14] LABS: Glucose Point of Care 103 mg/dl (65-105)
[2022-10-14] MEDS: BUDESONIDE RESPULE NEB 0.5 MG/2 ML AMP INHALATION ×2 (09:17→20:34)
[2022-10-14] MEDS: PANTOPRAZOLE SODIUM IV 40 MG VIAL IV PUSH ×2 (09:42→20:10)
[2022-10-14] MEDS: polyethylene glycoL 3350 17 GM POWD.PACK PO (09:42)
[2022-10-14] MEDS: MINERAL OIL/WHITE PETROLATUM OINTMENT 1 APPLIC EACH EYE ×2 (09:42→20:09)
[2022-10-14] MEDS: EZETIMIBE 10 MG TABLET PO (09:42)
[2022-10-14] MEDS: ENOXAPARIN 40 MG/0.4 ML SYRINGE SUB-Q (09:42)
[2022-10-14] MEDS: ASPIRIN 81 MG ENTERIC TABLET PO (09:42)
[2022-10-14] MEDS: ATORVASTATIN 40 MG TABLET 80 MG PO (09:42)
[2022-10-14 09:53] LABS: Glucose Point of Care 191 mg/dl (65-105)
[2022-10-14] MEDS: BARICITINIB 2 MG TABLET 4 MG PO (10:20)
--- NOTE | 2022-10-14 11:56 | PCNFU ---
Nutrition Follow-Up Complete: Altered GI function related to sepsis as evidenced by pressors, mechanical ventilation, need for trophic tube feeding Goal:Meet estimated nutrition needs Pt current nutrition is Glucerna 1.2 at 70ml/hr =1848kcals, 92g protein, plus prosouce daily for an additional 80kcals, 20g protein. Totals:1928kcals, 112g protein per day. *Noted tube feeding reduced to 20ml/hr due to residuals for +600ml. Nutrition recommendation: Slowly resume to goal rate of tube feeding Last recorded weight is 91.6 kg. Bowel Motility: +BM 10/11 Labs Reviewed:Hgb:8.7, HCT:26.9, Alb:2.4, GFR:54, BUN:72, Glu:197, M.8 Meds Noted: Reglan, lovenox, novolog, miralax Skin:WNL Additional Notes: Pt remains on mechanical ventilation. Tube feedings were reduced last night to 20ml/hr due to high residuals of +600ml. Nursing to slowly advance by 10ml q 4 hrs today back to goal rate and monitor tolerance. Goal rate meets 90% of caloric needs, 100% of protein needs. Monitoring daily in ICU rounds Reassess Thursday and Thursday
[2022-10-14] MEDS: FENTANYL 2,500MCG/NS250ML(*CRX 2,500 MCG/250 ML BAG 20 MCG IV CONT (12:21)
[2022-10-14 12:24] LABS: Glucose Point of Care 115 mg/dl (65-105)
[2022-10-14] MEDS: IPRATROPIUM BR 0.02% INH SOLN 0.5 MG/2.5 ML VIAL INHALATION (13:37)
--- NOTE | 2022-10-14 14:33 | WPDINTPN ---
Progress Note: A&P Assessment and Plan (1) Acute respiratory failure: Qualifiers: Respiratory failure complication: hypoxia and hypercapnia Qualified Code(s): J96.01 - Acute respiratory failure with hypoxia; J96.02 - Acute respiratory failure with hypercapnia; J96.02 - Acute respiratory failure with hypercapnia Code(s): J96.00 - Acute respiratory failure, unspecified whether with hypoxia or hypercapnia Status: Acute Assessment and Plan: Secondary to COVID-19 pneumonia patient presented on 10/02/2022 with shortness of breath, productive cough, fevers, chills, chest x-ray showed bilateral pneumonia -during the course of his hospital stay a he developed worsening shortness of breath, increasing oxygen requirements, was placed on BiPAP on 10/04/2022. -10/05/2022 a.m. patient was transfer the ICU for hypoxic respiratory failure, tachypnea, increased work of breathing. For which he required intubation. Post intubation patient was hypoxic and dyssynchronous with the ventilator. -10/10 patient was placed in prone position. FiO2 improved up to 40%. Peep was decreased to 10 - 10/11 patient was placed back in supine position and FiO2 had to be increased to 60%. Will plan for prone ventilation again today -10/12 patient was placed in prone position again last night and did well and currently down to 40% FiO2 and 10 of PEEP. Now in supine position. Continue Lasix - 10/13 FiO2 increased overnight again to 80%. Will place patient in prone position again. Rocuronium 50 mg IV x1. Peep is at 10. - 10/14: FiO2 was increased overnight again to 100%, patient also requires rocuronium IV x1 dose. During the course of the day patient was desaturating and peep was increased to 12 and patient remained on 100% FiO2. -ABG reviewed -chest x-ray reviewed. -continue bronchodilators, Pulmicort -continue fentanyl and Versed infusion (2) Pneumonia: Code(s): J18.9 - Pneumonia, unspecified organism Status: Acute Assessment and Plan: Bilateral middle and lower lung opacities -patient has completed full course of vancomycin, cefepime and azithromycin -10/09 MRSA screen is negative and culture negative -sputum cultures negative till date (3) Septic shock: Code(s): A41.9 - Sepsis, unspecified organism; R65.21 - Severe sepsis with septic shock Status: Acute Assessment and Plan: Off vasopressors now -10/02/2022 blood cultures, preliminary results are negative x2 -10/05/2022: Urine cultures - no growth -10/05/2022 blood cultures: Preliminary report is negative x2 -10/05/2022 MRSA screen : No MRSA isolated -10/05/2022 sputum cultures are negative to date -10/05: PICC line is in place 10/13-febrile overnight. Increased oxygen requirement, Change Bonilla, check UA with micro, -10/13: Blood cultures growing Gram-positive cocci in clusters 1/2 bottles -10/13: Sputum cultures pending 10/13: Patient was placed on vancomycin and Zosyn (4) COVID-19: Code(s): U07.1 - COVID-19 Status: Acute Assessment and Plan: Patient was tested positive for SARS-CoV-2 PCR on 10/02/2022. According the records he has not received any COVID vaccine -completed course of remdesivir dexamethasone -continue baricitinib -continue antibiotics as above -continue airborne and contact isolation and precautions (5) Acute kidney injury superimposed on CKD: Code(s): N17.9 - Acute kidney failure, unspecified; N18.9 - Chronic kidney disease, unspecified Status: Acute Assessment and Plan: Patient presented with acute kidney injury, has a history of chronic kidney disease stage 3 -creatinine on admission was 1.6 -patient was given adequate amount of fluids, creatinine is down to normal -elevated BUN likely secondary to steroids -patient is off all IV fluids and has been receiving Lasix off and on -continue monitor urine output, renal function electrolytes (6) Transaminitis: Code(s): R74.01 - El
--- NOTE | 2022-10-14 16:30 | PC.NURSE ---
[id number]- Spoke with patient's niece Ana Cristina, she stated she wants to move forward to comfort care at 10am on 10/15/22.
[2022-10-14] MEDS: MIDAZOLAM 100MG/NS 100ML(*CRX) 100 MG/100 ML BAG 9 MG IV CONT (18:21)
[2022-10-14 18:51] LABS: Glucose Point of Care 176 mg/dl (65-105)
[2022-10-14 20:15] LABS: Glucose Point of Care 161 mg/dl (65-105)
[2022-10-14 21:11] LABS: Vancomycin Trough 21.1 ug/mL (10.0-20.0)
[2022-10-14] MEDS: hetaSTARCH 6%/NACL 500 ML 250 ML IV CONT (22:50)
[2022-10-14 23:03] LABS: Glucose Point of Care 171 mg/dl (65-105)
[2022-10-15] VITALS (15 sets, daily range): BP systolic 86–102; BP diastolic 59–68; PULSE 74–92; RESP 14–28; TEMP 36.6–37.6; O2SAT 93–100
[2022-10-15] MEDS: FENTANYL 2,500MCG/NS250ML(*CRX 2,500 MCG/250 ML BAG 20 MCG IV CONT (00:23)
[2022-10-15] MEDS: PIPERACILLIN/TAZOBACTAM SOD 4.5 GM in SODIUM CHLORIDE 0.9% IV 100 ML 200 ML IVPB ×2 (01:06→05:02)
[2022-10-15] MEDS: LEVALBUTEROL NEB 1.25 MG/3 ML INHALATION ×2 (02:45→08:53)
[2022-10-15] MEDS: METOCLOPRAMIDE HCL 10 MG/10 ML SOLN UDC FEED TUBE (05:03)
[2022-10-15] MEDS: CENTRAL LINE FLUSH 10 ML IV PUSH (05:03)
[2022-10-15 05:15] LABS: Basophils Percent Auto 0.1 % (0.2-1.2); Immature Granulocyte Absolute 0.17 K/mm3 (0.00-0.031); Immature Granulocyte Percent A 1.3 % (0-0.5); Mean Corpuscular HGB Conc 30.7 g/dl (32-36); Mean Corpuscular Hemoglobin 31.7 pg (26-34); Mean Corpuscular Volume 103.1 fl (80-100); Mean Platelet Volume 10.2 fl (7.4-10.4); Monocytes Absolute Auto 0.5 K/mm3 (0.1-0.6); Monocytes Percent Auto 3.6 % (2.6-8.5); Neutrophils Absolute Auto 12.2 K/mm3 (1.3-6.7); Platelet Count Result 158 k/mm3 (150-375); Red Blood Count 1.61 M/mm3 (4.6-6.20); Red Cell Distribution Width 13.4 % (11.5-14.5); White Blood Count 13.2 K/mm3 (4.5-10.0)
--- NOTE | 2022-10-15 05:17 | PCRCNOTE ---
DERIC attempted this AM. Unable to obtain. Pt is proned. Care to be withdrawn at 1000. RN aware.
[2022-10-15 05:25] LABS: Hemoglobin 5.1 g/dL (14.0-18.0)
[2022-10-15 05:26] LABS: Hematocrit 16.6 % (42.0-52.0)
[2022-10-15 05:48] LABS: Glucose Point of Care 141 mg/dl (65-105)
[2022-10-15 05:59] LABS: Alanine Aminotransferase 179 U/L (6-50); Albumin Level 1.7 g/dL (3.5-5.1); Alkaline Phosphatase 39 U/L (38-126); Anion Gap 7 mmol/L (8-16); Aspartate Amino Transferase 102 U/L (17-59); Bilirubin,Total 0.7 mg/dL (0.2-1.3); Blood Urea Nitrogen 88 mg/dL (9-20); Calcium 5.5 mg/dL (8.4-10.2); Carbon Dioxide 22 mmol/L (22-30); Chloride 110 mmol/L (98-107); Estimated CRCL calculation 31 ml/min; Estimated Glomerular Filt Rate 30; Glucose 108 mg/dL (65-110); Magnesium 2.5 mg/dL (1.6-2.3); Potassium 3.8 mmol/L (3.4-5.0); Sodium 139 mmol/L (137-145)
[2022-10-15 08:16] LABS: Glucose Point of Care 129 mg/dl (65-105)
[2022-10-15] MEDS: MIDAZOLAM 100MG/NS 100ML(*CRX) 100 MG/100 ML BAG 9 MG IV CONT (08:26)
[2022-10-15] MEDS: BUDESONIDE RESPULE NEB 0.5 MG/2 ML AMP INHALATION (08:52)
--- NOTE | 2022-10-15 10:51 | WPDINTPN ---
Progress Note: A&P Assessment and Plan (1) Acute respiratory failure: Qualifiers: Respiratory failure complication: hypoxia and hypercapnia Qualified Code(s): J96.01 - Acute respiratory failure with hypoxia; J96.02 - Acute respiratory failure with hypercapnia; J96.02 - Acute respiratory failure with hypercapnia Code(s): J96.00 - Acute respiratory failure, unspecified whether with hypoxia or hypercapnia Status: Acute Assessment and Plan: Secondary to COVID-19 pneumonia patient presented on 10/02/2022 with shortness of breath, productive cough, fevers, chills, chest x-ray showed bilateral pneumonia -during the course of his hospital stay a he developed worsening shortness of breath, increasing oxygen requirements, was placed on BiPAP on 10/04/2022. -10/05/2022 a.m. patient was transfer the ICU for hypoxic respiratory failure, tachypnea, increased work of breathing. For which he required intubation. Post intubation patient was hypoxic and dyssynchronous with the ventilator. -10/10 patient was placed in prone position. FiO2 improved up to 40%. Peep was decreased to 10 - 10/11 patient was placed back in supine position and FiO2 had to be increased to 60%. Will plan for prone ventilation again today -10/12 patient was placed in prone position again last night and did well and currently down to 40% FiO2 and 10 of PEEP. Now in supine position. Continue Lasix - 10/13 FiO2 increased overnight again to 80%. Will place patient in prone position again. Rocuronium 50 mg IV x1. Peep is at 10. - 10/14: FiO2 was increased overnight again to 100%, patient also requires rocuronium IV x1 dose. During the course of the day patient was desaturating and peep was increased to 12 and patient remained on 100% FiO2. He was also placed in prone position. -ABG reviewed -chest x-ray reviewed. -continue bronchodilators, Pulmicort -continue fentanyl and Versed infusion (2) Pneumonia: Code(s): J18.9 - Pneumonia, unspecified organism Status: Acute Assessment and Plan: Bilateral middle and lower lung opacities -patient has completed full course of vancomycin, cefepime and azithromycin -10/09 MRSA screen is negative and culture negative -sputum cultures negative till date (3) Septic shock: Code(s): A41.9 - Sepsis, unspecified organism; R65.21 - Severe sepsis with septic shock Status: Acute Assessment and Plan: Off vasopressors now -10/02/2022 blood cultures, preliminary results are negative x2 -10/05/2022: Urine cultures - no growth -10/05/2022 blood cultures: Preliminary report is negative x2 -10/05/2022 MRSA screen : No MRSA isolated -10/05/2022 sputum cultures are negative to date -10/05: PICC line is in place 10/13-febrile overnight. Increased oxygen requirement, Change Bonilla, check UA with micro, -10/13: Blood cultures growing Gram-positive cocci in clusters 1/2 bottles -10/13: Sputum cultures pending -10/13: Continue vancomycin and Zosyn (4) COVID-19: Code(s): U07.1 - COVID-19 Status: Acute Assessment and Plan: Patient was tested positive for SARS-CoV-2 PCR on 10/02/2022. According the records he has not received any COVID vaccine -completed course of remdesivir dexamethasone -continue baricitinib -continue antibiotics as above -continue airborne and contact isolation and precautions (5) Acute kidney injury superimposed on CKD: Code(s): N17.9 - Acute kidney failure, unspecified; N18.9 - Chronic kidney disease, unspecified Status: Acute Assessment and Plan: Patient presented with acute kidney injury, has a history of chronic kidney disease stage 3 -creatinine on admission was 1.6 -patient was given adequate amount of fluids, creatinine is down to normal -elevated BUN likely secondary to steroids -patient is off all IV fluids and has been receiving Lasix off and on -continue monitor urine output, renal function electrolytes -10/15 decreased urin
[2022-10-15] MEDS: LORazepam INJ (*CRX) 2 MG/ML VIAL IV PUSH ×2 (11:35→12:07)
[2022-10-15] MEDS: MORPHINE SULFATE INJ (*CRX) 10 MG/ML AMP 5 MG IV PUSH (11:35)
[2022-10-15] MEDS: MORPHINE SULFATE (*CRX) 2 MG/ML INJ IV PUSH (12:08)
--- NOTE | 2022-10-15 14:27 | PM.DDS ---
Discharge Summary Date and Time Date of : 10/15/22 Time of : 13:10 Probable Cause of Probable Cause of : Acute respiratory failure Sepsis Pneumonia Covid infection GI bleed Acute on chronic kidney failure Transaminitis H/o Dm type 2 Summary Hospital Course: (1) Acute respiratory failure: ?Qualifiers: ?Respiratory failure complication:?hypoxia and hypercapnia? Qualified Code(s):?J96.01 - Acute respiratory failure with hypoxia; J96.02 - Acute respiratory failure with hypercapnia; J96.02 - Acute respiratory failure with hypercapnia ?Code(s): J96.00 - Acute respiratory failure, unspecified whether with hypoxia or hypercapnia ?Status:?Acute ?Assessment and Plan: Secondary to COVID-19 pneumonia ?patient presented on 10/02/2022 with shortness of breath, productive cough, fevers, chills, chest x-ray showed bilateral pneumonia -during the course of his hospital stay a he developed worsening shortness of breath, increasing oxygen requirements, was placed on BiPAP on 10/04/2022. -10/05/2022?a.m. patient was transfer the ICU for hypoxic respiratory failure, tachypnea, increased work of breathing.? For which he?required intubation.? Post intubation patient was hypoxic and dyssynchronous with the ventilator. -10/10 patient was placed in prone position.? FiO2 improved up to 40%.? Peep was decreased to 10 - 10/11 patient was placed back in supine position and FiO2 had to be increased to 60%.? Will plan for prone ventilation again today -10/12 patient was placed in prone position again last night and did well and currently down to 40% FiO2 and 10 of PEEP.? Now in supine position.? Continue Lasix - 10/13 FiO2 increased overnight again to 80%.? Will place patient in prone position again.? Rocuronium 50 mg IV x1.? Peep is at 10.? - 10/14:? FiO2 was increased overnight again to 100%, patient also requires rocuronium IV x1 dose.? During the course of the day patient was desaturating and peep was increased to 12 and patient remained on 100% FiO2.? He was also placed in prone position. -ABG reviewed -chest x-ray reviewed.? -continue bronchodilators, Pulmicort -continue fentanyl and Versed infusion - family is going to withdraw support (2) Pneumonia: ?Code(s): J18.9 - Pneumonia, unspecified organism ?Status:?Acute ?Assessment and Plan: Bilateral middle and lower lung opacities -patient has completed full course of vancomycin, cefepime and azithromycin - family is going to withdraw support -10/09 MRSA screen is negative and culture negative? -sputum cultures negative till date (3) Septic shock: ?Code(s): A41.9 - Sepsis, unspecified organism; R65.21 - Severe sepsis with septic shock ?Status:?Acute ?Assessment and Plan: Off vasopressors now - family is going to withdraw support -10/02/2022 blood cultures, preliminary results are negative x2 -10/05/2022:? Urine cultures - no growth -10/05/2022 blood cultures:? Preliminary report is negative x2 -10/05/2022 MRSA screen :? No MRSA isolated -10/05/2022 sputum cultures are negative to date -10/05: PICC line is in place 10/13-febrile overnight.? Increased oxygen requirement, Change Bonilla, check UA with micro, -10/13:? Blood cultures growing Gram-positive cocci in clusters 1/2 bottles -10/13:? Sputum cultures pending -10/13:? Continue vancomycin and Zosyn (4) COVID-19: ?Code(s): U07.1 - COVID-19 ?Status:?Acute ?Assessment and Plan: Patient was tested positive for SARS-CoV-2 PCR on 10/02/2022.? According the records he has not received any COVID vaccine -completed course of remdesivir dexamethasone -continue baricitinib -continue antibiotics as above -continue airborne and contact isolation and precautions - family is going to withdraw support (5) Acute kidney injury superimposed on CKD: ?Code(s): N17.9 - Acute kidney failure, unspecified; N18.9 - Chronic kidney disease, unspecified ?Status:?Acute ?Assess
== END 2022-10-15 12:46 | disposition expired | DRG 870 ==
LOC: ANHED 20:13 → ANH2MED 21:20 → ANHIMU 10-05 05:45 → ANHICU 10-05 06:45
PROVIDERS: Chiropractor; Emergency Medicine; Internal Medicine; Nurse Practitioner; Admitting Provider Internal Medicine; Emergency Provider Emergency Medicine; PCP Family Medicine; Visit Provider Family Medicine
DX: A41.89 Other specified sepsis (principal); R65.21 Severe sepsis with septic shock; U07.1 COVID-19; J12.82 Pneumonia due to coronavirus disease 2019; J96.01 Acute respiratory failure with hypoxia; J15.9 Unspecified bacterial pneumonia; K20.91 Esophagitis, unspecified with bleeding; K29.71 Gastritis, unspecified, with bleeding; G93.41 Metabolic encephalopathy; N17.9 Acute kidney failure, unspecified; I13.0 Hypertensive heart and chronic kidney disease with heart failure and stage 1 through stage 4 chronic kidney disease, or unspecified chronic kidney disease; E11.65 Type 2 diabetes mellitus with hyperglycemia; E11.22 Type 2 diabetes mellitus with diabetic chronic kidney disease; N18.30 Chronic kidney disease, stage 3 unspecified; I50.9 Heart failure, unspecified; E78.00 Pure hypercholesterolemia, unspecified; E78.5 Hyperlipidemia, unspecified; Z95.2 Presence of prosthetic heart valve; Z95.1 Presence of aortocoronary bypass graft
CPT/HCPCS: 36415; 36569; 36600; 71045; 71046; 74018; 76705; 80048; 80053; 80074; 80076; 80202; 81001; 82375; 82565; 82728; 82805; 82948; 83050; 83605; 83615; 83735; 83880; 84100; 84450; 84460; 85025; 85027; 85610; 85652; 86140; 87040; 87070; 87081; 87086; 87147; 87181; 87186; 87205; 87449; 87637; 87899; 93005; 94002; 94003; 94640; 94667; 96365; 96367; 96375; 99285; A9270; C1751; C8929; C9113; J0248; J0456; J0613; J0692; J0696; J1100; J1650; J1815; J1940; J2060; J2250; J2270; J2543; J2704; J2765; J2997; J3010; J3370; J3480; J7030; J7060; P9047; Q9957